=== PATIENT | male | born 1970 | race Caucasian/White ===

== ENCOUNTER 2018-04-11 01:04 | Inpatient (IN) | payer OTHER ==
[~2018-04-11] VITALS: Ht 172.7 cm; Wt 83.9 kg
[2018-04-11] VITALS (7 sets, daily range): BP systolic 115–141; BP diastolic 54–81
[2018-04-11] MEDS ORDERED: LEVETIRACETAM1000 MG ORAL (01:17)
[2018-04-11] MEDS ORDERED: PANTOPRAZOLE SO40 MG ORAL (01:17)
[2018-04-11] MEDS ORDERED: VENTOLIN HFA18 GM INH (01:17)
[2018-04-11] MEDS ORDERED: NICODERM CQ1 EAC3 TD (01:17)
[2018-04-11] MEDS ORDERED: TOPIRAMATE100 MG ORAL (01:17)
[2018-04-11] MEDS ORDERED: NORCO 5-325 TA1 EACH ORAL (01:17)
[2018-04-11] MEDS ORDERED: LORAZEPAM0.5 MG ORAL (01:17)
[2018-04-11] MEDS ORDERED: RISPERDAL1 MG PO (01:17)
[2018-04-11] MEDS ORDERED: ROBAFEN-DM SYR118 ML PO (01:17)
[2018-04-11] MEDS ORDERED: TRIPLE ANTIBIO1 EAC1 TP (01:17)
[2018-04-11 02:54] LABS: BASOPHILS % (AUTO) 0.5 % (0.0-2.0); EOSINOPHILS % (AUTO) 3.7 % (0.0-3.0); HEMATOCRIT 36.6 % (42.0-52.0); HEMOGLOBIN 12.3 G/DL (14.2-18.0); LYMPHOCYTES % (AUTO) 36.9 % (20.0-45.0); MEAN CORPUSCULAR VOLUME 86 FL (80-99); MONOCYTES % (AUTO) 7.9 % (1.0-10.0); NEUTROPHILS % (AUTO) 50.9 % (45.0-75.0); PLATELET COUNT 233 K/UL (150-450); RED BLOOD COUNT 4.25 M/UL (4.70-6.10); WHITE BLOOD COUNT 7.9 K/UL (4.8-10.8)
[2018-04-11 02:56] LABS: ANION GAP 9 mmol/L (5-15); BLOOD UREA NITROGEN 14 mg/dL (7-18); CALCIUM 8.6 MG/DL (8.5-10.1); CARBON DIOXIDE 24 MMOL/L (21-32); CHLORIDE 106 MMOL/L (98-107); CREATININE 0.8 MG/DL (0.55-1.30); POTASSIUM 3.7 MMOL/L (3.5-5.1); SODIUM 139 MMOL/L (136-145)
[2018-04-11 03:00] LABS: ALANINE AMINOTRANSFERASE 15 U/L (12-78); ALBUMIN 3.6 G/DL (3.4-5.0); ALBUMIN/GLOBULIN RATIO 1.1 (1.0-2.7); ALKALINE PHOSPHATASE 45 U/L (46-116); ASPARTATE AMINO TRANSFERASE 12 U/L (15-37); BILIRUBIN,TOTAL 0.2 MG/DL (0.2-1.0)
[2018-04-11] MEDS ORDERED: CARBAMAZEPINE ORAL (03:13)
[2018-04-11] MEDS ORDERED: DULERA 200 MCG/13 GM IH (03:13)
[2018-04-11] MEDS ORDERED: CLOBAZAM10 MG PO (03:13)
[2018-04-11] MEDS ORDERED: TRICOR54 MG ORAL (03:13)
[2018-04-11] MEDS ORDERED: BENZTROPINE ME0.5 MG PO (03:13)
--- NOTE | 2018-04-11 04:45 | Emergency Room Report ---
History of Present Illness General Chief Complaint: Behavioral Complaint Source: Patient, Medical Record, EMS Present Illness HPI Patient presents with agitation. He is at a [facility] facility for seizures and schizoaffective bipolar disorder. Apparently he gets agitated when female nurses to attend to him. They were changing his diaper and he started to become combative. Is also spitting at people. She denies any suicidal or homicidal ideation. However the police are placing him on a 5150 hold. It is uncertain whether he was medicated before he was sent in. No seizure activity was noted. The patient denies pain, shortness of breath, nausea vomiting diarrhea or dysuria. (He seems to understand these questions.) The patient has a history of seizures. The patient has a history of bipolar schizoaffective disorder. Allegedly he's had a CVA with hemiplegia (however, exam is against this). Allergies: Coded Allergies: No Known Allergies (Unverified , 04/11/18) Patient History Limited by: medical condition Past Medical History: see triage record, old chart reviewed Social History: Denies: smoking, alcohol use, drug use Social History Narrative [facility] Reviewed Nursing Documentation: PMH: Agreed; PSxH: Agreed Nursing Documentation-PMH Past Medical History: No History, Except For Hx Gastrointestinal Problems: Yes - dysphagia, muscle weakness Hx Neurological Problems: Yes - history of falling, cerebral palsy Hx Cerebrovascular Accident: Yes - hemiphlegia, Hx Seizures: Yes - epilepsy Review of Systems All Other Systems: limited Physical Exam Vital Signs Date Time Temp Pulse Resp B/P (MAP) Pulse Ox O2 Delivery O2 Flow Rate FiO2 04/11/18 01:05 98.2 70 18 110/70 98 Room Air Sp02 EP Interpretation: reviewed, normal General Appearance: Chronically Ill Head: normocephalic Eyes: bilateral eye normal inspection, bilateral eye PERRL ENT: moist mucus membranes - poor dentition Neck: supple Respiratory: lungs clear, normal breath sounds Cardiovascular #1: regular rate, rhythm Cardiovascular #2: 2+ radial (R) Gastrointestinal: normal inspection, normal bowel sounds, non tender, no mass, non-distended Genitourinary: other - uncircumcised Musculoskeletal: back normal, normal range of motion Neurologic: alert, motor strength/tone normal, DTRs symmetric, sensory intact, other - yes and no answers Psychiatric: no suicidal/homicidal ideation, depressed affect Skin: normal inspection, warm/dry Medical Decision Making Diagnostic Impression: Primary Impression: Violent behavior Additional Impressions: Schizoaffective disorder, bipolar type Delirium ER Course Patient presents with violent behavior with history of schizoaffective bipolar disorder and seizures. Differential includes exacerbation of underlying disease , brain bleed, underlying infection, electrolyte imbalance amongst others. Patient will be evaluated with EKG, CT of the head, and labs. The patient will receive IV hydration. At this time he is no longer threatening staff or violent. The police placed him on a 5150 and therefore either he will need to be admitted to the hospital or evaluated by a psychiatrist in the morning. EKG with normal sinus rhythm, nonspecific ST-T wave changes rate of 67. Labs normal WBC, low H/H. CMP essentially normal. Tox + for benzos. UA with nitrites but few WBC (uncirc). Patient needed sedation for CT of head. Kicking at RN and non-behavioral restraints applied until sedated. Improved with sedation. Still with poor following commands. The facility where he came from is unable to deal with uncontrolled behavior. Due to the abnormal CT and continued ALOC, needs admission for further evaluation of delirium and violent behavior. Admit med with Dr. Jose Carlos tee. Also requested consultation from Dr. Crowley. Laboratory Tests Test 04/11/18 02:20 04/11/18 05:35 White Blood Count 7.9 K/UL (4.8-10.8) Red Blood Count 4.25 M/UL (4.70-6.10) L Hemoglobin 12.3 G/DL (14.2-18.0) L Hematocrit 36.6 % (42.0-52.0) L Mean Corpuscular Volume 86 FL (80-99) Mean Corpuscular Hemoglobin 29.0 PG (27.0-31.0) Mean Corpuscular Hemoglobin Concent 33.6 G/DL (32.0-36.0) Red Cell Distribution Width 11.0 % (11.6-14.8) L Platelet Count 233 K/UL (150-450) Mean Platelet Volume 5.5 FL (6.5-10.1) L Neutrophils (%) (Auto) 50.9 % (45.0-75.0) Lymphocytes (%) (Auto) 36.9 % (20.0-45.0) Monocytes (%) (Auto) 7.9 % (1.0-10.0) Eosinophils (%) (Auto) 3.7 % (0.0-3.0) H Basophils (%) (Auto) 0.5 % (0.0-2.0) Sodium Level 139 MMOL/L (136-145) Potassium Level 3.7 MMOL/L (3.5-5.1) Chloride Level 106 MMOL/L (98-107) Carbon Dioxide Level 24 MMOL/L (21-32) Anion Gap 9 mmol/L (5-15) Blood Urea Nitrogen 14 mg/dL (7-18) Creatinine 0.8 MG/DL (0.55-1.30) Estimate Glomerular Filtration Rate > 60 mL/min (>60) Glucose Level 83 MG/DL (74-106) Calcium Level 8.6 MG/DL (8.5-10.1) Total Bilirubin 0.2 MG/DL (0.2-1.0) Aspartate Amino Transferase (AST) 12 U/L (15-37) L Alanine Aminotransferase (ALT) 15 U/L (12-78) Alkaline Phosphatase 45 U/L (46-116) L Total Protein 7.0 G/DL (6.4-8.2) Albumin 3.6 G/DL (3.4-5.0) Globulin 3.4 g/dL Albumin/Globulin Ratio 1.1 (1.0-2.7) Salicylates Level 0.9 ug/mL (2.8-20) L Acetaminophen Level < 2 MCG/ML (10-30) L Serum Alcohol < 3 mg/dL Urine Opiates Screen Negative (NEGATIVE) Urine Barbiturates Screen Negative (NEGATIVE) Phencyclidine (PCP) Screen Negative (NEGATIVE) Urine Amphetamines Screen Negative (NEGATIVE) Urine Benzodiazepines Screen Positive (NEGATIVE) H Urine Cocaine Screen Negative (NEGATIVE) Urine Marijuana (THC) Screen Negative (NEGATIVE) EKG Diagnostic Results Rate: normal Rhythm: NSR ST Segments: no acute changes Rhythm Strip Diag. Results EP Interpretation: yes Rhythm: NSR, no PVC's, no ectopy Chest X-Ray Diagnostic Results Chest X-Ray Diagnostic Results : Chest X-Ray Ordered: Yes # of Views/Limited/Complete: 1 View Indication: Other EP Interpretation: Yes CT/MRI/US Diagnostic Results CT/MRI/US Diagnostic Results : Imaging Test Ordered: head Impression assymmetric ventricles Last Vital Signs Date Time Temp Pulse Resp B/P (MAP) Pulse Ox O2 Delivery O2 Flow Rate FiO2 04/11/18 08:06 80 15 123/70 99 Room Air 04/11/18 06:00 98.2 Status: improved Disposition: ADMITTED INPATIENT Condition: Serious Referrals: NON PHYSICIAN (PCP) Bo Monreal MD Apr 11, 2018 04:45
[2018-04-11] MEDS ORDERED: LORazepam Inj 2mg/ml 1ml IV ONE (05:45)
[2018-04-11 08:22] LABS: APPEARANCE,URINE SLIGHTLY CLOUDY; BILIRUBIN, URINE NEGATIVE (NEGATIVE); COLOR,URINE PALE YELLOW; GLUCOSE, URINE (UA) NEGATIVE (NEGATIVE); KETONES,URINE NEGATIVE (NEGATIVE); LEUKOCYTE ESTERASE ,URINE NEGATIVE (NEGATIVE); NITRITE,URINE POSITIVE (NEGATIVE); PH,URINE 7 (4.5-8.0); PROTEIN,URINE NEGATIVE (NEGATIVE); UROBILINOGEN,URINE NORMAL MG/DL (0.0-1.0)
--- NOTE | 2018-04-11 09:55 | Diagnostic Imaging Report ---
EXAM: CT Head Without Intravenous Contrast CLINICAL HISTORY: ALOC TECHNIQUE: Axial computed tomography images of the head/brain without intravenous contrast. CTDI is 70.53 mGy and DLP is 1425 mGy-cm. One or more of the following dose reduction techniques were used: automated exposure control, adjustment of the mA and/or kV according to patient size, use of iterative reconstruction technique. COMPARISON: No relevant prior studies available. FINDINGS: Brain: No evidence of acute intracranial hemorrhage or mass effect. There is abnormal configuration of the brain parenchyma, most likely congenital, with offset of the falx cerebri to the left with asymmetric decreased volume of the left cerebral hemisphere relative to the right, with partial extension of the left frontal and parietal lobes to the right of the falx. Ventricles: Unremarkable. No ventriculomegaly. Bones/joints: Unremarkable. No depressed skull fracture. Soft tissues: Unremarkable. Sinuses: Unremarkable as visualized. No acute sinusitis. Mastoid air cells: Unremarkable as visualized. No mastoid effusion. IMPRESSION: 1. No evidence of acute intracranial hemorrhage. 2. 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
--- NOTE | 2018-04-11 10:15 | History and Physical Report ---
DATE OF ADMISSION: 04/11/2018 TIME SEEN: On 04/11/2018 at 9 a.m. CONSULTANTS: 1. Lenora Ponce M.D. 2. Luciano Mcdonald M.D. CHIEF COMPLAINT: Delirium, bipolar, confusion. BRIEF HISTORY: This is a 48-year-old male, who presents to [facility] this morning, very agitated, confused, and had to be sedated. Currently lethargic, sedated, he is on 5150 hold. We will admit shortly for psych evaluation. Currently, lethargic in bed, nonverbal. REVIEW OF SYSTEMS: Unavailable. PAST MEDICAL HISTORY: Include bipolar, violent behavior. PAST SURGICAL HISTORY: Unknown. ALLERGIES: Denies. MEDICATIONS: Include lorazepam. SOCIAL HISTORY: Unable to obtain secondary to the patient being very lethargic and sedated now. PHYSICAL EXAMINATION: GENERAL: Lethargic, sleepy in bed, sedated in the ER [facility]. VITAL SIGNS: Temperature is 98 degrees, pulse 80, respiratory rate 14, blood pressure 119/54. CARDIOVASCULAR: No murmur. LUNGS: Distant and clear. ABDOMEN: Bowel sounds positive. Nontender. Nondistended. EXTREMITIES: No cyanosis or edema. NEUROLOGIC: The patient is flaccid in bed, very sedated currently. LABORATORY AND DIAGNOSTIC DATA: Laboratories at this time show hemoglobin 12.3, otherwise CBC is normal. BMP is normal. Urinalysis is positive nitrites, otherwise negative. Urine-tox is positive for benzo. ASSESSMENT: Delirium, UTI, bipolar, anemia, confusion. PLAN: IV fluid. Dietary followup. Psych treatment. Antibiotics per Infectious Disease, Transfer to psych hospital if possible. We will continue to follow this patient. CBC and BMP in the morning. Jareth Branch D.O. DR: Jessi JOB#: [id number] CC:
[2018-04-11] MEDS ORDERED: Mylanta II UD 30ml ORAL PRN (12:45)
[2018-04-11] MEDS ORDERED: Miralax 17gm pkt ORAL PRN (12:45)
[2018-04-11] MEDS ORDERED: Norco 5mg/325mg tab ORAL PRN (12:45)
[2018-04-11] MEDS ORDERED: LORazepam Inj 2mg/ml 1ml IV PRN (12:45)
[2018-04-11] MEDS ORDERED: Morphine Sulfate 2mg/ml Inj IVP PRN (12:45)
--- NOTE | 2018-04-11 12:57 | Consultation ---
Consult Note Consult Note # [id number] Mc Staples MD Apr 11, 2018 12:57
[2018-04-11] MEDS: Topiramate 100mg tab ORAL SCH (17:39)
--- NOTE | 2018-04-11 18:30 | Consultation ---
DATE OF CONSULTATION: 04/11/2018 INFECTIOUS DISEASE CONSULTATION CONSULTING PHYSICIAN: Mc Staples M.D. REFERRING PHYSICIAN: Jareth Branch D.O. REASON FOR CONSULTATION: Evaluation of the patient for sepsis, possible need for antibiotic treatment. HISTORY OF PRESENT ILLNESS: The patient is a 48-year-old male with multiple medical problems, who was brought to this medical center due to worsening of mental status. Infectious Diseases consultation has been requested for possible sepsis as the main contributing factor. There is not much information available, however, according to nurse, the patient's mental status has changed compared to his baseline. The patient is poor historian. Much of the information is gathered through the chart and speaking to staff. PAST MEDICAL HISTORY: 1. Bipolar disorder. 2. History of cerebral palsy. 3. History of seizure disorder. SOCIAL HISTORY: The patient lives in a longterm. ALLERGIES: No known drug allergies. MEDICATIONS: Currently off of antibiotics. PHYSICAL EXAMINATION: VITAL SIGNS: Temperature 98.2, pulse 86, blood pressure 122/70, respiratory rate 15. HEENT: No pale conjunctivae. No icterus. NECK: No lymphadenopathy. CHEST: Clear. HEART: S1 and S2. ABDOMEN: Soft, nontender. EXTREMITIES: No cyanosis at this time. NEUROLOGIC: Awake, appears to be confused. LABORATORY AND DIAGNOSTIC DATA: UA, nitrite positive, 2-4 white blood cells, red blood cells. Head CT, no acute process. ASSESSMENT: 1. Worsening of mental status compared to the baseline, it appears that the patient has some improvement during this stay. 2. No evidence of infectious process at this time (normal white blood cells, afebrile, no tachycardia or hypertension). We will rule out probable bacteremia, urinary tract infection, or pneumonia. PLAN: 1. We will monitor the patient off of antibiotics at this point. 2. We will send cultures (blood, urine, sputum). 3. We will obtain a chest x-ray. 4. We will monitor the patient's laboratories, cultures. 5. If the patient's medical condition worsens due to significant infection based on laboratories, we will start the patient on antibiotic treatment. Mc Staples M.D. DR: Shad JOB#: [id number] CC:
[2018-04-12] VITALS: BP 125/66
[2018-04-12 04:00] VITALS: BP 132/70
[2018-04-12 08:00] VITALS: BP 114/72
[2018-04-12] MEDS: Topiramate 100mg tab ORAL SCH ×2 (08:10→17:41)
[2018-04-12 08:11] LABS: BASOPHILS % (AUTO) 0.6 % (0.0-2.0); EOSINOPHILS % (AUTO) 3.3 % (0.0-3.0); HEMATOCRIT 36.2 % (42.0-52.0); HEMOGLOBIN 12.5 G/DL (14.2-18.0); LYMPHOCYTES % (AUTO) 29.4 % (20.0-45.0); MEAN CORPUSCULAR VOLUME 85 FL (80-99); MONOCYTES % (AUTO) 6.4 % (1.0-10.0); NEUTROPHILS % (AUTO) 60.3 % (45.0-75.0); PLATELET COUNT 235 K/UL (150-450); RED BLOOD COUNT 4.26 M/UL (4.70-6.10); WHITE BLOOD COUNT 9.4 K/UL (4.8-10.8)
--- NOTE | 2018-04-12 08:37 | General Progress Note ---
Assessment/Plan Problem List: (1) Anemia ICD Codes: D64.9 - Anemia, unspecified SNOMED: 347451861 (2) Delirium ICD Codes: R41.0 - Disorientation, unspecified SNOMED: 4879256 (3) Schizoaffective disorder, bipolar type ICD Codes: F25.0 - Schizoaffective disorder, bipolar type SNOMED: 36404345 (4) Violent behavior ICD Codes: R45.6 - Violent behavior SNOMED: 385277449 Status: unchanged Assessment/Plan ot pt diet psyc tx /transfer cbc bmp am Subjective Constitutional: Reports: weakness Allergies: Coded Allergies: No Known Allergies (Unverified , 04/11/18) All Systems: reviewed and negative except above Subjective calm in bed consfused Objective Last 24 Hour Vital Signs Date Time Temp Pulse Resp B/P (MAP) Pulse Ox O2 Delivery O2 Flow Rate FiO2 04/12/18 08:00 98.4 80 19 114/72 (86) 98 04/12/18 04:00 97.9 71 18 132/70 (90) 97 04/12/18 00:00 98.2 69 20 125/66 (85) 97 04/11/18 20:14 Room Air 04/11/18 20:00 97.7 70 18 129/81 (97) 98 04/11/18 16:00 97.2 70 18 118/72 (87) 99 04/11/18 14:30 Room Air 04/11/18 13:03 97.0 67 18 115/74 (88) 100 Intake and Output 04/11/18 04/12/18 19:00 07:00 Intake Total 620 ml 650 ml Output Total 850 ml Balance 620 ml -200 ml Intake Oral 620 ml 650 ml Output Urine Total 850 ml # Voids 5 Laboratory Tests 04/12/18 06:39: White Blood Count 9.4, Red Blood Count 4.26L, Hemoglobin 12.5L, Hematocrit 36.2L , Mean Corpuscular Volume 85, Mean Corpuscular Hemoglobin 29.3, Mean Corpuscular Hemoglobin Concent 34.5, Red Cell Distribution Width 11.0L, Platelet Count 235, Mean Platelet Volume 5.9L, Neutrophils (%) (Auto) 60.3, Lymphocytes (%) (Auto) 29.4, Monocytes (%) (Auto) 6.4, Eosinophils (%) (Auto) 3.3H, Basophils (%) (Auto) 0.6, Sodium Level [Pending], Potassium Level [Pending ], Chloride Level [Pending], Carbon Dioxide Level [Pending], Blood Urea Nitrogen [Pending], Creatinine [Pending], Estimat Glomerular Filtration Rate [ Pending], Glucose Level [Pending], Calcium Level [Pending], Total Bilirubin [ Pending], Aspartate Amino Transf (AST/SGOT) [Pending], Alanine Aminotransferase (ALT/SGPT) [Pending], Alkaline Phosphatase [Pending], Total Protein [Pending], Albumin [Pending], Globulin [Pending], Triglycerides Level [Pending], Cholesterol Level [Pending], LDL Cholesterol [Pending], HDL Cholesterol [Pending ], Cholesterol/HDL Ratio [Pending], Thyroid Stimulating Hormone (TSH) [Pending] Height (Feet): 5 Height (Inches): 8.00 Weight (Pounds): 203 General Appearance: confused EENT: normal ENT inspection Neck: normal alignment Cardiovascular: normal peripheral pulses, normal rate, regular rhythm Respiratory/Chest: chest wall non-tender, lungs clear, normal breath sounds Abdomen: normal bowel sounds, non tender, soft Extremities: normal inspection Edema: no edema noted Arm (L), no edema noted Arm (R), no edema noted Leg (L), no edema noted Leg (R), no edema noted Pedal (L), no edema noted Pedal (R), no edema noted Generalized Neurologic: motor weakness Skin: normal pigmentation, warm/dry Jareth Branch DO Apr 12, 2018 08:37
[2018-04-12 08:41] LABS: ALANINE AMINOTRANSFERASE 19 U/L (12-78); ALBUMIN 3.8 G/DL (3.4-5.0); ALBUMIN/GLOBULIN RATIO 1.1 (1.0-2.7); ALKALINE PHOSPHATASE 47 U/L (46-116); ANION GAP 12 mmol/L (5-15); ASPARTATE AMINO TRANSFERASE 16 U/L (15-37); BILIRUBIN,TOTAL 0.2 MG/DL (0.2-1.0); BLOOD UREA NITROGEN 8 mg/dL (7-18); CARBON DIOXIDE 20 MMOL/L (21-32); CHLORIDE 104 MMOL/L (98-107); CHOLESTEROL 158 MG/DL (< 200); CREATININE 0.9 MG/DL (0.55-1.30); HDL CHOLESTEROL 48 MG/DL (40-60); POTASSIUM 3.7 MMOL/L (3.5-5.1); SODIUM 136 MMOL/L (136-145); TRIGLYCERIDES 100 MG/DL (30-150)
--- NOTE | 2018-04-12 08:57 | Diagnostic Imaging Report ---
EXAM: XR Chest, 1 View CLINICAL HISTORY: ABN CHST TECHNIQUE: Frontal view of the chest. COMPARISON: No relevant prior studies available. FINDINGS: Lungs: Unremarkable. No consolidation. Pleural space: Unremarkable. No pneumothorax. Heart: Unremarkable. No cardiomegaly. Mediastinum: Unremarkable. Bones/joints: Chronic left rib deformities. IMPRESSION: No evidence of acute pulmonary disease
[2018-04-12 12:00] VITALS: BP 129/82
[2018-04-12 16:00] VITALS: BP 118/79
[2018-04-12] MEDS: LORazepam 0.5mg tab ORAL PRN (16:39)
[2018-04-12 20:00] VITALS: BP 141/64
[2018-04-12] MEDS: Zolpidem 5mg tab ORAL PRN (20:28)
[2018-04-13 04:08] VITALS: BP 137/71
[2018-04-13 06:31] LABS: BASOPHILS % (AUTO) 0.6 % (0.0-2.0); EOSINOPHILS % (AUTO) 3.6 % (0.0-3.0); HEMATOCRIT 40.3 % (42.0-52.0); HEMOGLOBIN 13.9 G/DL (14.2-18.0); LYMPHOCYTES % (AUTO) 35.8 % (20.0-45.0); MEAN CORPUSCULAR VOLUME 86 FL (80-99); MONOCYTES % (AUTO) 7.5 % (1.0-10.0); NEUTROPHILS % (AUTO) 52.5 % (45.0-75.0); PLATELET COUNT 269 K/UL (150-450); WHITE BLOOD COUNT 7.4 K/UL (4.8-10.8)
[2018-04-13 06:54] LABS: ANION GAP 10 mmol/L (5-15); BLOOD UREA NITROGEN 3 mg/dL (7-18); CALCIUM 9.5 MG/DL (8.5-10.1); CARBON DIOXIDE 24 MMOL/L (21-32); CHLORIDE 103 MMOL/L (98-107); CREATININE 0.8 MG/DL (0.55-1.30); POTASSIUM 3.9 MMOL/L (3.5-5.1); SODIUM 136 MMOL/L (136-145)
[2018-04-13 08:00] VITALS: BP 120/76
[2018-04-13] MEDS: Topiramate 100mg tab ORAL SCH ×2 (08:01→17:10)
[2018-04-13] MEDS: LORazepam 0.5mg tab ORAL PRN ×2 (10:41→17:10)
[2018-04-13 12:00] VITALS: BP 118/87
--- NOTE | 2018-04-13 12:23 | Infectious Diseases Prog Note ---
Assessment/Plan Assessment/Plan ASSESSMENT: 1. Worsening of mental status compared to the baseline, it appears that the patient has some improvement during this stay. -CT brain: No evidence of acute intracranial hemorrhage. 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 2. No evidence of infectious process at this time (normal white blood cells, afebrile, no tachycardia or hypertension). -u/a neg, ucx E.coli (colonizer) -Bcx NTD -CXR: no acute diseae -Bipolar disorder. -History of cerebral palsy. -History of seizure disorder. PLAN: 1. We will monitor the patient off of antibiotics at this point. 2. f/u cultures (blood). 3. We will monitor the patient's laboratories, cultures. 4. If the patient's medical condition worsens due to significant infection based on laboratories, we will start the patient on antibiotic treatment. Subjective Allergies: Coded Allergies: No Known Allergies (Unverified , 04/11/18) Subjective afebrile no leukocytosis off abx Objective Vital Signs Last 24 Hour Vital Signs Date Time Temp Pulse Resp B/P (MAP) Pulse Ox O2 Delivery O2 Flow Rate FiO2 04/13/18 12:00 97.2 72 18 118/87 (97) 100 04/13/18 09:00 Room Air 04/13/18 08:00 97.7 67 18 120/76 (91) 98 04/13/18 04:08 98.1 69 19 137/71 (93) 97 04/12/18 20:12 Room Air 04/12/18 20:00 98.3 73 19 141/64 (89) 98 04/12/18 16:00 98.1 72 19 118/79 (92) 98 Height (Feet): 5 Height (Inches): 8.00 Weight (Pounds): 203 Objective HEENT: No pale conjunctivae. No icterus. NECK: No lymphadenopathy. CHEST: Clear. HEART: S1 and S2. ABDOMEN: Soft, nontender. EXTREMITIES: No cyanosis at this time. NEUROLOGIC: Awake, appears to be confused. Microbiology Date/Time Source Procedure Growth Status 12/8/18 13:25 Blood Blood Culture - Preliminary NO GROWTH AFTER 24 HOURS Resulted 04/11/18 13:10 Blood Blood Culture - Preliminary NO GROWTH AFTER 24 HOURS Resulted 04/11/18 05:35 Urine,Clean Catch Urine Culture - Final Escherichia Coli Complete Laboratory Tests Test 04/13/18 05:35 White Blood Count 7.4 K/UL (4.8-10.8) Red Blood Count 4.70 M/UL (4.70-6.10) Hemoglobin 13.9 G/DL (14.2-18.0) L Hematocrit 40.3 % (42.0-52.0) L Mean Corpuscular Volume 86 FL (80-99) Mean Corpuscular Hemoglobin 29.6 PG (27.0-31.0) Mean Corpuscular Hemoglobin Concent 34.6 G/DL (32.0-36.0) Red Cell Distribution Width 11.0 % (11.6-14.8) L Platelet Count 269 K/UL (150-450) Mean Platelet Volume 6.1 FL (6.5-10.1) L Neutrophils (%) (Auto) 52.5 % (45.0-75.0) Lymphocytes (%) (Auto) 35.8 % (20.0-45.0) Monocytes (%) (Auto) 7.5 % (1.0-10.0) Eosinophils (%) (Auto) 3.6 % (0.0-3.0) H Basophils (%) (Auto) 0.6 % (0.0-2.0) Sodium Level 136 MMOL/L (136-145) Potassium Level 3.9 MMOL/L (3.5-5.1) Chloride Level 103 MMOL/L (98-107) Carbon Dioxide Level 24 MMOL/L (21-32) Anion Gap 10 mmol/L (5-15) Blood Urea Nitrogen 3 mg/dL (7-18) L Creatinine 0.8 MG/DL (0.55-1.30) Estimat Glomerular Filtration Rate > 60 mL/min (>60) Glucose Level 120 MG/DL (74-106) H Calcium Level 9.5 MG/DL (8.5-10.1) Current Medications Medications (Trade) Dose Ordered Sig/Con Route PRN Reason Start Time Stop Time Status Last Admin Dose Admin Acetaminophen (Tylenol) 650 mg Q4H PRN ORAL T>100.5 04/11/18 12:45 05/11/18 12:44 Acetaminophen/ Hydrocodone Bitart (Pope 5/325) 1 tab Q6H PRN ORAL PAIN 4-10 04/11/18 12:45 04/18/18 12:44 Al Hydroxide/Mg Hydroxide (Mylanta II) 30 ml Q6H PRN ORAL dyspepsia 04/11/18 12:45 05/11/18 12:44 Dextrose (Dextrose 50%) 25 ml Q30M PRN IV Hypoglycemia 04/11/18 13:00 05/11/18 12:48 Dextrose (Dextrose 50%) 50 ml Q30M PRN IV hypoglycemia 04/11/18 13:00 05/11/18 12:59 Levetiracetam (Keppra) 1,000 mg Q12HR ORAL 04/11/18 21:00 05/11/18 20:59 04/13/18 08:01 Lorazepam (Ativan) 0.5 mg Q4H PRN ORAL For Anxiety 04/12/18 16:30 04/19/18 16:29 04/13/18 10:41 Morphine Sulfate (Morphine Sulfate) 1 mg Q4H PRN IVP Severe Pain (Pain Scale 7-10) 04/11/18 12:45 04/18/18 12:44 Ondansetron HCl (Zofran) 4 mg Q6H PRN ORAL Nausea & Vomiting 04/13/18 10:15 05/13/18 10:14 04/13/18 10:41 Polyethylene Glycol (Miralax) 17 gm HSPRN PRN ORAL Constipation 04/11/18 12:45 05/11/18 12:44 Risperidone (RisperDAL) 1 mg QHS ORAL 04/11/18 21:00 05/11/18 20:59 04/12/18 20:28 Topiramate (Topamax) 100 mg TWICE A DAY ORAL 04/11/18 18:00 05/11/18 17:59 04/13/18 08:01 Zolpidem Tartrate (Ambien) 5 mg HSPRN PRN ORAL Insomnia 04/11/18 21:00 04/18/18 20:59 04/12/18 20:28 Tressa Sanchez M.D. Apr 13, 2018 12:23
--- NOTE | 2018-04-13 12:30 | Consultation ---
History of Present Illness General Date patient seen: Apr 13, 2018 Chief Complaint: Behavioral Complaint Present Illness HPI 48 year old male with hx of CVA with hemiplegia, dysphagia, muscle weakness, cerebral palsy, hemiplegia, schizoaffective bipolar disorder, epilepsy presented to ER from a [facility] with agitation. Apparently he gets agitated when female nurses try to attend to him. They were changing his diaper and he started to become combative. Is also spitting at people. He is admitted because of acute delirium. He was found to have pyuria as well. Allergies: Coded Allergies: No Known Allergies (Unverified , 04/11/18) Medication History Scheduled Albuterol Sulfate (Ventolin Hfa), 2 PUFFS INH EVERY 6 HOURS, (Reported) Carbamazepine (Tegretol Xr), 400 MG ORAL EVERY 12 HOURS, (Reported) Fenofibrate (Fenofibrate), 54 MG ORAL DAILY, (Reported) Levetiracetam (Levetiracetam), 1,000 MG ORAL TWICE A DAY, (Reported) Lorazepam* (Lorazepam*), 0.5 MG ORAL THREE TIMES A DAY, (Reported) Pantoprazole* (Pantoprazole*), 40 MG ORAL DAILY, (Reported) Risperidone* (Risperdal*), 1 MG PO DAILY, (Reported) Topiramate* (Topamax*), 100 MG ORAL TWICE A DAY, (Reported) Scheduled PRN Hydrocodone Bit/Acetaminophen 5-325* ([place] 5-325*), 1 TAB ORAL Q6H PRN for For Pain, (Reported) Miscellaneous Medications Benztropine Mesylate* (Cogentin*), 0.5 MG PO, (Reported) Guaifenesin/Dextromethorphan (Robafen-Dm Syrup), 118 ML PO, (Reported) Mometasone/Formoterol (Dulera 200 Mcg/5 Mcg Inhaler), 13 GM IH, (Reported) Neomy Sulf/Bacitrac Zn/Poly (Triple Antibiotic Ointment), 1 EACH TP, (Reported) Nicotine (Nicoderm Cq), 1 EACH TD, (Reported) cloBAZam (cloBAZam), 10 MG PO, (Reported) Patient History Healthcare decision maker Resuscitation status Full Code Advanced Directive on File Past Medical/Surgical History Past Medical/Surgical History: (1) Seizure disorder (2) Schizoaffective disorder, bipolar type Review of Systems All Other Systems: negative except mentioned in HPI Physical Exam General Appearance: WD/WN Lines, tubes and drains: peripheral HEENT: normocephalic, atraumatic Neck: non-tender, normal alignment Respiratory/Chest: chest wall non-tender, lungs clear Cardiovascular/Chest: normal peripheral pulses, normal rate Abdomen: normal bowel sounds, non tender Genitourinary/Rectal: normal genital exam, normal rectal exam Extremities: normal range of motion, non-tender Skin Exam: normal pigmentation Last 24 Hour Vital Signs Date Time Temp Pulse Resp B/P (MAP) Pulse Ox O2 Delivery O2 Flow Rate FiO2 04/13/18 12:00 97.2 72 18 118/87 (97) 100 04/13/18 09:00 Room Air 04/13/18 08:00 97.7 67 18 120/76 (91) 98 04/13/18 04:08 98.1 69 19 137/71 (93) 97 04/12/18 20:12 Room Air 04/12/18 20:00 98.3 73 19 141/64 (89) 98 04/12/18 16:00 98.1 72 19 118/79 (92) 98 Intake and Output 04/12/18 04/13/18 19:00 07:00 Intake Total 1314 ml 600 ml Balance 1314 ml 600 ml Intake Oral 1314 ml 600 ml # Voids 6 5 # Bowel Movements 1 Laboratory Tests Test 04/13/18 05:35 White Blood Count 7.4 K/UL (4.8-10.8) Red Blood Count 4.70 M/UL (4.70-6.10) Hemoglobin 13.9 G/DL (14.2-18.0) L Hematocrit 40.3 % (42.0-52.0) L Mean Corpuscular Volume 86 FL (80-99) Mean Corpuscular Hemoglobin 29.6 PG (27.0-31.0) Mean Corpuscular Hemoglobin Concent 34.6 G/DL (32.0-36.0) Red Cell Distribution Width 11.0 % (11.6-14.8) L Platelet Count 269 K/UL (150-450) Mean Platelet Volume 6.1 FL (6.5-10.1) L Neutrophils (%) (Auto) 52.5 % (45.0-75.0) Lymphocytes (%) (Auto) 35.8 % (20.0-45.0) Monocytes (%) (Auto) 7.5 % (1.0-10.0) Eosinophils (%) (Auto) 3.6 % (0.0-3.0) H Basophils (%) (Auto) 0.6 % (0.0-2.0) Sodium Level 136 MMOL/L (136-145) Potassium Level 3.9 MMOL/L (3.5-5.1) Chloride Level 103 MMOL/L (98-107) Carbon Dioxide Level 24 MMOL/L (21-32) Anion Gap 10 mmol/L (5-15) Blood Urea Nitrogen 3 mg/dL (7-18) L Creatinine 0.8 MG/DL (0.55-1.30) Estimat Glomerular Filtration Rate > 60 mL/min (>60) Glucose Level 120 MG/DL (74-106) H Calcium Level 9.5 MG/DL (8.5-10.1) Height (Feet): 5 Height (Inches): 8.00 Weight (Pounds): 203 Medications Current Medications Medications (Trade) Dose Ordered Sig/Con Route PRN Reason Start Time Stop Time Status Last Admin Dose Admin Acetaminophen (Tylenol) 650 mg Q4H PRN ORAL T>100.5 04/11/18 12:45 05/11/18 12:44 Acetaminophen/ Hydrocodone Bitart ([place] 5/325) 1 tab Q6H PRN ORAL PAIN 4-10 04/11/18 12:45 04/18/18 12:44 Al Hydroxide/Mg Hydroxide (Mylanta II) 30 ml Q6H PRN ORAL dyspepsia 04/11/18 12:45 05/11/18 12:44 Dextrose (Dextrose 50%) 25 ml Q30M PRN IV Hypoglycemia 04/11/18 13:00 05/11/18 12:48 Dextrose (Dextrose 50%) 50 ml Q30M PRN IV hypoglycemia 04/11/18 13:00 05/11/18 12:59 Levetiracetam (Keppra) 1,000 mg Q12HR ORAL 04/11/18 21:00 05/11/18 20:59 04/13/18 08:01 Lorazepam (Ativan) 0.5 mg Q4H PRN ORAL For Anxiety 04/12/18 16:30 04/19/18 16:29 04/13/18 10:41 Morphine Sulfate (Morphine Sulfate) 1 mg Q4H PRN IVP Severe Pain (Pain Scale 7-10) 04/11/18 12:45 04/18/18 12:44 Ondansetron HCl (Zofran) 4 mg Q6H PRN ORAL Nausea & Vomiting 04/13/18 10:15 05/13/18 10:14 04/13/18 10:41 Polyethylene Glycol (Miralax) 17 gm HSPRN PRN ORAL Constipation 04/11/18 12:45 05/11/18 12:44 Risperidone (RisperDAL) 1 mg QHS ORAL 04/11/18 21:00 05/11/18 20:59 04/12/18 20:28 Topiramate (Topamax) 100 mg TWICE A DAY ORAL 04/11/18 18:00 05/11/18 17:59 04/13/18 08:01 Zolpidem Tartrate (Ambien) 5 mg HSPRN PRN ORAL Insomnia 04/11/18 21:00 04/18/18 20:59 04/12/18 20:28 Assessment/Plan Problem List: (1) Altered level of consciousness ICD Codes: R40.4 - Transient alteration of awareness SNOMED: 5491292 (2) Pyuria ICD Codes: N39.0 - Urinary tract infection, site not specified SNOMED: 4289465, 712691376 (3) Schizoaffective disorder, bipolar type ICD Codes: F25.0 - Schizoaffective disorder, bipolar type SNOMED: 90357955 (4) Delirium ICD Codes: R41.0 - Disorientation, unspecified SNOMED: 8580709 (5) Seizure disorder ICD Codes: G40.909 - Epilepsy, unspecified, not intractable, without status epilepticus SNOMED: 935152105 Assessment/Plan symptomatic treatment psych therapy check urine cultures abx as per ID dvt prophylaxis dc planning Luciano Mcdonald MD Apr 13, 2018 12:30
--- NOTE | 2018-04-13 14:15 | General Progress Note ---
Assessment/Plan Problem List: (1) Anemia ICD Codes: D64.9 - Anemia, unspecified SNOMED: 891335323 (2) Delirium ICD Codes: R41.0 - Disorientation, unspecified SNOMED: 3932138 (3) Schizoaffective disorder, bipolar type ICD Codes: F25.0 - Schizoaffective disorder, bipolar type SNOMED: 71997097 (4) Violent behavior ICD Codes: R45.6 - Violent behavior SNOMED: 139062915 Status: stable, progressing Assessment/Plan ot pt diet psyc tx /transfer cbc bmp am Subjective Constitutional: Reports: weakness Allergies: Coded Allergies: No Known Allergies (Unverified , 04/11/18) All Systems: reviewed and negative except above Subjective calm in wc confused Objective Last 24 Hour Vital Signs Date Time Temp Pulse Resp B/P (MAP) Pulse Ox O2 Delivery O2 Flow Rate FiO2 04/13/18 12:00 97.2 72 18 118/87 (97) 100 04/13/18 09:00 Room Air 04/13/18 08:00 97.7 67 18 120/76 (91) 98 04/13/18 04:08 98.1 69 19 137/71 (93) 97 04/12/18 20:12 Room Air 04/12/18 20:00 98.3 73 19 141/64 (89) 98 04/12/18 16:00 98.1 72 19 118/79 (92) 98 Intake and Output 04/12/18 04/13/18 19:00 07:00 Intake Total 1314 ml 600 ml Balance 1314 ml 600 ml Intake Oral 1314 ml 600 ml # Voids 6 5 # Bowel Movements 1 Laboratory Tests 04/13/18 05:35: White Blood Count 7.4, Red Blood Count 4.70, Hemoglobin 13.9L, Hematocrit 40.3L , Mean Corpuscular Volume 86, Mean Corpuscular Hemoglobin 29.6, Mean Corpuscular Hemoglobin Concent 34.6, Red Cell Distribution Width 11.0L, Platelet Count 269, Mean Platelet Volume 6.1L, Neutrophils (%) (Auto) 52.5, Lymphocytes (%) (Auto) 35.8, Monocytes (%) (Auto) 7.5, Eosinophils (%) (Auto) 3.6H, Basophils (%) (Auto) 0.6, Sodium Level 136, Potassium Level 3.9, Chloride Level 103, Carbon Dioxide Level 24, Anion Gap 10, Blood Urea Nitrogen 3L, Creatinine 0.8, Estimat Glomerular Filtration Rate > 60, Glucose Level 120H, Calcium Level 9.5 Height (Feet): 5 Height (Inches): 8.00 Weight (Pounds): 203 General Appearance: lethargic EENT: normal ENT inspection Neck: normal alignment Cardiovascular: normal peripheral pulses, normal rate, regular rhythm Respiratory/Chest: chest wall non-tender, lungs clear, normal breath sounds Abdomen: normal bowel sounds, non tender, soft Extremities: normal inspection Edema: no edema noted Arm (L), no edema noted Arm (R), no edema noted Leg (L), no edema noted Leg (R), no edema noted Pedal (L), no edema noted Pedal (R), no edema noted Generalized Neurologic: motor weakness Skin: normal pigmentation, warm/dry Jareth Branch DO Apr 13, 2018 14:15
--- NOTE | 2018-04-13 15:30 | Consultation ---
DATE OF CONSULTATION: 04/11/2018 NOTE: POOR AUDIO PSYCHOTHERAPY CONSULTATION PROGRESS NOTE CONSULTING PHYSICIAN: Cornell Morrow PsyD. TREATING ATTENDING PHYSICIAN: . HISTORY OF PRESENT ILLNESS: The patient is a 48-year-old male patient. The patient is from [facility]. The patient was placed on a 5150 hold due to others and staff. The patient has history of schizophrenia and for these reasons, he was admitted to the hospital, and he was also banging his head on wolfe and is incoherent. Clinician assessed this patient. The patient continues to mumble to himself, ramble. His thoughts are disorganized, scattered lethargic, unable to focus and concentrate. He is a poor historian. The patient has been assaulting staff, aggressive, agitated, confused, disorganized, helpless, and anxious. At this time, he continues to be lethargic and unable to focus and concentrate, unable to care for his basic needs. When the patient is cleared, the patient is recommended to discharge to psychiatric facility to continue . PAST MEDICAL HISTORY: Includes history of epilepsy and cerebral palsy. ALLERGIES: The patient has no known drug allergies. SUBSTANCE ABUSE HISTORY: The patient has no history of alcohol use or illicit drug use. PAST PSYCHIATRIC HISTORY: The patient has history of schizophrenia. SOCIAL HISTORY: The patient is a 48-year-old male patient who is , financially supported by [employer]. MENTAL STATUS EXAMINATION: The patient is alert and oriented to person. Mood is irritable. Affect is labile. Thought process is disorganized. Thought content is paranoid. The patient continues to have poor attention and concentration. Poor insight and judgement and impulse control. DIAGNOSIS: Paranoid schizophrenia. PLAN: Assessed this patient, provided the patient with reality orientation. oriented to person, place, time, and situation cognitive behavior; however, the patient is extremely delusional and continues to . Transfer the patient to psychiatric hospital. The patient is on 5150 hold . This clinician has reviewed the patient's chart and discussed the treatment with treatment team. Cornell Morrow PsyD. DR: Dariela JOB#: [id number] CC:
[2018-04-13 16:00] VITALS: BP 129/88
[2018-04-13] MEDS ORDERED: LORazepam Inj 2mg/ml 1ml IM SCH (18:15)
[2018-04-13] MEDS ORDERED: DiphenhydrAMINE 50mg/ml Inj IM SCH (18:15)
[2018-04-13] MEDS ORDERED: Haloperidol 5mg/ml Inj IM SCH (18:15)
[2018-04-13 20:00] VITALS: BP 102/66
[2018-04-14] VITALS (8 sets, daily range): BP systolic 95–118; BP diastolic 55–77
[2018-04-14 07:37] LABS: BASOPHILS % (AUTO) 0.9 % (0.0-2.0); EOSINOPHILS % (AUTO) 3.8 % (0.0-3.0); HEMATOCRIT 37.8 % (42.0-52.0); LYMPHOCYTES % (AUTO) 39.7 % (20.0-45.0); MEAN CORPUSCULAR VOLUME 85 FL (80-99); MONOCYTES % (AUTO) 9.8 % (1.0-10.0); NEUTROPHILS % (AUTO) 45.8 % (45.0-75.0); PLATELET COUNT 251 K/UL (150-450); RED BLOOD COUNT 4.44 M/UL (4.70-6.10); WHITE BLOOD COUNT 6.3 K/UL (4.8-10.8)
[2018-04-14] MEDS: LORazepam 0.5mg tab ORAL PRN (07:51)
[2018-04-14 07:54] LABS: ALANINE AMINOTRANSFERASE 25 U/L (12-78); ALBUMIN 3.7 G/DL (3.4-5.0); ALKALINE PHOSPHATASE 51 U/L (46-116); ANION GAP 10 mmol/L (5-15); ASPARTATE AMINO TRANSFERASE 26 U/L (15-37); BILIRUBIN,TOTAL 0.3 MG/DL (0.2-1.0); BLOOD UREA NITROGEN 8 mg/dL (7-18); CARBON DIOXIDE 22 MMOL/L (21-32); CHLORIDE 108 MMOL/L (98-107); CREATININE 0.9 MG/DL (0.55-1.30); PHOSPHORUS 4.4 MG/DL (2.5-4.9); SODIUM 140 MMOL/L (136-145)
[2018-04-14] MEDS: Topiramate 100mg tab ORAL SCH ×2 (08:57→18:42)
[2018-04-14] MEDS ORDERED: DiphenhydrAMINE 50mg/ml Inj IM SCH (09:45)
[2018-04-14] MEDS ORDERED: LORazepam Inj 2mg/ml 1ml IM SCH (09:45)
[2018-04-14] MEDS ORDERED: Haloperidol 5mg/ml Inj IM SCH (09:45)
--- NOTE | 2018-04-14 10:14 | Infectious Diseases Prog Note ---
Assessment/Plan Assessment/Plan ASSESSMENT: 1. Worsening of mental status compared to the baseline, it appears that the patient has some improvement during this stay. -CT brain: No evidence of acute intracranial hemorrhage. 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 2. No evidence of infectious process at this time (normal white blood cells, afebrile, no tachycardia or hypertension). -u/a neg, ucx E.coli (colonizer) -Bcx NTD -CXR: no acute diseae -Bipolar disorder. -History of cerebral palsy. -History of seizure disorder. PLAN: 1. We will monitor the patient off of antibiotics at this point. 2. f/u cultures (blood). 3. We will monitor the patient's laboratories, cultures. 4. If the patient's medical condition worsens due to significant infection based on laboratories, we will start the patient on antibiotic treatment. Subjective Allergies: Coded Allergies: No Known Allergies (Unverified , 04/11/18) Subjective afebrile no leukocytosis off abx Bcx NTD Objective Vital Signs Last 24 Hour Vital Signs Date Time Temp Pulse Resp B/P (MAP) Pulse Ox O2 Delivery O2 Flow Rate FiO2 04/14/18 08:00 97.0 66 18 118/62 (80) 96 04/14/18 04:00 97.5 62 17 95/56 (69) 04/14/18 00:00 97.7 63 17 104/55 (71) 04/13/18 21:00 Room Air 04/13/18 20:00 97.3 69 16 102/66 (78) 04/13/18 16:00 97.3 78 18 129/88 (102) 78 04/13/18 12:00 97.2 72 18 118/87 (97) 100 Height (Feet): 5 Height (Inches): 8.00 Weight (Pounds): 203 Objective HEENT: No pale conjunctivae. No icterus. NECK: No lymphadenopathy. CHEST: Clear. HEART: S1 and S2. ABDOMEN: Soft, nontender. EXTREMITIES: No cyanosis at this time. NEUROLOGIC: Awake, appears to be confused. Microbiology Date/Time Source Procedure Growth Status 04/11/18 13:25 Blood Blood Culture - Preliminary NO GROWTH AFTER 48 HOURS Resulted 04/11/18 13:10 Blood Blood Culture - Preliminary NO GROWTH AFTER 48 HOURS Resulted 04/11/18 16:50 Nasal Nares MRSA Culture - Final NO METHICILLIN RESISTANT STAPH AUREUS... Complete 04/11/18 16:50 Rectum VRE Culture - Final NO VANCOMYCIN RESISTANT ENTEROCOCCUS ... Complete Laboratory Tests Test 04/14/18 07:26 White Blood Count 6.3 K/UL (4.8-10.8) Red Blood Count 4.44 M/UL (4.70-6.10) L Hemoglobin 13.0 G/DL (14.2-18.0) L Hematocrit 37.8 % (42.0-52.0) L Mean Corpuscular Volume 85 FL (80-99) Mean Corpuscular Hemoglobin 29.3 PG (27.0-31.0) Mean Corpuscular Hemoglobin Concent 34.5 G/DL (32.0-36.0) Red Cell Distribution Width 11.0 % (11.6-14.8) L Platelet Count 251 K/UL (150-450) Mean Platelet Volume 5.8 FL (6.5-10.1) L Neutrophils (%) (Auto) 45.8 % (45.0-75.0) Lymphocytes (%) (Auto) 39.7 % (20.0-45.0) Monocytes (%) (Auto) 9.8 % (1.0-10.0) Eosinophils (%) (Auto) 3.8 % (0.0-3.0) H Basophils (%) (Auto) 0.9 % (0.0-2.0) Sodium Level 140 MMOL/L (136-145) Potassium Level 4.0 MMOL/L (3.5-5.1) Chloride Level 108 MMOL/L (98-107) H Carbon Dioxide Level 22 MMOL/L (21-32) Anion Gap 10 mmol/L (5-15) Blood Urea Nitrogen 8 mg/dL (7-18) Creatinine 0.9 MG/DL (0.55-1.30) Estimat Glomerular Filtration Rate > 60 mL/min (>60) Glucose Level 102 MG/DL (74-106) Calcium Level 9.0 MG/DL (8.5-10.1) Phosphorus Level 4.4 MG/DL (2.5-4.9) Magnesium Level 1.7 MG/DL (1.8-2.4) L Total Bilirubin 0.3 MG/DL (0.2-1.0) Aspartate Amino Transf (AST/SGOT) 26 U/L (15-37) Alanine Aminotransferase (ALT/SGPT) 25 U/L (12-78) Alkaline Phosphatase 51 U/L (46-116) Total Protein 7.3 G/DL (6.4-8.2) Albumin 3.7 G/DL (3.4-5.0) Globulin 3.6 g/dL Albumin/Globulin Ratio 1.0 (1.0-2.7) Current Medications Medications (Trade) Dose Ordered Sig/Con Route PRN Reason Start Time Stop Time Status Last Admin Dose Admin Acetaminophen (Tylenol) 650 mg Q4H PRN ORAL T>100.5 04/11/18 12:45 05/11/18 12:44 Acetaminophen/ Hydrocodone Bitart ([place] 5/325) 1 tab Q6H PRN ORAL PAIN 4-10 04/11/18 12:45 04/18/18 12:44 Al Hydroxide/Mg Hydroxide (Mylanta II) 30 ml Q6H PRN ORAL dyspepsia 04/11/18 12:45 05/11/18 12:44 Dextrose (Dextrose 50%) 25 ml Q30M PRN IV Hypoglycemia 04/11/18 13:00 05/11/18 12:48 Dextrose (Dextrose 50%) 50 ml Q30M PRN IV hypoglycemia 04/11/18 13:00 05/11/18 12:59 Diphenhydramine HCl (Benadryl) 25 mg ONCE IM 04/14/18 09:45 04/14/18 10:45 04/14/18 09:53 Haloperidol Lactate (Haldol) 10 mg ONCE IM 04/14/18 09:45 04/14/18 10:45 04/14/18 09:53 Levetiracetam (Keppra) 1,000 mg Q12HR ORAL 04/11/18 21:00 05/11/18 20:59 04/14/18 08:57 Lorazepam (Ativan 2mg/ml 1ml) 2 mg ONCE IM 04/14/18 09:45 04/14/18 10:45 12/11/18 09:53 Lorazepam (Ativan) 0.5 mg Q4H PRN ORAL For Anxiety 04/12/18 16:30 04/19/18 16:29 04/14/18 07:51 Morphine Sulfate (Morphine Sulfate) 1 mg Q4H PRN IVP Severe Pain (Pain Scale 7-10) 04/11/18 12:45 04/18/18 12:44 Ondansetron HCl (Zofran) 4 mg Q6H PRN ORAL Nausea & Vomiting 04/13/18 10:15 05/13/18 10:14 04/13/18 10:41 Polyethylene Glycol (Miralax) 17 gm HSPRN PRN ORAL Constipation 04/11/18 12:45 05/11/18 12:44 Risperidone (RisperDAL) 1 mg QHS ORAL 04/11/18 21:00 05/11/18 20:59 04/13/18 21:12 Topiramate (Topamax) 100 mg TWICE A DAY ORAL 04/11/18 18:00 05/11/18 17:59 04/14/18 08:57 Zolpidem Tartrate (Ambien) 5 mg HSPRN PRN ORAL Insomnia 04/11/18 21:00 04/18/18 20:59 04/12/18 20:28 Tressa Sanchez M.D. Apr 14, 2018 10:14
--- NOTE | 2018-04-14 11:57 | Pulmonology Progress Note ---
Assessment/Plan Problems: (1) Altered level of consciousness (2) Pyuria (3) Schizoaffective disorder, bipolar type (4) Delirium (5) Seizure disorder Assessment/Plan doing better f/u cultures ID recommendation appreciated seizure precaution dvt prophylaxis Subjective ROS Limited/Unobtainable: No Constitutional: Reports: no symptoms Allergies: Coded Allergies: No Known Allergies (Unverified , 04/11/18) Objective Last 24 Hour Vital Signs Date Time Temp Pulse Resp B/P (MAP) Pulse Ox O2 Delivery O2 Flow Rate FiO2 04/14/18 09:00 Room Air 04/14/18 08:00 97.0 66 18 118/62 (80) 96 04/14/18 04:00 97.5 62 17 95/56 (69) 04/14/18 00:00 97.7 63 17 104/55 (71) 04/13/18 21:00 Room Air 04/13/18 20:00 97.3 69 16 102/66 (78) 04/13/18 16:00 97.3 78 18 129/88 (102) 78 04/13/18 12:00 97.2 72 18 118/87 (97) 100 Intake and Output 04/13/18 04/14/18 19:00 07:00 Intake Total 1980 ml Output Total 1475 ml Balance 505 ml Intake Oral 1980 ml Output Urine Total 1125 ml Stool Total 350 ml # Voids 6 # Bowel Movements 2 General Appearance: WD/WN HEENT: normocephalic, atraumatic Respiratory/Chest: chest wall non-tender, lungs clear Cardiovascular: normal peripheral pulses, normal rate Abdomen: normal bowel sounds, soft, non tender Genitourinary: normal external genitalia Skin: no rash Neurologic/Psychiatric: technical account manager II-XII grossly normal Microbiology Date/Time Source Procedure Growth Status 04/11/18 13:25 Blood Blood Culture - Preliminary NO GROWTH AFTER 48 HOURS Resulted 04/11/18 13:10 Blood Blood Culture - Preliminary NO GROWTH AFTER 48 HOURS Resulted 04/11/18 16:50 Nasal Nares MRSA Culture - Final NO METHICILLIN RESISTANT STAPH AUREUS... Complete 04/11/18 16:50 Rectum VRE Culture - Final NO VANCOMYCIN RESISTANT ENTEROCOCCUS ... Complete Laboratory Tests 04/14/18 07:26: White Blood Count 6.3, Red Blood Count 4.44L, Hemoglobin 13.0L, Hematocrit 37.8L , Mean Corpuscular Volume 85, Mean Corpuscular Hemoglobin 29.3, Mean Corpuscular Hemoglobin Concent 34.5, Red Cell Distribution Width 11.0L, Platelet Count 251, Mean Platelet Volume 5.8L, Neutrophils (%) (Auto) 45.8, Lymphocytes (%) (Auto) 39.7, Monocytes (%) (Auto) 9.8, Eosinophils (%) (Auto) 3.8H, Basophils (%) (Auto) 0.9, Sodium Level 140, Potassium Level 4.0, Chloride Level 108H, Carbon Dioxide Level 22, Anion Gap 10, Blood Urea Nitrogen 8, Creatinine 0.9, Estimat Glomerular Filtration Rate > 60, Glucose Level 102, Calcium Level 9.0, Phosphorus Level 4.4, Magnesium Level 1.7L, Total Bilirubin 0.3, Aspartate Amino Transf (AST/SGOT) 26, Alanine Aminotransferase (ALT/SGPT) 25, Alkaline Phosphatase 51, Total Protein 7.3, Albumin 3.7, Globulin 3.6, Albumin/Globulin Ratio 1.0 Current Medications Medications (Trade) Dose Ordered Sig/Con Route PRN Reason Start Time Stop Time Status Last Admin Dose Admin Acetaminophen (Tylenol) 650 mg Q4H PRN ORAL T>100.5 04/11/18 12:45 05/11/18 12:44 Acetaminophen/ Hydrocodone Bitart ([place] 5/325) 1 tab Q6H PRN ORAL PAIN 4-10 04/11/18 12:45 04/18/18 12:44 Al Hydroxide/Mg Hydroxide (Mylanta II) 30 ml Q6H PRN ORAL dyspepsia 04/11/18 12:45 05/11/18 12:44 Dextrose (Dextrose 50%) 25 ml Q30M PRN IV Hypoglycemia 04/11/18 13:00 05/11/18 12:48 Dextrose (Dextrose 50%) 50 ml Q30M PRN IV hypoglycemia 04/11/18 13:00 05/11/18 12:59 Levetiracetam (Keppra) 1,000 mg Q12HR ORAL 04/11/18 21:00 05/11/18 20:59 04/14/18 08:57 Lorazepam (Ativan) 0.5 mg Q4H PRN ORAL For Anxiety 04/12/18 16:30 04/19/18 16:29 12/11/18 07:51 Morphine Sulfate (Morphine Sulfate) 1 mg Q4H PRN IVP Severe Pain (Pain Scale 7-10) 04/11/18 12:45 04/18/18 12:44 Ondansetron HCl (Zofran) 4 mg Q6H PRN ORAL Nausea & Vomiting 04/13/18 10:15 05/13/18 10:14 04/13/18 10:41 Polyethylene Glycol (Miralax) 17 gm HSPRN PRN ORAL Constipation 04/11/18 12:45 05/11/18 12:44 Risperidone (RisperDAL) 1 mg QHS ORAL 04/11/18 21:00 05/11/18 20:59 04/13/18 21:12 Topiramate (Topamax) 100 mg TWICE A DAY ORAL 04/11/18 18:00 05/11/18 17:59 04/14/18 08:57 Zolpidem Tartrate (Ambien) 5 mg HSPRN PRN ORAL Insomnia 04/11/18 21:00 04/18/18 20:59 04/12/18 20:28 Luciano Mcdonald MD Apr 14, 2018 11:57
--- NOTE | 2018-04-14 15:08 | General Progress Note ---
Assessment/Plan Problem List: (1) Anemia ICD Codes: D64.9 - Anemia, unspecified SNOMED: 672751297 (2) Delirium ICD Codes: R41.0 - Disorientation, unspecified SNOMED: 0997300 (3) Schizoaffective disorder, bipolar type ICD Codes: F25.0 - Schizoaffective disorder, bipolar type SNOMED: 51491899 (4) Violent behavior ICD Codes: R45.6 - Violent behavior SNOMED: 129122225 Status: unchanged Assessment/Plan ot pt diet psyc tx /transfer Subjective Constitutional: Reports: weakness Allergies: Coded Allergies: No Known Allergies (Unverified , 04/11/18) All Systems: reviewed and negative except above Subjective in wc confused Objective Last 24 Hour Vital Signs Date Time Temp Pulse Resp B/P (MAP) Pulse Ox O2 Delivery O2 Flow Rate FiO2 04/14/18 12:00 97.5 66 18 117/77 (90) 96 04/14/18 09:00 Room Air 04/14/18 08:00 97.0 66 18 118/62 (80) 96 04/14/18 04:00 97.5 62 17 95/56 (69) 04/14/18 00:00 97.7 63 17 104/55 (71) 04/13/18 21:00 Room Air 04/13/18 20:00 97.3 69 16 102/66 (78) 04/13/18 16:00 97.3 78 18 129/88 (102) 78 Intake and Output 04/13/18 04/14/18 19:00 07:00 Intake Total 1980 ml Output Total 1475 ml Balance 505 ml Intake Oral 1980 ml Output Urine Total 1125 ml Stool Total 350 ml # Voids 6 # Bowel Movements 2 Laboratory Tests 04/14/18 07:26: White Blood Count 6.3, Red Blood Count 4.44L, Hemoglobin 13.0L, Hematocrit 37.8L , Mean Corpuscular Volume 85, Mean Corpuscular Hemoglobin 29.3, Mean Corpuscular Hemoglobin Concent 34.5, Red Cell Distribution Width 11.0L, Platelet Count 251, Mean Platelet Volume 5.8L, Neutrophils (%) (Auto) 45.8, Lymphocytes (%) (Auto) 39.7, Monocytes (%) (Auto) 9.8, Eosinophils (%) (Auto) 3.8H, Basophils (%) (Auto) 0.9, Sodium Level 140, Potassium Level 4.0, Chloride Level 108H, Carbon Dioxide Level 22, Anion Gap 10, Blood Urea Nitrogen 8, Creatinine 0.9, Estimat Glomerular Filtration Rate > 60, Glucose Level 102, Calcium Level 9.0, Phosphorus Level 4.4, Magnesium Level 1.7L, Total Bilirubin 0.3, Aspartate Amino Transf (AST/SGOT) 26, Alanine Aminotransferase (ALT/SGPT) 25, Alkaline Phosphatase 51, Total Protein 7.3, Albumin 3.7, Globulin 3.6, Albumin/Globulin Ratio 1.0 Height (Feet): 5 Height (Inches): 8.00 Weight (Pounds): 203 General Appearance: confused EENT: normal ENT inspection Neck: normal alignment Cardiovascular: normal peripheral pulses, normal rate, regular rhythm Respiratory/Chest: chest wall non-tender, lungs clear, normal breath sounds Abdomen: normal bowel sounds, non tender, soft Extremities: normal inspection Edema: no edema noted Arm (L), no edema noted Arm (R), no edema noted Leg (L), no edema noted Leg (R), no edema noted Pedal (L), no edema noted Pedal (R), no edema noted Generalized Neurologic: motor weakness Skin: normal pigmentation, warm/dry Jareth Branch DO Apr 14, 2018 15:08
[2018-04-14] MEDS: LORazepam Inj 2mg/ml 1ml IM PRN (15:14)
[2018-04-14] MEDS: Zolpidem 5mg tab ORAL PRN (21:04)
[2018-04-15] VITALS: BP 130/77
[2018-04-15] MEDS: LORazepam Inj 2mg/ml 1ml IM PRN ×3 (03:25→20:54)
[2018-04-15 04:00] VITALS: BP 120/74
[2018-04-15 06:01] LABS: BASOPHILS % (AUTO) 0.6 % (0.0-2.0); EOSINOPHILS % (AUTO) 1.3 % (0.0-3.0); HEMATOCRIT 38.1 % (42.0-52.0); LYMPHOCYTES % (AUTO) 29.4 % (20.0-45.0); MEAN CORPUSCULAR VOLUME 85 FL (80-99); MONOCYTES % (AUTO) 7.3 % (1.0-10.0); NEUTROPHILS % (AUTO) 61.5 % (45.0-75.0); PLATELET COUNT 265 K/UL (150-450); RED BLOOD COUNT 4.46 M/UL (4.70-6.10); WHITE BLOOD COUNT 7.3 K/UL (4.8-10.8)
[2018-04-15 06:21] LABS: ALANINE AMINOTRANSFERASE 28 U/L (12-78); ALKALINE PHOSPHATASE 53 U/L (46-116); ANION GAP 12 mmol/L (5-15); ASPARTATE AMINO TRANSFERASE 46 U/L (15-37); BILIRUBIN,TOTAL 0.2 MG/DL (0.2-1.0); BLOOD UREA NITROGEN 12 mg/dL (7-18); CARBON DIOXIDE 20 MMOL/L (21-32); CHLORIDE 107 MMOL/L (98-107); CREATININE 0.7 MG/DL (0.55-1.30); PHOSPHORUS 3.4 MG/DL (2.5-4.9); POTASSIUM 3.8 MMOL/L (3.5-5.1); SODIUM 139 MMOL/L (136-145)
[2018-04-15] MEDS ORDERED: Haloperidol 5mg/ml Inj IM SCH (06:45)
[2018-04-15] MEDS ORDERED: LORazepam Inj 2mg/ml 1ml IM SCH (06:45)
[2018-04-15] MEDS ORDERED: DiphenhydrAMINE 50mg/ml Inj IM SCH (06:45)
[2018-04-15 08:06] VITALS: BP 131/77
[2018-04-15] MEDS: Topiramate 100mg tab ORAL SCH ×2 (09:16→17:00)
[2018-04-15] MEDS ORDERED: NovoLOG Insulin Flexpen SUBQ SCH (11:30)
[2018-04-15 12:10] VITALS: BP 117/67
--- NOTE | 2018-04-15 12:20 | General Progress Note ---
Assessment/Plan Problem List: (1) Anemia ICD Codes: D64.9 - Anemia, unspecified SNOMED: 137622970 (2) Delirium ICD Codes: R41.0 - Disorientation, unspecified SNOMED: 6398881 (3) Schizoaffective disorder, bipolar type ICD Codes: F25.0 - Schizoaffective disorder, bipolar type SNOMED: 57386593 (4) Violent behavior ICD Codes: R45.6 - Violent behavior SNOMED: 106329902 Status: stable, progressing Assessment/Plan ot pt diet cbc bmp am psyc tx /transfer Subjective Constitutional: Reports: weakness Allergies: Coded Allergies: No Known Allergies (Unverified , 04/11/18) All Systems: reviewed and negative except above Subjective in wc confused Objective Last 24 Hour Vital Signs Date Time Temp Pulse Resp B/P (MAP) Pulse Ox O2 Delivery O2 Flow Rate FiO2 04/15/18 12:10 99.0 74 20 117/67 (84) 99 04/15/18 08:06 98.2 98 20 131/77 (95) 99 04/15/18 08:02 Room Air 04/15/18 04:00 98.0 78 20 120/74 (89) 98 04/15/18 00:00 98.2 84 20 130/77 (94) 98 04/14/18 21:14 Room Air 04/14/18 20:01 97.7 77 18 117/74 (88) 97 04/14/18 16:00 97.5 75 18 107/71 (83) 96 Intake and Output 04/14/18 04/15/18 19:00 07:00 Intake Total 360 ml 2000 ml Output Total 400 ml 900 ml Balance -40 ml 1100 ml Intake Oral 360 ml 2000 ml Output Urine Total 400 ml 900 ml # Voids 2 5 Laboratory Tests 04/15/18 05:12: White Blood Count 7.3, Red Blood Count 4.46L, Hemoglobin 13.0L, Hematocrit 38.1L , Mean Corpuscular Volume 85, Mean Corpuscular Hemoglobin 29.2, Mean Corpuscular Hemoglobin Concent 34.2, Red Cell Distribution Width 11.0L, Platelet Count 265, Mean Platelet Volume 6.1L, Neutrophils (%) (Auto) 61.5, Lymphocytes (%) (Auto) 29.4, Monocytes (%) (Auto) 7.3, Eosinophils (%) (Auto) 1.3, Basophils (%) (Auto) 0.6, Sodium Level 139, Potassium Level 3.8, Chloride Level 107, Carbon Dioxide Level 20L, Anion Gap 12, Blood Urea Nitrogen 12, Creatinine 0.7, Estimat Glomerular Filtration Rate > 60, Glucose Level 107H, Calcium Level 9.0, Phosphorus Level 3.4, Magnesium Level 1.7L, Total Bilirubin 0.2, Aspartate Amino Transf (AST/SGOT) 46H, Alanine Aminotransferase (ALT/SGPT) 28, Alkaline Phosphatase 53, Total Protein 7.9, Albumin 4.0, Globulin 3.9, Albumin/Globulin Ratio 1.0 Height (Feet): 5 Height (Inches): 8.00 Weight (Pounds): 190 General Appearance: lethargic, confused EENT: normal ENT inspection Neck: normal alignment Cardiovascular: normal peripheral pulses, normal rate, regular rhythm Respiratory/Chest: chest wall non-tender, lungs clear, normal breath sounds Abdomen: normal bowel sounds, non tender, soft Extremities: normal inspection Edema: no edema noted Arm (L), no edema noted Arm (R), no edema noted Leg (L), no edema noted Leg (R), no edema noted Pedal (L), no edema noted Pedal (R), no edema noted Generalized Neurologic: motor weakness Skin: normal pigmentation, warm/dry Jareth Branch DO Apr 15, 2018 12:20
--- NOTE | 2018-04-15 13:08 | Pulmonology Progress Note ---
Assessment/Plan Problems: (1) Altered level of consciousness (2) Pyuria (3) Schizoaffective disorder, bipolar type (4) Delirium (5) Seizure disorder Assessment/Plan doing better f/u cultures seizure precaution dvt prophylaxis Subjective ROS Limited/Unobtainable: No Constitutional: Reports: no symptoms HEENT: Repors: no symptoms Respiratory: Reports: no symptoms Allergies: Coded Allergies: No Known Allergies (Unverified , 04/11/18) Objective Last 24 Hour Vital Signs Date Time Temp Pulse Resp B/P (MAP) Pulse Ox O2 Delivery O2 Flow Rate FiO2 04/15/18 12:10 99.0 74 20 117/67 (84) 99 04/15/18 08:06 98.2 98 20 131/77 (95) 99 04/15/18 08:02 Room Air 04/15/18 04:00 98.0 78 20 120/74 (89) 98 04/15/18 00:00 98.2 84 20 130/77 (94) 98 04/14/18 21:14 Room Air 04/14/18 20:01 97.7 77 18 117/74 (88) 97 04/14/18 16:00 97.5 75 18 107/71 (83) 96 Intake and Output 04/14/18 04/15/18 19:00 07:00 Intake Total 360 ml 2000 ml Output Total 400 ml 900 ml Balance -40 ml 1100 ml Intake Oral 360 ml 2000 ml Output Urine Total 400 ml 900 ml # Voids 2 5 General Appearance: WD/WN, no acute distress HEENT: normocephalic, atraumatic Respiratory/Chest: chest wall non-tender, lungs clear Cardiovascular: normal peripheral pulses, normal rate Laboratory Tests 04/15/18 05:12: White Blood Count 7.3, Red Blood Count 4.46L, Hemoglobin 13.0L, Hematocrit 38.1L , Mean Corpuscular Volume 85, Mean Corpuscular Hemoglobin 29.2, Mean Corpuscular Hemoglobin Concent 34.2, Red Cell Distribution Width 11.0L, Platelet Count 265, Mean Platelet Volume 6.1L, Neutrophils (%) (Auto) 61.5, Lymphocytes (%) (Auto) 29.4, Monocytes (%) (Auto) 7.3, Eosinophils (%) (Auto) 1.3, Basophils (%) (Auto) 0.6, Sodium Level 139, Potassium Level 3.8, Chloride Level 107, Carbon Dioxide Level 20L, Anion Gap 12, Blood Urea Nitrogen 12, Creatinine 0.7, Estimat Glomerular Filtration Rate > 60, Glucose Level 107H, Calcium Level 9.0, Phosphorus Level 3.4, Magnesium Level 1.7L, Total Bilirubin 0.2, Aspartate Amino Transf (AST/SGOT) 46H, Alanine Aminotransferase (ALT/SGPT) 28, Alkaline Phosphatase 53, Total Protein 7.9, Albumin 4.0, Globulin 3.9, Albumin/Globulin Ratio 1.0 Current Medications Medications (Trade) Dose Ordered Sig/Con Route PRN Reason Start Time Stop Time Status Last Admin Dose Admin Acetaminophen (Tylenol) 650 mg Q4H PRN ORAL T>100.5 04/11/18 12:45 05/11/18 12:44 Acetaminophen/ Hydrocodone Bitart ([place] 5/325) 1 tab Q6H PRN ORAL PAIN 4-10 04/11/18 12:45 04/18/18 12:44 Al Hydroxide/Mg Hydroxide (Mylanta II) 30 ml Q6H PRN ORAL dyspepsia 04/11/18 12:45 05/11/18 12:44 Dextrose (Dextrose 50%) 25 ml Q30M PRN IV Hypoglycemia 04/11/18 13:00 05/11/18 12:48 Dextrose (Dextrose 50%) 50 ml Q30M PRN IV hypoglycemia 04/11/18 13:00 05/11/18 12:59 Levetiracetam (Keppra) 1,000 mg Q12HR ORAL 04/11/18 21:00 05/11/18 20:59 04/15/18 09:16 Lorazepam (Ativan 2mg/ml 1ml) 1 mg Q6H PRN IM Agitation 04/14/18 15:00 04/21/18 14:59 04/15/18 03:25 Lorazepam (Ativan) 0.5 mg Q4H PRN ORAL For Anxiety 04/12/18 16:30 04/19/18 16:29 04/14/18 07:51 Morphine Sulfate (Morphine Sulfate) 1 mg Q4H PRN IVP Severe Pain (Pain Scale 7-10) 04/11/18 12:45 04/18/18 12:44 Ondansetron HCl (Zofran) 4 mg Q6H PRN ORAL Nausea & Vomiting 04/13/18 10:15 05/13/18 10:14 04/13/18 10:41 Polyethylene Glycol (Miralax) 17 gm HSPRN PRN ORAL Constipation 04/11/18 12:45 05/11/18 12:44 Risperidone (RisperDAL) 1 mg QHS ORAL 04/11/18 21:00 05/11/18 20:59 04/14/18 20:32 Topiramate (Topamax) 100 mg TWICE A DAY ORAL 04/11/18 18:00 05/11/18 17:59 04/15/18 09:16 Zolpidem Tartrate (Ambien) 5 mg HSPRN PRN ORAL Insomnia 04/11/18 21:00 04/18/18 20:59 04/14/18 21:04 Luciano Mcdonald MD Apr 15, 2018 13:08
[2018-04-15 15:43] VITALS: BP 152/96
--- NOTE | 2018-04-15 18:09 | Infectious Diseases Prog Note ---
Assessment/Plan Assessment/Plan ASSESSMENT: 1. Worsening of mental status compared to the baseline, it appears that the patient has some improvement during this stay. -CT brain: No evidence of acute intracranial hemorrhage. 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 2. No evidence of infectious process at this time (normal white blood cells, afebrile, no tachycardia or hypertension). -u/a neg, ucx E.coli (colonizer) -Bcx NTD -CXR: no acute diseae -Bipolar disorder. -History of cerebral palsy. -History of seizure disorder. PLAN: 1. We will monitor the patient off of antibiotics at this point. 2. f/u cultures (blood). 3. We will monitor the patient's laboratories, cultures. 4. If the patient's medical condition worsens due to significant infection based on laboratories, we will start the patient on antibiotic treatment. Subjective Allergies: Coded Allergies: No Known Allergies (Unverified , 04/11/18) Subjective afebrile no leukocytosis off abx Bcx NTD Objective Vital Signs Last 24 Hour Vital Signs Date Time Temp Pulse Resp B/P (MAP) Pulse Ox O2 Delivery O2 Flow Rate FiO2 04/15/18 15:43 98.1 97 20 152/96 (114) 98 04/15/18 12:10 99.0 74 20 117/67 (84) 99 04/15/18 08:06 98.2 98 20 131/77 (95) 99 04/15/18 08:02 Room Air 04/15/18 04:00 98.0 78 20 120/74 (89) 98 04/15/18 00:00 98.2 84 20 130/77 (94) 98 04/14/18 21:14 Room Air 04/14/18 20:01 97.7 77 18 117/74 (88) 97 Height (Feet): 5 Height (Inches): 8.00 Weight (Pounds): 190 Objective HEENT: No pale conjunctivae. No icterus. NECK: No lymphadenopathy. CHEST: Clear. HEART: S1 and S2. ABDOMEN: Soft, nontender. EXTREMITIES: No cyanosis at this time. NEUROLOGIC: Awake, appears to be confused. Laboratory Tests Test 04/15/18 05:12 White Blood Count 7.3 K/UL (4.8-10.8) Red Blood Count 4.46 M/UL (4.70-6.10) L Hemoglobin 13.0 G/DL (14.2-18.0) L Hematocrit 38.1 % (42.0-52.0) L Mean Corpuscular Volume 85 FL (80-99) Mean Corpuscular Hemoglobin 29.2 PG (27.0-31.0) Mean Corpuscular Hemoglobin Concent 34.2 G/DL (32.0-36.0) Red Cell Distribution Width 11.0 % (11.6-14.8) L Platelet Count 265 K/UL (150-450) Mean Platelet Volume 6.1 FL (6.5-10.1) L Neutrophils (%) (Auto) 61.5 % (45.0-75.0) Lymphocytes (%) (Auto) 29.4 % (20.0-45.0) Monocytes (%) (Auto) 7.3 % (1.0-10.0) Eosinophils (%) (Auto) 1.3 % (0.0-3.0) Basophils (%) (Auto) 0.6 % (0.0-2.0) Sodium Level 139 MMOL/L (136-145) Potassium Level 3.8 MMOL/L (3.5-5.1) Chloride Level 107 MMOL/L (98-107) Carbon Dioxide Level 20 MMOL/L (21-32) L Anion Gap 12 mmol/L (5-15) Blood Urea Nitrogen 12 mg/dL (7-18) Creatinine 0.7 MG/DL (0.55-1.30) Estimat Glomerular Filtration Rate > 60 mL/min (>60) Glucose Level 107 MG/DL (74-106) H Calcium Level 9.0 MG/DL (8.5-10.1) Phosphorus Level 3.4 MG/DL (2.5-4.9) Magnesium Level 1.7 MG/DL (1.8-2.4) L Total Bilirubin 0.2 MG/DL (0.2-1.0) Aspartate Amino Transf (AST/SGOT) 46 U/L (15-37) H Alanine Aminotransferase (ALT/SGPT) 28 U/L (12-78) Alkaline Phosphatase 53 U/L (46-116) Total Protein 7.9 G/DL (6.4-8.2) Albumin 4.0 G/DL (3.4-5.0) Globulin 3.9 g/dL Albumin/Globulin Ratio 1.0 (1.0-2.7) Current Medications Medications (Trade) Dose Ordered Sig/Con Route PRN Reason Start Time Stop Time Status Last Admin Dose Admin Acetaminophen (Tylenol) 650 mg Q4H PRN ORAL T>100.5 04/11/18 12:45 05/11/18 12:44 Acetaminophen/ Hydrocodone Bitart ([place] 5/325) 1 tab Q6H PRN ORAL PAIN 4-10 04/11/18 12:45 04/18/18 12:44 Al Hydroxide/Mg Hydroxide (Mylanta II) 30 ml Q6H PRN ORAL dyspepsia 04/11/18 12:45 05/11/18 12:44 Dextrose (Dextrose 50%) 25 ml Q30M PRN IV Hypoglycemia 04/11/18 13:00 05/11/18 12:48 Dextrose (Dextrose 50%) 50 ml Q30M PRN IV hypoglycemia 04/11/18 13:00 05/11/18 12:59 Levetiracetam (Keppra) 1,000 mg Q12HR ORAL 04/11/18 21:00 05/11/18 20:59 04/15/18 09:16 Lorazepam (Ativan 2mg/ml 1ml) 1 mg Q6H PRN IM Agitation 04/14/18 15:00 04/21/18 14:59 04/15/18 14:32 Lorazepam (Ativan) 0.5 mg Q4H PRN ORAL For Anxiety 04/12/18 16:30 04/19/18 16:29 04/14/18 07:51 Morphine Sulfate (Morphine Sulfate) 1 mg Q4H PRN IVP Severe Pain (Pain Scale 7-10) 04/11/18 12:45 04/18/18 12:44 Ondansetron HCl (Zofran) 4 mg Q6H PRN ORAL Nausea & Vomiting 04/13/18 10:15 05/13/18 10:14 04/13/18 10:41 Polyethylene Glycol (Miralax) 17 gm HSPRN PRN ORAL Constipation 04/11/18 12:45 05/11/18 12:44 Risperidone (RisperDAL) 1 mg QHS ORAL 04/11/18 21:00 05/11/18 20:59 04/14/18 20:32 Topiramate (Topamax) 100 mg TWICE A DAY ORAL 04/11/18 18:00 05/11/18 17:59 04/15/18 17:00 Zolpidem Tartrate (Ambien) 5 mg HSPRN PRN ORAL Insomnia 04/11/18 21:00 04/18/18 20:59 04/14/18 21:04 Tressa Sanchez M.D. Apr 15, 2018 18:09
[2018-04-15 20:00] VITALS: BP 127/82
[2018-04-16] VITALS: BP 121/84
[2018-04-16 04:00] VITALS: BP 120/75
[2018-04-16] MEDS: LORazepam Inj 2mg/ml 1ml IM PRN (04:41)
[2018-04-16 06:46] LABS: ANION GAP 13 mmol/L (5-15); BLOOD UREA NITROGEN 12 mg/dL (7-18); CALCIUM 9.6 MG/DL (8.5-10.1); CARBON DIOXIDE 18 MMOL/L (21-32); CHLORIDE 107 MMOL/L (98-107); CREATININE 0.7 MG/DL (0.55-1.30); POTASSIUM 3.8 MMOL/L (3.5-5.1); SODIUM 138 MMOL/L (136-145)
[2018-04-16 06:53] LABS: EOSINOPHILS % (AUTO) 1.7 % (0.0-3.0); HEMATOCRIT 40.8 % (42.0-52.0); HEMOGLOBIN 13.9 G/DL (14.2-18.0); LYMPHOCYTES % (AUTO) 28.2 % (20.0-45.0); MEAN CORPUSCULAR VOLUME 85 FL (80-99); MONOCYTES % (AUTO) 7.4 % (1.0-10.0); NEUTROPHILS % (AUTO) 61.8 % (45.0-75.0); PLATELET COUNT 271 K/UL (150-450); RED BLOOD COUNT 4.79 M/UL (4.70-6.10); RED CELL DISTRIBUTION WIDTH 10.9 % (11.6-14.8); WHITE BLOOD COUNT 7.8 K/UL (4.8-10.8)
[2018-04-16 07:55] VITALS: BP 141/90
[2018-04-16] MEDS: Topiramate 100mg tab ORAL SCH ×2 (09:43→17:12)
--- NOTE | 2018-04-16 11:48 | Infectious Diseases Prog Note ---
Assessment/Plan Assessment/Plan ASSESSMENT: 1. Worsening of mental status compared to the baseline, it appears that the patient has some improvement during this stay. -CT brain: No evidence of acute intracranial hemorrhage. 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 2. No evidence of infectious process at this time (normal white blood cells, afebrile, no tachycardia or hypertension). -u/a neg, ucx E.coli (colonizer) -Bcx NTD -CXR: no acute diseae -Bipolar disorder. -History of cerebral palsy. -History of seizure disorder. PLAN: 1. We will monitor the patient off of antibiotics at this point. 2. f/u cultures (blood). 3. We will monitor the patient's laboratories, cultures. 4. If the patient's medical condition worsens due to significant infection based on laboratories, we will start the patient on antibiotic treatment. Subjective Allergies: Coded Allergies: No Known Allergies (Unverified , 04/11/18) Subjective afebrile no leukocytosis off abx Bcx NTD Objective Vital Signs Last 24 Hour Vital Signs Date Time Temp Pulse Resp B/P (MAP) Pulse Ox O2 Delivery O2 Flow Rate FiO2 04/16/18 07:55 98.1 98 21 141/90 (107) 97 04/16/18 04:00 97.4 76 18 120/75 (90) 98 04/16/18 00:00 98.5 82 18 121/84 (96) 99 04/15/18 21:00 Room Air 04/15/18 20:00 98.5 84 20 127/82 (97) 97 04/15/18 15:43 98.1 97 20 152/96 (114) 98 04/15/18 12:10 99.0 74 20 117/67 (84) 99 Height (Feet): 5 Height (Inches): 8.00 Weight (Pounds): 190 Objective HEENT: No pale conjunctivae. No icterus. NECK: No lymphadenopathy. CHEST: Clear. HEART: S1 and S2. ABDOMEN: Soft, nontender. EXTREMITIES: No cyanosis at this time. NEUROLOGIC: Awake, appears to be confused. Laboratory Tests Test 04/16/18 05:58 White Blood Count 7.8 K/UL (4.8-10.8) Red Blood Count 4.79 M/UL (4.70-6.10) Hemoglobin 13.9 G/DL (14.2-18.0) L Hematocrit 40.8 % (42.0-52.0) L Mean Corpuscular Volume 85 FL (80-99) Mean Corpuscular Hemoglobin 29.1 PG (27.0-31.0) Mean Corpuscular Hemoglobin Concent 34.2 G/DL (32.0-36.0) Red Cell Distribution Width 10.9 % (11.6-14.8) L Platelet Count 271 K/UL (150-450) Mean Platelet Volume 5.5 FL (6.5-10.1) L Neutrophils (%) (Auto) 61.8 % (45.0-75.0) Lymphocytes (%) (Auto) 28.2 % (20.0-45.0) Monocytes (%) (Auto) 7.4 % (1.0-10.0) Eosinophils (%) (Auto) 1.7 % (0.0-3.0) Basophils (%) (Auto) 1.0 % (0.0-2.0) Sodium Level 138 MMOL/L (136-145) Potassium Level 3.8 MMOL/L (3.5-5.1) Chloride Level 107 MMOL/L (98-107) Carbon Dioxide Level 18 MMOL/L (21-32) L Anion Gap 13 mmol/L (5-15) Blood Urea Nitrogen 12 mg/dL (7-18) Creatinine 0.7 MG/DL (0.55-1.30) Estimat Glomerular Filtration Rate > 60 mL/min (>60) Glucose Level 114 MG/DL (74-106) H Calcium Level 9.6 MG/DL (8.5-10.1) Current Medications Medications (Trade) Dose Ordered Sig/Con Route PRN Reason Start Time Stop Time Status Last Admin Dose Admin Acetaminophen (Tylenol) 650 mg Q4H PRN ORAL T>100.5 04/11/18 12:45 05/11/18 12:44 Acetaminophen/ Hydrocodone Bitart ([place] 5/325) 1 tab Q6H PRN ORAL PAIN 4-10 04/11/18 12:45 04/18/18 12:44 Al Hydroxide/Mg Hydroxide (Mylanta II) 30 ml Q6H PRN ORAL dyspepsia 04/11/18 12:45 05/11/18 12:44 Dextrose (Dextrose 50%) 25 ml Q30M PRN IV Hypoglycemia 04/11/18 13:00 05/11/18 12:48 Dextrose (Dextrose 50%) 50 ml Q30M PRN IV hypoglycemia 04/11/18 13:00 05/11/18 12:59 Levetiracetam (Keppra) 1,000 mg Q12HR ORAL 04/11/18 21:00 05/11/18 20:59 04/16/18 09:44 Lorazepam (Ativan 2mg/ml 1ml) 1 mg Q6H PRN IM Agitation 04/14/18 15:00 04/21/18 14:59 04/16/18 04:41 Lorazepam (Ativan) 0.5 mg Q4H PRN ORAL For Anxiety 04/12/18 16:30 04/19/18 16:29 04/14/18 07:51 Morphine Sulfate (Morphine Sulfate) 1 mg Q4H PRN IVP Severe Pain (Pain Scale 7-10) 04/11/18 12:45 04/18/18 12:44 Ondansetron HCl (Zofran) 4 mg Q6H PRN ORAL Nausea & Vomiting 04/13/18 10:15 05/13/18 10:14 04/13/18 10:41 Polyethylene Glycol (Miralax) 17 gm HSPRN PRN ORAL Constipation 04/11/18 12:45 05/11/18 12:44 Risperidone (RisperDAL) 1 mg QHS ORAL 04/11/18 21:00 05/11/18 20:59 04/15/18 20:53 Topiramate (Topamax) 100 mg TWICE A DAY ORAL 04/11/18 18:00 05/11/18 17:59 04/16/18 09:43 Zolpidem Tartrate (Ambien) 5 mg HSPRN PRN ORAL Insomnia 04/11/18 21:00 04/18/18 20:59 04/14/18 21:04 Tressa Sanchez M.D. Apr 16, 2018 11:48
[2018-04-16 12:25] VITALS: BP 121/80
--- NOTE | 2018-04-16 12:58 | Pulmonology Progress Note ---
Assessment/Plan Problems: (1) Altered level of consciousness (2) Pyuria (3) Schizoaffective disorder, bipolar type (4) Delirium (5) Seizure disorder Assessment/Plan sitter at bed site doing better f/u cultures seizure precaution dvt prophylaxis Subjective ROS Limited/Unobtainable: No Constitutional: Reports: no symptoms HEENT: Repors: no symptoms Respiratory: Reports: no symptoms Allergies: Coded Allergies: No Known Allergies (Unverified , 04/11/18) Objective Last 24 Hour Vital Signs Date Time Temp Pulse Resp B/P (MAP) Pulse Ox O2 Delivery O2 Flow Rate FiO2 04/16/18 12:25 97.8 90 18 121/80 (94) 04/16/18 09:00 Room Air 04/16/18 07:55 98.1 98 21 141/90 (107) 97 04/16/18 04:00 97.4 76 18 120/75 (90) 98 04/16/18 00:00 98.5 82 18 121/84 (96) 99 04/15/18 21:00 Room Air 04/15/18 20:00 98.5 84 20 127/82 (97) 97 04/15/18 15:43 98.1 97 20 152/96 (114) 98 Intake and Output 04/15/18 04/16/18 19:00 07:00 Intake Total 480 ml Balance 480 ml Intake Oral 480 ml # Voids 5 2 General Appearance: WD/WN HEENT: normocephalic, atraumatic Respiratory/Chest: chest wall non-tender, lungs clear Cardiovascular: normal peripheral pulses, normal rate Abdomen: normal bowel sounds, non distended Genitourinary: normal external genitalia Extremities: no clubbing Skin: no rash Laboratory Tests 04/16/18 05:58: White Blood Count 7.8, Red Blood Count 4.79, Hemoglobin 13.9L, Hematocrit 40.8L , Mean Corpuscular Volume 85, Mean Corpuscular Hemoglobin 29.1, Mean Corpuscular Hemoglobin Concent 34.2, Red Cell Distribution Width 10.9L, Platelet Count 271, Mean Platelet Volume 5.5L, Neutrophils (%) (Auto) 61.8, Lymphocytes (%) (Auto) 28.2, Monocytes (%) (Auto) 7.4, Eosinophils (%) (Auto) 1.7, Basophils (%) (Auto) 1.0, Sodium Level 138, Potassium Level 3.8, Chloride Level 107, Carbon Dioxide Level 18L, Anion Gap 13, Blood Urea Nitrogen 12, Creatinine 0.7, Estimat Glomerular Filtration Rate > 60, Glucose Level 114H, Calcium Level 9.6 Current Medications Medications (Trade) Dose Ordered Sig/Con Route PRN Reason Start Time Stop Time Status Last Admin Dose Admin Acetaminophen (Tylenol) 650 mg Q4H PRN ORAL T>100.5 04/11/18 12:45 05/11/18 12:44 Acetaminophen/ Hydrocodone Bitart ([place] 5/325) 1 tab Q6H PRN ORAL PAIN 4-10 04/11/18 12:45 04/18/18 12:44 Al Hydroxide/Mg Hydroxide (Mylanta II) 30 ml Q6H PRN ORAL dyspepsia 04/11/18 12:45 05/11/18 12:44 Dextrose (Dextrose 50%) 25 ml Q30M PRN IV Hypoglycemia 04/11/18 13:00 05/11/18 12:48 Dextrose (Dextrose 50%) 50 ml Q30M PRN IV hypoglycemia 04/11/18 13:00 05/11/18 12:59 Levetiracetam (Keppra) 1,000 mg Q12HR ORAL 04/11/18 21:00 05/11/18 20:59 04/16/18 09:44 Lorazepam (Ativan 2mg/ml 1ml) 1 mg Q6H PRN IM Agitation 04/14/18 15:00 04/21/18 14:59 04/16/18 04:41 Lorazepam (Ativan) 0.5 mg Q4H PRN ORAL For Anxiety 04/12/18 16:30 04/19/18 16:29 04/14/18 07:51 Morphine Sulfate (Morphine Sulfate) 1 mg Q4H PRN IVP Severe Pain (Pain Scale 7-10) 04/11/18 12:45 04/18/18 12:44 Ondansetron HCl (Zofran) 4 mg Q6H PRN ORAL Nausea & Vomiting 04/13/18 10:15 05/13/18 10:14 04/13/18 10:41 Polyethylene Glycol (Miralax) 17 gm HSPRN PRN ORAL Constipation 04/11/18 12:45 05/11/18 12:44 Risperidone (RisperDAL) 1 mg QHS ORAL 04/11/18 21:00 05/11/18 20:59 04/15/18 20:53 Topiramate (Topamax) 100 mg TWICE A DAY ORAL 04/11/18 18:00 05/11/18 17:59 04/16/18 09:43 Zolpidem Tartrate (Ambien) 5 mg HSPRN PRN ORAL Insomnia 04/11/18 21:00 04/18/18 20:59 04/14/18 21:04 Luciano Mcdonald MD Apr 16, 2018 12:58
--- NOTE | 2018-04-16 13:24 | General Progress Note ---
Assessment/Plan Problem List: (1) Anemia ICD Codes: D64.9 - Anemia, unspecified SNOMED: 243500650 (2) Delirium ICD Codes: R41.0 - Disorientation, unspecified SNOMED: 5404424 (3) Schizoaffective disorder, bipolar type ICD Codes: F25.0 - Schizoaffective disorder, bipolar type SNOMED: 11919218 (4) Violent behavior ICD Codes: R45.6 - Violent behavior SNOMED: 510039240 Status: unchanged Assessment/Plan ot pt diet psyc tx /transfer Subjective Constitutional: Reports: weakness Allergies: Coded Allergies: No Known Allergies (Unverified , 04/11/18) All Systems: reviewed and negative except above Subjective in wc confused Objective Last 24 Hour Vital Signs Date Time Temp Pulse Resp B/P (MAP) Pulse Ox O2 Delivery O2 Flow Rate FiO2 04/16/18 12:25 97.8 90 18 121/80 (94) 04/16/18 09:00 Room Air 04/16/18 07:55 98.1 98 21 141/90 (107) 97 04/16/18 04:00 97.4 76 18 120/75 (90) 98 04/16/18 00:00 98.5 82 18 121/84 (96) 99 04/15/18 21:00 Room Air 04/15/18 20:00 98.5 84 20 127/82 (97) 97 04/15/18 15:43 98.1 97 20 152/96 (114) 98 Intake and Output 04/15/18 04/16/18 19:00 07:00 Intake Total 480 ml Balance 480 ml Intake Oral 480 ml # Voids 5 2 Laboratory Tests 04/16/18 05:58: White Blood Count 7.8, Red Blood Count 4.79, Hemoglobin 13.9L, Hematocrit 40.8L , Mean Corpuscular Volume 85, Mean Corpuscular Hemoglobin 29.1, Mean Corpuscular Hemoglobin Concent 34.2, Red Cell Distribution Width 10.9L, Platelet Count 271, Mean Platelet Volume 5.5L, Neutrophils (%) (Auto) 61.8, Lymphocytes (%) (Auto) 28.2, Monocytes (%) (Auto) 7.4, Eosinophils (%) (Auto) 1.7, Basophils (%) (Auto) 1.0, Sodium Level 138, Potassium Level 3.8, Chloride Level 107, Carbon Dioxide Level 18L, Anion Gap 13, Blood Urea Nitrogen 12, Creatinine 0.7, Estimat Glomerular Filtration Rate > 60, Glucose Level 114H, Calcium Level 9.6 Height (Feet): 5 Height (Inches): 8.00 Weight (Pounds): 190 General Appearance: lethargic, confused EENT: normal ENT inspection Neck: normal alignment Cardiovascular: normal peripheral pulses, normal rate, regular rhythm Respiratory/Chest: chest wall non-tender, lungs clear, normal breath sounds Abdomen: normal bowel sounds, non tender, soft Extremities: normal inspection Edema: no edema noted Arm (L), no edema noted Arm (R), no edema noted Leg (L), no edema noted Leg (R), no edema noted Pedal (L), no edema noted Pedal (R), no edema noted Generalized Neurologic: motor weakness Skin: normal pigmentation, warm/dry Jareth Branch DO Apr 16, 2018 13:24
[2018-04-16 16:00] VITALS: BP 118/85
[2018-04-16 20:00] VITALS: BP 130/81
[2018-04-17] VITALS: BP 135/89
[2018-04-17 04:00] VITALS: BP 126/81
[2018-04-17 07:48] VITALS: BP 139/87
[2018-04-17] MEDS: Topiramate 100mg tab ORAL SCH ×2 (08:08→18:04)
[2018-04-17] MEDS: LORazepam Inj 2mg/ml 1ml IM PRN (08:09)
--- NOTE | 2018-04-17 11:17 | General Progress Note ---
Assessment/Plan Problem List: (1) Schizoaffective disorder, bipolar type ICD Codes: F25.0 - Schizoaffective disorder, bipolar type SNOMED: 27178455 (2) Violent behavior ICD Codes: R45.6 - Violent behavior SNOMED: 887824506 (3) Anemia ICD Codes: D64.9 - Anemia, unspecified SNOMED: 753902818 (4) Delirium ICD Codes: R41.0 - Disorientation, unspecified SNOMED: 2910263 (5) Seizure ICD Codes: R56.9 - Unspecified convulsions SNOMED: 47687964 Status: stable, progressing Assessment/Plan ot pt diet seizure control neuro tanna eval cbc bmp am psyc tx /transfer Subjective Constitutional: Reports: weakness Allergies: Coded Allergies: No Known Allergies (Unverified , 04/11/18) All Systems: reviewed and negative except above Subjective sleepy had seizure yesterday Objective Last 24 Hour Vital Signs Date Time Temp Pulse Resp B/P (MAP) Pulse Ox O2 Delivery O2 Flow Rate FiO2 04/17/18 09:00 Room Air 04/17/18 07:48 98.4 105 18 139/87 (104) 97 04/17/18 04:00 98.4 87 19 126/81 (96) 96 04/17/18 00:00 97.9 99 18 135/89 (104) 04/16/18 21:00 Room Air 04/16/18 20:00 97.7 94 18 130/81 (97) 04/16/18 16:00 98.1 89 17 118/85 (96) 95 04/16/18 12:25 97.8 90 18 121/80 (94) Intake and Output 04/16/18 04/17/18 19:00 07:00 Intake Total 240 ml Balance 240 ml Intake Oral 240 ml # Voids 3 Height (Feet): 5 Height (Inches): 8.00 Weight (Pounds): 190 General Appearance: lethargic EENT: normal ENT inspection Neck: normal alignment Cardiovascular: normal peripheral pulses, normal rate, regular rhythm Respiratory/Chest: chest wall non-tender, lungs clear, normal breath sounds Abdomen: normal bowel sounds, non tender, soft Extremities: normal inspection Edema: no edema noted Arm (L), no edema noted Arm (R), no edema noted Leg (L), no edema noted Leg (R), no edema noted Pedal (L), no edema noted Pedal (R), no edema noted Generalized Neurologic: motor weakness Skin: normal pigmentation, warm/dry Jareth Branch DO Apr 17, 2018 11:17
[2018-04-17 11:41] VITALS: BP 113/80
--- NOTE | 2018-04-17 11:45 | Infectious Diseases Prog Note ---
Assessment/Plan Assessment/Plan ASSESSMENT: 1. Worsening of mental status compared to the baseline, it appears that the patient has some improvement during this stay. -CT brain: No evidence of acute intracranial hemorrhage. 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 2. No evidence of infectious process at this time (normal white blood cells, afebrile, no tachycardia or hypertension). -u/a neg, ucx E.coli (colonizer) -Bcx Neg -CXR: no acute diseae -Bipolar disorder. -History of cerebral palsy. -History of seizure disorder. PLAN: 1. We will monitor the patient off of antibiotics at this point. 2. f/u cultures (blood). 3. We will monitor the patient's laboratories, cultures. 4. If the patient's medical condition worsens due to significant infection based on laboratories, we will start the patient on antibiotic treatment. Subjective Allergies: Coded Allergies: No Known Allergies (Unverified , 04/11/18) Subjective afebrile no leukocytosis off abx Bcx Neg Objective Vital Signs Last 24 Hour Vital Signs Date Time Temp Pulse Resp B/P (MAP) Pulse Ox O2 Delivery O2 Flow Rate FiO2 04/17/18 11:41 97.7 88 18 113/80 (91) 95 04/17/18 09:00 Room Air 04/17/18 07:48 98.4 105 18 139/87 (104) 97 04/17/18 04:00 98.4 87 19 126/81 (96) 96 04/17/18 00:00 97.9 99 18 135/89 (104) 04/16/18 21:00 Room Air 04/16/18 20:00 97.7 94 18 130/81 (97) 04/16/18 16:00 98.1 89 17 118/85 (96) 95 04/16/18 12:25 97.8 90 18 121/80 (94) Height (Feet): 5 Height (Inches): 8.00 Weight (Pounds): 190 Objective HEENT: No pale conjunctivae. No icterus. NECK: No lymphadenopathy. CHEST: Clear. HEART: S1 and S2. ABDOMEN: Soft, nontender. EXTREMITIES: No cyanosis at this time. NEUROLOGIC: Awake, appears to be confused. Current Medications Medications (Trade) Dose Ordered Sig/Con Route PRN Reason Start Time Stop Time Status Last Admin Dose Admin Acetaminophen (Tylenol) 650 mg Q4H PRN ORAL T>100.5 04/11/18 12:45 05/11/18 12:44 Acetaminophen/ Hydrocodone Bitart ([place] 5/325) 1 tab Q6H PRN ORAL PAIN 4-10 04/11/18 12:45 04/18/18 12:44 Al Hydroxide/Mg Hydroxide (Mylanta II) 30 ml Q6H PRN ORAL dyspepsia 04/11/18 12:45 05/11/18 12:44 Dextrose (Dextrose 50%) 25 ml Q30M PRN IV Hypoglycemia 04/11/18 13:00 05/11/18 12:48 Dextrose (Dextrose 50%) 50 ml Q30M PRN IV hypoglycemia 04/11/18 13:00 05/11/18 12:59 Levetiracetam (Keppra) 1,000 mg Q12HR ORAL 04/11/18 21:00 05/11/18 20:59 04/17/18 08:08 Lorazepam (Ativan 2mg/ml 1ml) 1 mg Q6H PRN IM Agitation 04/14/18 15:00 04/21/18 14:59 04/17/18 08:09 Lorazepam (Ativan) 0.5 mg Q4H PRN ORAL For Anxiety 04/12/18 16:30 04/19/18 16:29 04/14/18 07:51 Morphine Sulfate (Morphine Sulfate) 1 mg Q4H PRN IVP Severe Pain (Pain Scale 7-10) 04/11/18 12:45 04/18/18 12:44 Ondansetron HCl (Zofran) 4 mg Q6H PRN ORAL Nausea & Vomiting 04/13/18 10:15 05/13/18 10:14 04/13/18 10:41 Polyethylene Glycol (Miralax) 17 gm HSPRN PRN ORAL Constipation 04/11/18 12:45 05/11/18 12:44 Risperidone (RisperDAL) 2 mg TID ORAL 04/16/18 18:00 05/11/18 20:59 04/17/18 08:09 Topiramate (Topamax) 100 mg TWICE A DAY ORAL 04/11/18 18:00 05/11/18 17:59 04/17/18 08:08 Zolpidem Tartrate (Ambien) 5 mg HSPRN PRN ORAL Insomnia 04/11/18 21:00 04/18/18 20:59 04/14/18 21:04 Tressa Sanchez M.D. Apr 17, 2018 11:44
--- NOTE | 2018-04-17 15:41 | Pulmonology Progress Note ---
Assessment/Plan Problems: (1) Altered level of consciousness (2) Pyuria (3) Schizoaffective disorder, bipolar type (4) Delirium (5) Seizure disorder Assessment/Plan had seizures earlier increase depakote sitter at bed site doing better f/u cultures seizure precaution dvt prophylaxis Subjective ROS Limited/Unobtainable: No Constitutional: Reports: no symptoms HEENT: Repors: no symptoms Respiratory: Reports: no symptoms Allergies: Coded Allergies: No Known Allergies (Unverified , 04/11/18) Objective Last 24 Hour Vital Signs Date Time Temp Pulse Resp B/P (MAP) Pulse Ox O2 Delivery O2 Flow Rate FiO2 04/17/18 11:41 97.7 88 18 113/80 (91) 95 04/17/18 09:00 Room Air 04/17/18 07:48 98.4 105 18 139/87 (104) 97 04/17/18 04:00 98.4 87 19 126/81 (96) 96 04/17/18 00:00 97.9 99 18 135/89 (104) 04/16/18 21:00 Room Air 04/16/18 20:00 97.7 94 18 130/81 (97) 04/16/18 16:00 98.1 89 17 118/85 (96) 95 Intake and Output 04/16/18 04/17/18 19:00 07:00 Intake Total 240 ml Balance 240 ml Intake Oral 240 ml # Voids 3 General Appearance: WD/WN HEENT: normocephalic Respiratory/Chest: chest wall non-tender, lungs clear Cardiovascular: normal peripheral pulses, regular rhythm Abdomen: normal bowel sounds, non distended Extremities: no clubbing Current Medications Medications (Trade) Dose Ordered Sig/Con Route PRN Reason Start Time Stop Time Status Last Admin Dose Admin Acetaminophen (Tylenol) 650 mg Q4H PRN ORAL T>100.5 04/11/18 12:45 05/11/18 12:44 Acetaminophen/ Hydrocodone Bitart ([place] 5/325) 1 tab Q6H PRN ORAL PAIN 4-10 04/11/18 12:45 04/18/18 12:44 Al Hydroxide/Mg Hydroxide (Mylanta II) 30 ml Q6H PRN ORAL dyspepsia 04/11/18 12:45 05/11/18 12:44 Dextrose (Dextrose 50%) 25 ml Q30M PRN IV Hypoglycemia 04/11/18 13:00 05/11/18 12:48 Dextrose (Dextrose 50%) 50 ml Q30M PRN IV hypoglycemia 04/11/18 13:00 05/11/18 12:59 Levetiracetam (Keppra) 1,000 mg Q12HR ORAL 04/11/18 21:00 05/11/18 20:59 04/17/18 08:08 Lorazepam (Ativan 2mg/ml 1ml) 1 mg Q6H PRN IM Agitation 04/14/18 15:00 04/21/18 14:59 04/17/18 08:09 Lorazepam (Ativan) 0.5 mg Q4H PRN ORAL For Anxiety 04/12/18 16:30 04/19/18 16:29 04/14/18 07:51 Morphine Sulfate (Morphine Sulfate) 1 mg Q4H PRN IVP Severe Pain (Pain Scale 7-10) 04/11/18 12:45 04/18/18 12:44 Ondansetron HCl (Zofran) 4 mg Q6H PRN ORAL Nausea & Vomiting 04/13/18 10:15 05/13/18 10:14 04/13/18 10:41 Polyethylene Glycol (Miralax) 17 gm HSPRN PRN ORAL Constipation 04/11/18 12:45 05/11/18 12:44 Risperidone (RisperDAL) 2 mg TID ORAL 04/16/18 18:00 05/11/18 20:59 04/17/18 12:01 Topiramate (Topamax) 100 mg TWICE A DAY ORAL 04/11/18 18:00 05/11/18 17:59 04/17/18 08:08 Zolpidem Tartrate (Ambien) 5 mg HSPRN PRN ORAL Insomnia 04/11/18 21:00 04/18/18 20:59 04/14/18 21:04 Luciano Mcdonald MD Apr 17, 2018 15:41
[2018-04-17 16:00] VITALS: BP 128/80
[2018-04-17 20:00] VITALS: BP 131/76
[2018-04-17] MEDS: LORazepam Inj 2mg/ml 1ml IVP PRN (20:40)
[2018-04-17] MEDS: Zolpidem 5mg tab ORAL PRN (23:18)
[2018-04-18] VITALS (7 sets, daily range): BP systolic 111–139; BP diastolic 66–92
[2018-04-18] MEDS: LORazepam Inj 2mg/ml 1ml IVP PRN (03:54)
[2018-04-18 07:55] LABS: ANION GAP 15 mmol/L (5-15); BLOOD UREA NITROGEN 13 mg/dL (7-18); CALCIUM 9.7 MG/DL (8.5-10.1); CARBON DIOXIDE 18 MMOL/L (21-32); CHLORIDE 108 MMOL/L (98-107); CREATININE 0.7 MG/DL (0.55-1.30); POTASSIUM 3.3 MMOL/L (3.5-5.1); SODIUM 141 MMOL/L (136-145)
[2018-04-18] MEDS: Topiramate 100mg tab ORAL SCH ×2 (08:26→17:10)
[2018-04-18 08:48] LABS: BASOPHILS % (AUTO) 0.4 % (0.0-2.0); EOSINOPHILS % (AUTO) 0.6 % (0.0-3.0); HEMATOCRIT 42.8 % (42.0-52.0); HEMOGLOBIN 14.4 G/DL (14.2-18.0); LYMPHOCYTES % (AUTO) 22.9 % (20.0-45.0); MEAN CORPUSCULAR VOLUME 85 FL (80-99); MONOCYTES % (AUTO) 7.1 % (1.0-10.0); NEUTROPHILS % (AUTO) 69.1 % (45.0-75.0); PLATELET COUNT 345 K/UL (150-450); RED BLOOD COUNT 5.01 M/UL (4.70-6.10); WHITE BLOOD COUNT 10.1 K/UL (4.8-10.8)
--- NOTE | 2018-04-18 08:50 | Infectious Diseases Prog Note ---
Assessment/Plan Assessment/Plan Worsened of mental status compared to the baseline, it appears that the patient has some improvement during this stay. -CT brain: No evidence of acute intracranial hemorrhage. 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 No evidence of infectious process at this time (normal white blood cells, afebrile, no tachycardia or hypertension). -u/a neg, ucx E.coli (colonizer) -Bcx Neg -CXR: no acute diseae -Bipolar disorder. -History of cerebral palsy. -History of seizure disorder. PLAN: - We will continue to monitor the patient off of antibiotics at this point. - f/u cultures (blood). - We will monitor the patient's laboratories, cultures. - If the patient's medical condition worsens due to significant infection based on laboratories, we will start the patient on antibiotic treatment. Subjective Allergies: Coded Allergies: No Known Allergies (Unverified , 04/11/18) Subjective Patient still confused. Knows name Afebrile No leukocytosis Satting well Objective Vital Signs Last 24 Hour Vital Signs Date Time Temp Pulse Resp B/P (MAP) Pulse Ox O2 Delivery O2 Flow Rate FiO2 04/18/18 08:00 97.8 92 20 136/88 (104) 97 04/18/18 04:00 97.9 89 18 139/92 (108) 96 04/18/18 00:00 97.3 94 18 127/81 (96) 97 04/17/18 21:00 Room Air 04/17/18 20:00 97.9 102 18 131/76 (94) 96 04/17/18 16:00 98.2 91 18 128/80 (96) 94 04/17/18 11:41 97.7 88 18 113/80 (91) 95 04/17/18 09:00 Room Air Height (Feet): 5 Height (Inches): 8.00 Weight (Pounds): 190 Objective HEENT: No pale conjunctivae. No icterus. NECK: No lymphadenopathy. CHEST: Clear. HEART: S1 and S2. ABDOMEN: Soft, nontender. EXTREMITIES: No cyanosis at this time. NEUROLOGIC: Awake and oriented to name, appears to be confused still. Laboratory Tests Test 04/18/18 05:25 White Blood Count Pending Red Blood Count Pending Hemoglobin Pending Hematocrit Pending Mean Corpuscular Volume Pending Mean Corpuscular Hemoglobin Pending Mean Corpuscular Hemoglobin Concent Pending Red Cell Distribution Width Pending Platelet Count Pending Mean Platelet Volume Pending Neutrophils (%) (Auto) Pending Lymphocytes (%) (Auto) Pending Monocytes (%) (Auto) Pending Eosinophils (%) (Auto) Pending Basophils (%) (Auto) Pending Sodium Level 141 MMOL/L (136-145) Potassium Level 3.3 MMOL/L (3.5-5.1) L Chloride Level 108 MMOL/L (98-107) H Carbon Dioxide Level 18 MMOL/L (21-32) L Anion Gap 15 mmol/L (5-15) Blood Urea Nitrogen 13 mg/dL (7-18) Creatinine 0.7 MG/DL (0.55-1.30) Estimat Glomerular Filtration Rate > 60 mL/min (>60) Glucose Level 131 MG/DL (74-106) H Calcium Level 9.7 MG/DL (8.5-10.1) Current Medications Medications (Trade) Dose Ordered Sig/Con Route PRN Reason Start Time Stop Time Status Last Admin Dose Admin Acetaminophen (Tylenol) 650 mg Q4H PRN ORAL T>100.5 04/11/18 12:45 05/11/18 12:44 Acetaminophen/ Hydrocodone Bitart ([place] 5/325) 1 tab Q6H PRN ORAL PAIN 4-10 04/11/18 12:45 04/18/18 12:44 Al Hydroxide/Mg Hydroxide (Mylanta II) 30 ml Q6H PRN ORAL dyspepsia 04/11/18 12:45 05/11/18 12:44 Dextrose (Dextrose 50%) 25 ml Q30M PRN IV Hypoglycemia 04/11/18 13:00 05/11/18 12:48 Dextrose (Dextrose 50%) 50 ml Q30M PRN IV hypoglycemia 04/11/18 13:00 05/11/18 12:59 Levetiracetam (Keppra) 1,500 mg Q12HR ORAL 04/17/18 21:00 05/11/18 20:59 04/18/18 08:26 Lorazepam (Ativan 2mg/ml 1ml) 1 mg Q6H PRN IVP Agitation 04/17/18 15:43 04/21/18 15:42 04/18/18 03:54 Lorazepam (Ativan) 0.5 mg Q4H PRN ORAL For Anxiety 04/12/18 16:30 04/19/18 16:29 04/14/18 07:51 Morphine Sulfate (Morphine Sulfate) 1 mg Q4H PRN IVP Severe Pain (Pain Scale 7-10) 04/11/18 12:45 04/18/18 12:44 Ondansetron HCl (Zofran) 4 mg Q6H PRN ORAL Nausea & Vomiting 04/13/18 10:15 05/13/18 10:14 04/13/18 10:41 Polyethylene Glycol (Miralax) 17 gm HSPRN PRN ORAL Constipation 04/11/18 12:45 05/11/18 12:44 Risperidone (RisperDAL) 2 mg TID ORAL 04/16/18 18:00 05/11/18 20:59 04/18/18 08:27 Topiramate (Topamax) 100 mg TWICE A DAY ORAL 04/11/18 18:00 05/11/18 17:59 04/18/18 08:26 Zolpidem Tartrate (Ambien) 5 mg HSPRN PRN ORAL Insomnia 04/11/18 21:00 04/18/18 20:59 04/17/18 23:18 Bo Sharp MD Apr 18, 2018 08:50
--- NOTE | 2018-04-18 08:56 | General Progress Note ---
Assessment/Plan Problem List: (1) Schizoaffective disorder, bipolar type ICD Codes: F25.0 - Schizoaffective disorder, bipolar type SNOMED: 38121365 (2) Violent behavior ICD Codes: R45.6 - Violent behavior SNOMED: 488470836 (3) Anemia ICD Codes: D64.9 - Anemia, unspecified SNOMED: 699577017 (4) Delirium ICD Codes: R41.0 - Disorientation, unspecified SNOMED: 9019723 (5) Seizure ICD Codes: R56.9 - Unspecified convulsions SNOMED: 52432258 Status: unchanged Assessment/Plan ot pt diet seizure control neuro tanna eval cbc bmp am psyc tx /transfer Subjective Constitutional: Reports: weakness Allergies: Coded Allergies: No Known Allergies (Unverified , 04/11/18) All Systems: reviewed and negative except above Subjective sleepy calm Objective Last 24 Hour Vital Signs Date Time Temp Pulse Resp B/P (MAP) Pulse Ox O2 Delivery O2 Flow Rate FiO2 04/18/18 08:00 97.8 92 20 136/88 (104) 97 04/18/18 04:00 97.9 89 18 139/92 (108) 96 04/18/18 00:00 97.3 94 18 127/81 (96) 97 04/17/18 21:00 Room Air 04/17/18 20:00 97.9 102 18 131/76 (94) 96 04/17/18 16:00 98.2 91 18 128/80 (96) 94 04/17/18 11:41 97.7 88 18 113/80 (91) 95 04/17/18 09:00 Room Air Intake and Output 04/17/18 04/18/18 18:59 06:59 Intake Total 720 ml 360 ml Balance 720 ml 360 ml Intake Oral 720 ml 360 ml # Voids 4 3 Laboratory Tests 04/18/18 05:25: White Blood Count 10.1, Red Blood Count 5.01, Hemoglobin 14.4, Hematocrit 42.8, Mean Corpuscular Volume 85, Mean Corpuscular Hemoglobin 28.6, Mean Corpuscular Hemoglobin Concent 33.5, Red Cell Distribution Width 11.0L, Platelet Count 345, Mean Platelet Volume 5.6L, Neutrophils (%) (Auto) 69.1, Lymphocytes (%) (Auto) 22.9, Monocytes (%) (Auto) 7.1, Eosinophils (%) (Auto) 0.6, Basophils (%) (Auto ) 0.4, Sodium Level 141, Potassium Level 3.3L, Chloride Level 108H, Carbon Dioxide Level 18L, Anion Gap 15, Blood Urea Nitrogen 13, Creatinine 0.7, Estimat Glomerular Filtration Rate > 60, Glucose Level 131H, Calcium Level 9.7 Height (Feet): 5 Height (Inches): 8.00 Weight (Pounds): 190 General Appearance: lethargic EENT: normal ENT inspection Neck: normal alignment Cardiovascular: normal peripheral pulses, normal rate, regular rhythm Respiratory/Chest: chest wall non-tender, lungs clear, normal breath sounds Abdomen: normal bowel sounds, non tender, soft Extremities: normal inspection Edema: no edema noted Arm (L), no edema noted Arm (R), no edema noted Leg (L), no edema noted Leg (R), no edema noted Pedal (L), no edema noted Pedal (R), no edema noted Generalized Neurologic: motor weakness Skin: normal pigmentation, warm/dry Jareth Branch DO Apr 18, 2018 08:56
[2018-04-18] MEDS: Docusate 100mg cap ORAL SCH ×2 (12:03→17:10)
[2018-04-19 04:00] VITALS: BP 129/78
[2018-04-19 07:35] LABS: BASOPHILS % (AUTO) 0.7 % (0.0-2.0); EOSINOPHILS % (AUTO) 1.4 % (0.0-3.0); HEMATOCRIT 40.5 % (42.0-52.0); HEMOGLOBIN 13.9 G/DL (14.2-18.0); LYMPHOCYTES % (AUTO) 30.8 % (20.0-45.0); MEAN CORPUSCULAR VOLUME 85 FL (80-99); MONOCYTES % (AUTO) 7.5 % (1.0-10.0); NEUTROPHILS % (AUTO) 59.6 % (45.0-75.0); PLATELET COUNT 329 K/UL (150-450); RED BLOOD COUNT 4.76 M/UL (4.70-6.10); RED CELL DISTRIBUTION WIDTH 11.1 % (11.6-14.8); WHITE BLOOD COUNT 8.1 K/UL (4.8-10.8)
[2018-04-19 07:56] LABS: ANION GAP 14 mmol/L (5-15); BLOOD UREA NITROGEN 15 mg/dL (7-18); CALCIUM 9.3 MG/DL (8.5-10.1); CARBON DIOXIDE 20 MMOL/L (21-32); CHLORIDE 110 MMOL/L (98-107); CREATININE 0.8 MG/DL (0.55-1.30); POTASSIUM 3.5 MMOL/L (3.5-5.1); SODIUM 143 MMOL/L (136-145)
[2018-04-19 08:00] VITALS: BP 126/88
--- NOTE | 2018-04-19 08:50 | General Progress Note ---
Assessment/Plan Problem List: (1) Schizoaffective disorder, bipolar type ICD Codes: F25.0 - Schizoaffective disorder, bipolar type SNOMED: 02009558 (2) Violent behavior ICD Codes: R45.6 - Violent behavior SNOMED: 674567530 (3) Anemia ICD Codes: D64.9 - Anemia, unspecified SNOMED: 160515002 (4) Delirium ICD Codes: R41.0 - Disorientation, unspecified SNOMED: 2075747 (5) Seizure ICD Codes: R56.9 - Unspecified convulsions SNOMED: 39152232 Status: unchanged Assessment/Plan ot pt diet seizure control neuro tanna eval cbc bmp am psyc tx /transfer Subjective Constitutional: Reports: weakness Allergies: Coded Allergies: No Known Allergies (Unverified , 04/11/18) All Systems: reviewed and negative except above Subjective sleepy calm Objective Last 24 Hour Vital Signs Date Time Temp Pulse Resp B/P (MAP) Pulse Ox O2 Delivery O2 Flow Rate FiO2 04/19/18 08:00 97.8 77 18 126/88 (101) 98 04/19/18 04:00 97.9 78 18 129/78 (95) 97 04/18/18 23:04 98.5 94 20 111/76 (88) 98 04/18/18 21:00 Room Air 04/18/18 20:00 97.5 100 20 114/66 (82) 97 04/18/18 16:00 97.7 95 18 114/75 (88) 100 04/18/18 11:55 97.7 70 18 125/74 (91) 96 04/18/18 09:00 Room Air Intake and Output 04/18/18 04/19/18 19:00 07:00 Intake Total 240 ml 240 ml Balance 240 ml 240 ml Intake Oral 240 ml 240 ml # Voids 4 2 # Bowel Movements 1 Laboratory Tests 04/19/18 05:15: White Blood Count 8.1, Red Blood Count 4.76, Hemoglobin 13.9L, Hematocrit 40.5L , Mean Corpuscular Volume 85, Mean Corpuscular Hemoglobin 29.3, Mean Corpuscular Hemoglobin Concent 34.5, Red Cell Distribution Width 11.1L, Platelet Count 329, Mean Platelet Volume 5.4L, Neutrophils (%) (Auto) 59.6, Lymphocytes (%) (Auto) 30.8, Monocytes (%) (Auto) 7.5, Eosinophils (%) (Auto) 1.4, Basophils (%) (Auto) 0.7, Sodium Level 143, Potassium Level 3.5, Chloride Level 110H, Carbon Dioxide Level 20L, Anion Gap 14, Blood Urea Nitrogen 15, Creatinine 0.8, Estimat Glomerular Filtration Rate > 60, Glucose Level 118H, Calcium Level 9.3 Height (Feet): 5 Height (Inches): 8.00 Weight (Pounds): 190 General Appearance: lethargic EENT: normal ENT inspection Neck: normal alignment Cardiovascular: normal peripheral pulses, normal rate, regular rhythm Respiratory/Chest: chest wall non-tender, lungs clear, normal breath sounds Abdomen: normal bowel sounds, non tender, soft Extremities: normal inspection Edema: no edema noted Arm (L), no edema noted Arm (R), no edema noted Leg (L), no edema noted Leg (R), no edema noted Pedal (L), no edema noted Pedal (R), no edema noted Generalized Neurologic: motor weakness Skin: normal pigmentation, warm/dry Jareth Branch DO Apr 19, 2018 08:50
[2018-04-19] MEDS: Topiramate 100mg tab ORAL SCH ×2 (10:01→17:35)
[2018-04-19] MEDS: Docusate 100mg cap ORAL SCH ×2 (10:01→17:35)
[2018-04-19 12:00] VITALS: BP 135/87
[2018-04-19 16:00] VITALS: BP 134/86
[2018-04-19 19:45] VITALS: BP 120/79
[2018-04-20] VITALS: BP 106/78
[2018-04-20 04:00] VITALS: BP 144/94
[2018-04-20 07:52] VITALS: BP 108/71
[2018-04-20 09:03] LABS: ANION GAP 15 mmol/L (5-15); BLOOD UREA NITROGEN 19 mg/dL (7-18); CALCIUM 9.1 MG/DL (8.5-10.1); CARBON DIOXIDE 19 MMOL/L (21-32); CHLORIDE 111 MMOL/L (98-107); CREATININE 0.8 MG/DL (0.55-1.30); POTASSIUM 3.2 MMOL/L (3.5-5.1); SODIUM 145 MMOL/L (136-145)
[2018-04-20 09:11] LABS: BASOPHILS % (AUTO) 0.6 % (0.0-2.0); EOSINOPHILS % (AUTO) 1.2 % (0.0-3.0); HEMATOCRIT 41.2 % (42.0-52.0); HEMOGLOBIN 13.9 G/DL (14.2-18.0); LYMPHOCYTES % (AUTO) 25.2 % (20.0-45.0); MEAN CORPUSCULAR VOLUME 86 FL (80-99); PLATELET COUNT 317 K/UL (150-450); RED BLOOD COUNT 4.77 M/UL (4.70-6.10); RED CELL DISTRIBUTION WIDTH 11.2 % (11.6-14.8); WHITE BLOOD COUNT 8.8 K/UL (4.8-10.8)
[2018-04-20] MEDS: D5NS 1,000 ML IV SCH (09:24)
[2018-04-20] MEDS: Docusate 100mg cap ORAL SCH ×2 (09:30→18:19)
[2018-04-20] MEDS ORDERED: Mylanta II UD 30ml ORAL PRN (09:30)
[2018-04-20] MEDS: Topiramate 100mg tab ORAL SCH ×2 (09:31→23:07)
[2018-04-20] MEDS ORDERED: LORazepam Inj 2mg/ml 1ml IVP PRN ×2 (09:45→10:00)
--- NOTE | 2018-04-20 11:41 | Infectious Diseases Prog Note ---
Assessment/Plan Assessment/Plan Assessment/Plan Worsened of mental status compared to the baseline, it appears that the patient has some improvement during this stay. -CT brain: No evidence of acute intracranial hemorrhage. 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 No evidence of infectious process at this time (normal white blood cells, afebrile, no tachycardia or hypertension). -u/a neg, ucx E.coli (colonizer) -Bcx Neg -CXR: no acute diseae -Bipolar disorder. -History of cerebral palsy. -History of seizure disorder. PLAN: - We will continue to monitor the patient off of antibiotics at this point. - f/u cultures (blood). - We will monitor the patient's laboratories, cultures. - If the patient's medical condition worsens due to significant infection based on laboratories, we will start the patient on antibiotic treatment. Subjective Allergies: Coded Allergies: No Known Allergies (Unverified , 04/11/18) Subjective afebrile no leukocytosis off abx Bcx Neg Objective Vital Signs Last 24 Hour Vital Signs Date Time Temp Pulse Resp B/P (MAP) Pulse Ox O2 Delivery O2 Flow Rate FiO2 04/20/18 09:00 Room Air 04/20/18 08:15 103 04/20/18 07:52 98.1 92 21 108/71 (83) 96 04/20/18 04:00 98.1 102 20 144/94 (111) 98 04/20/18 00:00 97.7 91 20 106/78 (87) 97 04/19/18 21:00 Room Air 04/19/18 19:45 98.1 93 20 120/79 (93) 97 04/19/18 16:00 97.9 74 18 134/86 (102) 98 04/19/18 12:00 97.8 66 20 135/87 (103) 98 Height (Feet): 5 Height (Inches): 8.00 Weight (Pounds): 190 Objective HEENT: No pale conjunctivae. No icterus. NECK: No lymphadenopathy. CHEST: Clear. HEART: S1 and S2. ABDOMEN: Soft, nontender. EXTREMITIES: No cyanosis at this time. NEUROLOGIC: Awake, appears to be confused. Laboratory Tests Test 04/20/18 07:04 White Blood Count 8.8 K/UL (4.8-10.8) Red Blood Count 4.77 M/UL (4.70-6.10) Hemoglobin 13.9 G/DL (14.2-18.0) L Hematocrit 41.2 % (42.0-52.0) L Mean Corpuscular Volume 86 FL (80-99) Mean Corpuscular Hemoglobin 29.3 PG (27.0-31.0) Mean Corpuscular Hemoglobin Concent 33.9 G/DL (32.0-36.0) Red Cell Distribution Width 11.2 % (11.6-14.8) L Platelet Count 317 K/UL (150-450) Mean Platelet Volume 5.4 FL (6.5-10.1) L Neutrophils (%) (Auto) 67.0 % (45.0-75.0) Lymphocytes (%) (Auto) 25.2 % (20.0-45.0) Monocytes (%) (Auto) 6.0 % (1.0-10.0) Eosinophils (%) (Auto) 1.2 % (0.0-3.0) Basophils (%) (Auto) 0.6 % (0.0-2.0) Sodium Level 145 MMOL/L (136-145) Potassium Level 3.2 MMOL/L (3.5-5.1) L Chloride Level 111 MMOL/L (98-107) H Carbon Dioxide Level 19 MMOL/L (21-32) L Anion Gap 15 mmol/L (5-15) Blood Urea Nitrogen 19 mg/dL (7-18) H Creatinine 0.8 MG/DL (0.55-1.30) Estimat Glomerular Filtration Rate > 60 mL/min (>60) Glucose Level 131 MG/DL (74-106) H Calcium Level 9.1 MG/DL (8.5-10.1) Current Medications Medications (Trade) Dose Ordered Sig/Con Route PRN Reason Start Time Stop Time Status Last Admin Dose Admin Acetaminophen (Tylenol) 650 mg Q4H PRN ORAL T>100.5 04/20/18 09:30 05/11/18 09:29 Al Hydroxide/Mg Hydroxide (Mylanta II) 30 ml Q6H PRN ORAL dyspepsia 04/20/18 09:30 05/11/18 09:29 Bisacodyl (Dulcolax) 10 mg DAILYPRN PRN RECTAL Constipation 04/20/18 11:00 05/20/18 10:59 UNV Dextrose (Dextrose 50%) 25 ml Q30M PRN IV Hypoglycemia 04/20/18 09:30 05/11/18 09:29 Dextrose (Dextrose 50%) 50 ml Q30M PRN IV hypoglycemia 04/20/18 09:30 05/11/18 09:29 Dextrose/Sodium Chloride 1,000 ml @ 70 mls/hr [id number] IV 04/20/18 10:00 05/20/18 09:59 04/20/18 09:24 Docusate Sodium (Colace) 100 mg TWICE A DAY ORAL 04/20/18 09:30 05/18/18 09:29 04/20/18 09:30 Levetiracetam (Keppra) 1,500 mg Q12HR ORAL 04/20/18 09:30 05/11/18 09:29 04/20/18 09:30 Lorazepam (Ativan 2mg/ml 1ml) 1 mg Q6H PRN IVP For Seizures 04/20/18 10:00 04/21/18 09:59 04/20/18 10:13 Ondansetron HCl (Zofran) 4 mg Q6H PRN ORAL Nausea & Vomiting 04/20/18 10:15 05/13/18 10:14 UNV Polyethylene Glycol (Miralax) 17 gm HSPRN PRN ORAL Constipation 04/20/18 12:45 05/11/18 12:44 UNV Risperidone (RisperDAL) 2 mg TID ORAL 04/20/18 09:30 05/11/18 09:29 04/20/18 09:32 Topiramate (Topamax) 100 mg Q12HR ORAL 04/20/18 09:30 05/20/18 09:29 04/20/18 09:31 Tressa Sanchez M.D. Apr 20, 2018 11:41
[2018-04-20 11:54] VITALS: BP 102/68
[2018-04-20] MEDS ORDERED: Miralax 17gm pkt ORAL PRN ×2 (12:45→17:00)
--- NOTE | 2018-04-20 13:52 | Nephrology Progress Note ---
Assessment/Plan Plan [id number] full note dictated Objective Objective Last 24 Hour Vital Signs Date Time Temp Pulse Resp B/P (MAP) Pulse Ox O2 Delivery O2 Flow Rate FiO2 04/20/18 11:54 98.2 70 18 102/68 (79) 97 04/20/18 09:00 Room Air 04/20/18 08:15 103 04/20/18 07:52 98.1 92 21 108/71 (83) 96 04/20/18 04:00 98.1 102 20 144/94 (111) 98 04/20/18 00:00 97.7 91 20 106/78 (87) 97 04/19/18 21:00 Room Air 04/19/18 19:45 98.1 93 20 120/79 (93) 97 04/19/18 16:00 97.9 74 18 134/86 (102) 98 Intake and Output 04/19/18 04/20/18 18:59 06:59 Intake Total 1680 ml 120 ml Balance 1680 ml 120 ml Intake Oral 1680 ml 120 ml # Voids 6 2 # Bowel Movements 2 Laboratory Tests 04/20/18 07:04: White Blood Count 8.8, Red Blood Count 4.77, Hemoglobin 13.9L, Hematocrit 41.2L , Mean Corpuscular Volume 86, Mean Corpuscular Hemoglobin 29.3, Mean Corpuscular Hemoglobin Concent 33.9, Red Cell Distribution Width 11.2L, Platelet Count 317, Mean Platelet Volume 5.4L, Neutrophils (%) (Auto) 67.0, Lymphocytes (%) (Auto) 25.2, Monocytes (%) (Auto) 6.0, Eosinophils (%) (Auto) 1.2, Basophils (%) (Auto) 0.6, Sodium Level 145, Potassium Level 3.2L, Chloride Level 111H, Carbon Dioxide Level 19L, Anion Gap 15, Blood Urea Nitrogen 19H, Creatinine 0.8, Estimat Glomerular Filtration Rate > 60, Glucose Level 131H, Calcium Level 9.1 Height (Feet): 5 Height (Inches): 8.00 Weight (Pounds): 190 Marley Arango MD Apr 20, 2018 13:52
--- NOTE | 2018-04-20 14:58 | General Progress Note ---
Assessment/Plan Problem List: (1) Schizoaffective disorder, bipolar type ICD Codes: F25.0 - Schizoaffective disorder, bipolar type SNOMED: 24723344 (2) Violent behavior ICD Codes: R45.6 - Violent behavior SNOMED: 518696161 (3) Anemia ICD Codes: D64.9 - Anemia, unspecified SNOMED: 378312305 (4) Delirium ICD Codes: R41.0 - Disorientation, unspecified SNOMED: 5596726 (5) Seizure ICD Codes: R56.9 - Unspecified convulsions SNOMED: 80776252 Status: unchanged Assessment/Plan ot pt diet seizure control neuro tanna eval cbc bmp am psyc tx /transfer Subjective Constitutional: Reports: weakness Allergies: Coded Allergies: No Known Allergies (Unverified , 04/11/18) All Systems: reviewed and negative except above Subjective o2nc sleepy calm Objective Last 24 Hour Vital Signs Date Time Temp Pulse Resp B/P (MAP) Pulse Ox O2 Delivery O2 Flow Rate FiO2 04/20/18 11:54 98.2 70 18 102/68 (79) 97 04/20/18 11:53 70 04/20/18 09:00 Room Air 04/20/18 08:15 103 04/20/18 07:52 98.1 92 21 108/71 (83) 96 04/20/18 04:00 98.1 102 20 144/94 (111) 98 04/20/18 00:00 97.7 91 20 106/78 (87) 97 04/19/18 21:00 Room Air 04/19/18 19:45 98.1 93 20 120/79 (93) 97 04/19/18 16:00 97.9 74 18 134/86 (102) 98 Intake and Output 04/19/18 04/20/18 18:59 06:59 Intake Total 1680 ml 120 ml Balance 1680 ml 120 ml Intake Oral 1680 ml 120 ml # Voids 6 2 # Bowel Movements 2 Laboratory Tests 04/20/18 07:04: White Blood Count 8.8, Red Blood Count 4.77, Hemoglobin 13.9L, Hematocrit 41.2L , Mean Corpuscular Volume 86, Mean Corpuscular Hemoglobin 29.3, Mean Corpuscular Hemoglobin Concent 33.9, Red Cell Distribution Width 11.2L, Platelet Count 317, Mean Platelet Volume 5.4L, Neutrophils (%) (Auto) 67.0, Lymphocytes (%) (Auto) 25.2, Monocytes (%) (Auto) 6.0, Eosinophils (%) (Auto) 1.2, Basophils (%) (Auto) 0.6, Sodium Level 145, Potassium Level 3.2L, Chloride Level 111H, Carbon Dioxide Level 19L, Anion Gap 15, Blood Urea Nitrogen 19H, Creatinine 0.8, Estimat Glomerular Filtration Rate > 60, Glucose Level 131H, Calcium Level 9.1 Height (Feet): 5 Height (Inches): 8.00 Weight (Pounds): 190 General Appearance: lethargic EENT: normal ENT inspection Neck: normal alignment Cardiovascular: normal peripheral pulses, normal rate, regular rhythm Respiratory/Chest: chest wall non-tender, lungs clear, normal breath sounds Abdomen: normal bowel sounds, non tender, soft Extremities: normal inspection Edema: no edema noted Arm (L), no edema noted Arm (R), no edema noted Leg (L), no edema noted Leg (R), no edema noted Pedal (L), no edema noted Pedal (R), no edema noted Generalized Neurologic: motor weakness Skin: normal pigmentation, warm/dry Jareth Branch DO Apr 20, 2018 14:58
[2018-04-20 15:53] VITALS: BP 126/61
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
--- NOTE | 2018-04-20 22:30 | Consultation ---
DATE OF CONSULTATION: 04/20/2018 NEPHROLOGY CONSULTATION CONSULTING PHYSICIAN: Marley Arango M.D. REFERRING PHYSICIAN: Jareth Branch D.O. REASON FOR CONSULTATION: Hypokalemia. HISTORY OF PRESENT ILLNESS: The patient is a 48-year-old male with multiple medical problems including history of seizure, history of bipolar disease, and cerebral palsy who was brought in to [facility] for change in altered mental status. The patient was seen, admitted, and started on IV fluids over the course of hospital admission. The patient had one episode of seizure and transferred from the med/surg bed to monitored bed. The patient continued to be hypokalemic. I was called for management of renal disease and electrolyte imbalance. PAST MEDICAL HISTORY: History of cerebral palsy, history of hypertension, and history of bipolar disease. SOCIAL HISTORY: He lives at alf. There is no history of tobacco, alcohol, or drug use. ALLERGIES: No known drug allergies. MEDICATIONS: Medications are includin. Zofran 4 mg p.r.n. 2. Ativan p.r.n. agitation. 3. Colace 100 p.o. daily. 4. Keppra 1500 mg daily. 5. Risperdal 2 mg p.r.n. 6. Topamax 100 mg daily. REVIEW OF SYSTEMS: Unable to obtain due to the patient's condition and mental status. At this point, the patient is postictal and not responsive. PHYSICAL EXAMINATION: VITAL SIGNS: The patient had temperature of 97, blood pressure of 106/78, and pulse oximetry of 91%. HEAD AND NECK: No JVP. No LAD. No thyromegaly. Extraocular movements intact. Pupils are reactive to light and accommodation. LUNGS: Clear to auscultation. CARDIAC: Regular rate and rhythm. S1 and S2. No murmur. No rub. ABDOMEN: Soft, nontender, and nondistended. EXTREMITIES: No edema. No clubbing. No cyanosis. LABORATORY AND DIAGNOSTIC DATA: The patient has sodium 145, potassium 3.2, 111 chloride, 19 bicarbonate, BUN is 19, creatinine of 0.8, and calcium of 9.1. Total protein of 7.1. Albumin of 4. CBC revealed WBC count of 8.8, hemoglobin of 13.9, hematocrit of 41.2, and platelet count of 317,000. UA revealed specific gravity of 1.010, nitrite positive, wbc's 0 to 2, and bacteria many. ASSESSMENT: 1. Hypokalemia, GI versus renal loss. 2. Hypomagnesemia. 3. Dehydration. 4. Recurrent seizure. 5. History of CP. 6. Mild acidosis. PLAN: Replace the potassium. Check the magnesium. Start the patient on IV fluids while the patient is NPO. Monitor renal function and electrolytes closely. Again, I would like to thank, Dr. Jareth Branch, for allowing me to participate in the care of this patient. Marley Arango M.D. DR: DELISA JOB#: [id number] CC:
[2018-04-20] MEDS ORDERED: levETIRAcetam 500mg vial IV ONE (22:47)
[2018-04-20] MEDS ORDERED: [UNRECOGNIZED DRUG - OTHER] IVPB ONE (23:04)
[2018-04-20] MEDS ORDERED: LEVETIRACETAM IVPB ONE (23:04)
[2018-04-20] MEDS: levETIRAcetam 1,500 MG in D5W 95 ML IV SCH (23:12)
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
[2018-04-21] VITALS: BP 111/67
[2018-04-21] MEDS: D5NS 1,000 ML IV SCH ×2 (00:18→15:12)
[2018-04-21 04:00] VITALS: BP 125/66
[2018-04-21 08:05] VITALS: BP 115/71
[2018-04-21] MEDS: Topiramate 100mg tab ORAL SCH ×2 (08:42→21:19)
[2018-04-21] MEDS: levETIRAcetam 1,500 MG in D5W 95 ML IV SCH ×2 (08:42→21:19)
[2018-04-21] MEDS: Docusate 100mg cap ORAL SCH ×2 (08:43→17:04)
--- NOTE | 2018-04-21 09:44 | Nephrology Progress Note ---
Assessment/Plan Assessment 1. Hypokalemia, GI versus renal loss. 2. Hypomagnesemia. 3. Dehydration. 4. Recurrent seizure. 5. History of CP. 6. Mild acidosis. Plan continue current ivf replace k start diet diet monitoring renal function closely avoid NSAID Objective Objective Last 24 Hour Vital Signs Date Time Temp Pulse Resp B/P (MAP) Pulse Ox O2 Delivery O2 Flow Rate FiO2 04/21/18 08:05 99.0 90 20 115/71 (86) 99 04/21/18 04:00 77 04/21/18 04:00 98.0 69 19 125/66 (85) 99 04/21/18 00:00 98.3 68 18 111/67 (82) 97 04/20/18 20:00 Room Air 04/20/18 20:00 98.1 60 19 96 04/20/18 15:53 97.7 89 21 126/61 (82) 96 04/20/18 15:15 88 04/20/18 11:54 98.2 70 18 102/68 (79) 97 04/20/18 11:53 70 Intake and Output 04/20/18 04/21/18 19:00 07:00 Intake Total 1072 ml 140 ml Balance 1072 ml 140 ml IV Total 1072 ml 140 ml # Voids 1 3 # Bowel Movements 1 1 Height (Feet): 5 Height (Inches): 8.00 Weight (Pounds): 190 Objective HEAD AND NECK: No JVP. No LAD. No thyromegaly. Extraocular movements intact. Pupils are reactive to light and accommodation. LUNGS: Clear to auscultation. CARDIAC: Regular rate and rhythm. S1 and S2. No murmur. No rub. ABDOMEN: Soft, nontender, and nondistended. EXTREMITIES: No edema. No clubbing. No cyanosis. Marley Arango MD Apr 21, 2018 09:43
[2018-04-21 10:23] LABS: BASOPHILS % (AUTO) 0.7 % (0.0-2.0); EOSINOPHILS % (AUTO) 1.5 % (0.0-3.0); HEMOGLOBIN 13.6 G/DL (14.2-18.0); LYMPHOCYTES % (AUTO) 17.2 % (20.0-45.0); MEAN CORPUSCULAR VOLUME 88 FL (80-99); MONOCYTES % (AUTO) 5.7 % (1.0-10.0); PLATELET COUNT 256 K/UL (150-450); RED BLOOD COUNT 4.53 M/UL (4.70-6.10); RED CELL DISTRIBUTION WIDTH 10.9 % (11.6-14.8); WHITE BLOOD COUNT 6.8 K/UL (4.8-10.8)
[2018-04-21 10:46] LABS: ANION GAP 15 mmol/L (5-15); BLOOD UREA NITROGEN 14 mg/dL (7-18); CARBON DIOXIDE 18 MMOL/L (21-32); CHLORIDE 110 MMOL/L (98-107); CREATININE 0.7 MG/DL (0.55-1.30); POTASSIUM 3.5 MMOL/L (3.5-5.1); SODIUM 143 MMOL/L (136-145)
[2018-04-21 11:57] VITALS: BP 129/79
--- NOTE | 2018-04-21 12:32 | Infectious Diseases Prog Note ---
Assessment/Plan Assessment/Plan Assessment/Plan Worsened of mental status compared to the baseline, it appears that the patient has some improvement during this stay. -CT brain: No evidence of acute intracranial hemorrhage. 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 No evidence of infectious process at this time (normal white blood cells, afebrile, no tachycardia or hypertension). -u/a neg, ucx E.coli (colonizer) -Bcx Neg -CXR: no acute diseae -Bipolar disorder. -History of cerebral palsy. -History of seizure disorder. PLAN: - We will continue to monitor the patient off of antibiotics at this point. - f/u cultures (blood). - We will monitor the patient's laboratories, cultures. - If the patient's medical condition worsens due to significant infection based on laboratories, we will start the patient on antibiotic treatment. Subjective Allergies: Coded Allergies: No Known Allergies (Unverified , 04/11/18) Subjective afebrile no leukocytosis off abx Bcx Neg Objective Vital Signs Last 24 Hour Vital Signs Date Time Temp Pulse Resp B/P (MAP) Pulse Ox O2 Delivery O2 Flow Rate FiO2 04/21/18 11:57 98.3 84 20 129/79 (96) 97 04/21/18 09:00 Room Air 04/21/18 08:05 99.0 90 20 115/71 (86) 99 04/21/18 08:00 88 04/21/18 04:00 77 04/21/18 04:00 98.0 69 19 125/66 (85) 99 04/21/18 00:00 98.3 68 18 111/67 (82) 97 04/20/18 20:00 Room Air 04/20/18 20:00 98.1 60 19 96 04/20/18 15:53 97.7 89 21 126/61 (82) 96 04/20/18 15:15 88 Height (Feet): 5 Height (Inches): 8.00 Weight (Pounds): 190 Objective HEENT: No pale conjunctivae. No icterus. NECK: No lymphadenopathy. CHEST: Clear. HEART: S1 and S2. ABDOMEN: Soft, nontender. EXTREMITIES: No cyanosis at this time. NEUROLOGIC: Awake, appears to be confused. Laboratory Tests Test 04/21/18 09:40 White Blood Count 6.8 K/UL (4.8-10.8) Red Blood Count 4.53 M/UL (4.70-6.10) L Hemoglobin 13.6 G/DL (14.2-18.0) L Hematocrit 40.0 % (42.0-52.0) L Mean Corpuscular Volume 88 FL (80-99) Mean Corpuscular Hemoglobin 30.1 PG (27.0-31.0) Mean Corpuscular Hemoglobin Concent 34.1 G/DL (32.0-36.0) Red Cell Distribution Width 10.9 % (11.6-14.8) L Platelet Count 256 K/UL (150-450) Mean Platelet Volume 5.7 FL (6.5-10.1) L Neutrophils (%) (Auto) 75.0 % (45.0-75.0) Lymphocytes (%) (Auto) 17.2 % (20.0-45.0) L Monocytes (%) (Auto) 5.7 % (1.0-10.0) Eosinophils (%) (Auto) 1.5 % (0.0-3.0) Basophils (%) (Auto) 0.7 % (0.0-2.0) Sodium Level 143 MMOL/L (136-145) Potassium Level 3.5 MMOL/L (3.5-5.1) Chloride Level 110 MMOL/L (98-107) H Carbon Dioxide Level 18 MMOL/L (21-32) L Anion Gap 15 mmol/L (5-15) Blood Urea Nitrogen 14 mg/dL (7-18) Creatinine 0.7 MG/DL (0.55-1.30) Estimat Glomerular Filtration Rate > 60 mL/min (>60) Glucose Level 131 MG/DL (74-106) H Calcium Level 9.0 MG/DL (8.5-10.1) Current Medications Medications (Trade) Dose Ordered Sig/Con Route PRN Reason Start Time Stop Time Status Last Admin Dose Admin Acetaminophen (Tylenol) 650 mg Q4H PRN ORAL T>100.5 04/20/18 09:30 05/11/18 09:29 Al Hydroxide/Mg Hydroxide (Mylanta II) 30 ml Q6H PRN ORAL dyspepsia 04/20/18 09:30 05/11/18 09:29 Bisacodyl (Dulcolax) 10 mg DAILYPRN PRN RECTAL Constipation 04/20/18 17:00 05/20/18 16:59 Dextrose (Dextrose 50%) 25 ml Q30M PRN IV Hypoglycemia 04/20/18 09:30 05/11/18 09:29 Dextrose (Dextrose 50%) 50 ml Q30M PRN IV hypoglycemia 04/20/18 09:30 05/11/18 09:29 Dextrose/Sodium Chloride 1,000 ml @ 70 mls/hr [id number] IV 04/20/18 10:00 05/20/18 09:59 04/21/18 00:18 Docusate Sodium (Colace) 100 mg TWICE A DAY ORAL 04/20/18 09:30 05/18/18 09:29 04/21/18 08:43 Levetiracetam 1500 mg/Dextrose 110 ml @ 440 mls/hr Q12HR IV 04/20/18 23:00 05/20/18 22:59 04/21/18 08:42 Ondansetron HCl (Zofran) 4 mg Q6H PRN ORAL Nausea & Vomiting 04/20/18 10:15 05/13/18 10:14 Polyethylene Glycol (Miralax) 17 gm DAILYPRN PRN ORAL Constipation 04/20/18 17:00 05/20/18 16:59 Risperidone (RisperDAL) 2 mg TID ORAL 04/20/18 09:30 05/11/18 09:29 04/21/18 08:43 Topiramate (Topamax) 100 mg Q12HR ORAL 04/20/18 09:30 05/20/18 09:29 04/21/18 08:42 Tressa Sanchez M.D. Apr 21, 2018 12:32
--- NOTE | 2018-04-21 14:06 | General Progress Note ---
Assessment/Plan Problem List: (1) Schizoaffective disorder, bipolar type ICD Codes: F25.0 - Schizoaffective disorder, bipolar type SNOMED: 16084747 (2) Violent behavior ICD Codes: R45.6 - Violent behavior SNOMED: 475920443 (3) Anemia ICD Codes: D64.9 - Anemia, unspecified SNOMED: 412235259 (4) Delirium ICD Codes: R41.0 - Disorientation, unspecified SNOMED: 7564519 (5) Seizure ICD Codes: R56.9 - Unspecified convulsions SNOMED: 63908341 Status: unchanged Assessment/Plan ot pt diet seizure control neuro tanna eval cbc bmp am snf if psyc and id clear Subjective Constitutional: Reports: weakness Allergies: Coded Allergies: No Known Allergies (Unverified , 04/11/18) All Systems: reviewed and negative except above Subjective o2nc sleepy calm Objective Last 24 Hour Vital Signs Date Time Temp Pulse Resp B/P (MAP) Pulse Ox O2 Delivery O2 Flow Rate FiO2 04/21/18 12:00 90 04/21/18 11:57 98.3 84 20 129/79 (96) 97 04/21/18 09:00 Room Air 04/21/18 08:05 99.0 90 20 115/71 (86) 99 04/21/18 08:00 88 04/21/18 04:00 77 04/21/18 04:00 98.0 69 19 125/66 (85) 99 04/21/18 00:00 98.3 68 18 111/67 (82) 97 04/20/18 20:00 Room Air 04/20/18 20:00 98.1 60 19 96 04/20/18 15:53 97.7 89 21 126/61 (82) 96 04/20/18 15:15 88 Intake and Output 04/20/18 04/21/18 19:00 07:00 Intake Total 1072 ml 140 ml Balance 1072 ml 140 ml IV Total 1072 ml 140 ml # Voids 1 3 # Bowel Movements 1 1 Laboratory Tests 04/21/18 09:40: White Blood Count 6.8, Red Blood Count 4.53L, Hemoglobin 13.6L, Hematocrit 40.0L , Mean Corpuscular Volume 88, Mean Corpuscular Hemoglobin 30.1, Mean Corpuscular Hemoglobin Concent 34.1, Red Cell Distribution Width 10.9L, Platelet Count 256, Mean Platelet Volume 5.7L, Neutrophils (%) (Auto) 75.0, Lymphocytes (%) (Auto) 17.2L, Monocytes (%) (Auto) 5.7, Eosinophils (%) (Auto) 1.5, Basophils (%) (Auto) 0.7, Sodium Level 143, Potassium Level 3.5, Chloride Level 110H, Carbon Dioxide Level 18L, Anion Gap 15, Blood Urea Nitrogen 14, Creatinine 0.7, Estimat Glomerular Filtration Rate > 60, Glucose Level 131H, Calcium Level 9.0 Height (Feet): 5 Height (Inches): 8.00 Weight (Pounds): 190 General Appearance: lethargic EENT: normal ENT inspection Neck: normal alignment Cardiovascular: normal peripheral pulses, normal rate, regular rhythm Respiratory/Chest: chest wall non-tender, lungs clear, normal breath sounds Abdomen: normal bowel sounds, non tender, soft Extremities: normal inspection Edema: no edema noted Arm (L), no edema noted Arm (R), no edema noted Leg (L), no edema noted Leg (R), no edema noted Pedal (L), no edema noted Pedal (R), no edema noted Generalized Neurologic: motor weakness Skin: normal pigmentation, warm/dry Jareth Branch DO Apr 21, 2018 14:06
[2018-04-21 16:03] VITALS: BP 115/76
[2018-04-21] MEDS: LORazepam 1mg tab ORAL PRN (17:04)
[2018-04-21 20:00] VITALS: BP 120/81
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
[2018-04-22] VITALS: BP 122/67
[2018-04-22 04:00] VITALS: BP 107/65
[2018-04-22] MEDS: D5NS 1,000 ML IV SCH ×2 (05:13→18:25)
[2018-04-22 07:55] LABS: BASOPHILS % (AUTO) 0.8 % (0.0-2.0); HEMATOCRIT 37.2 % (42.0-52.0); HEMOGLOBIN 12.7 G/DL (14.2-18.0); LYMPHOCYTES % (AUTO) 37.3 % (20.0-45.0); MEAN CORPUSCULAR VOLUME 88 FL (80-99); MONOCYTES % (AUTO) 8.1 % (1.0-10.0); NEUTROPHILS % (AUTO) 50.8 % (45.0-75.0); PLATELET COUNT 242 K/UL (150-450); RED BLOOD COUNT 4.22 M/UL (4.70-6.10); WHITE BLOOD COUNT 6.8 K/UL (4.8-10.8)
[2018-04-22 08:00] VITALS: BP 103/60
[2018-04-22 08:09] LABS: ANION GAP 13 mmol/L (5-15); BLOOD UREA NITROGEN 9 mg/dL (7-18); CALCIUM 8.6 MG/DL (8.5-10.1); CARBON DIOXIDE 16 MMOL/L (21-32); CHLORIDE 108 MMOL/L (98-107); CREATININE 0.7 MG/DL (0.55-1.30); POTASSIUM 3.3 MMOL/L (3.5-5.1); SODIUM 137 MMOL/L (136-145)
[2018-04-22] MEDS: Docusate 100mg cap ORAL SCH ×3 (09:03→18:00)
[2018-04-22] MEDS: Topiramate 100mg tab ORAL SCH ×4 (09:03→22:00)
[2018-04-22] MEDS: levETIRAcetam 1,500 MG in D5W 95 ML IV SCH ×3 (09:51→21:57)
[2018-04-22 12:00] VITALS: BP 105/62
--- NOTE | 2018-04-22 12:39 | Infectious Diseases Prog Note ---
Assessment/Plan Assessment/Plan Assessment/Plan Worsened of mental status compared to the baseline, it appears that the patient has some improvement during this stay. -CT brain: No evidence of acute intracranial hemorrhage. 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 No evidence of infectious process at this time (normal white blood cells, afebrile, no tachycardia or hypertension). -u/a neg, ucx E.coli (colonizer) -Bcx Neg -CXR: no acute diseae -Bipolar disorder. -History of cerebral palsy. -History of seizure disorder. PLAN: - We will continue to monitor the patient off of antibiotics at this point. - f/u cultures (blood). - We will monitor the patient's laboratories, cultures. - If the patient's medical condition worsens due to significant infection based on laboratories, we will start the patient on antibiotic treatment. Subjective Allergies: Coded Allergies: No Known Allergies (Unverified , 04/11/18) Subjective afebrile no leukocytosis off abx Bcx Neg Objective Vital Signs Last 24 Hour Vital Signs Date Time Temp Pulse Resp B/P (MAP) Pulse Ox O2 Delivery O2 Flow Rate FiO2 04/22/18 09:00 Room Air 04/22/18 08:00 97.5 100 18 103/60 (74) 98 04/22/18 08:00 109 04/22/18 04:07 109 04/22/18 04:00 98.2 102 18 107/65 (79) 98 04/22/18 00:11 86 04/22/18 00:00 97.9 100 18 122/67 (85) 97 04/21/18 21:00 Room Air 04/21/18 20:00 98.4 104 18 120/81 (94) 97 04/21/18 19:52 92 04/21/18 16:03 98.6 102 20 115/76 (89) 98 04/21/18 16:00 91 Height (Feet): 5 Height (Inches): 8.00 Weight (Pounds): 178 Objective HEENT: No pale conjunctivae. No icterus. NECK: No lymphadenopathy. CHEST: Clear. HEART: S1 and S2. ABDOMEN: Soft, nontender. EXTREMITIES: No cyanosis at this time. NEUROLOGIC: Awake, appears to be confused. Laboratory Tests Test 04/22/18 06:45 White Blood Count 6.8 K/UL (4.8-10.8) Red Blood Count 4.22 M/UL (4.70-6.10) L Hemoglobin 12.7 G/DL (14.2-18.0) L Hematocrit 37.2 % (42.0-52.0) L Mean Corpuscular Volume 88 FL (80-99) Mean Corpuscular Hemoglobin 30.1 PG (27.0-31.0) Mean Corpuscular Hemoglobin Concent 34.2 G/DL (32.0-36.0) Red Cell Distribution Width 11.0 % (11.6-14.8) L Platelet Count 242 K/UL (150-450) Mean Platelet Volume 5.5 FL (6.5-10.1) L Neutrophils (%) (Auto) 50.8 % (45.0-75.0) Lymphocytes (%) (Auto) 37.3 % (20.0-45.0) Monocytes (%) (Auto) 8.1 % (1.0-10.0) Eosinophils (%) (Auto) 3.0 % (0.0-3.0) Basophils (%) (Auto) 0.8 % (0.0-2.0) Sodium Level 137 MMOL/L (136-145) Potassium Level 3.3 MMOL/L (3.5-5.1) L Chloride Level 108 MMOL/L (98-107) H Carbon Dioxide Level 16 MMOL/L (21-32) L Anion Gap 13 mmol/L (5-15) Blood Urea Nitrogen 9 mg/dL (7-18) Creatinine 0.7 MG/DL (0.55-1.30) Estimat Glomerular Filtration Rate > 60 mL/min (>60) Glucose Level 122 MG/DL (74-106) H Calcium Level 8.6 MG/DL (8.5-10.1) Current Medications Medications (Trade) Dose Ordered Sig/Con Route PRN Reason Start Time Stop Time Status Last Admin Dose Admin Acetaminophen (Tylenol) 650 mg Q4H PRN ORAL T>100.5 04/20/18 09:30 05/11/18 09:29 Al Hydroxide/Mg Hydroxide (Mylanta II) 30 ml Q6H PRN ORAL dyspepsia 04/20/18 09:30 05/11/18 09:29 Bisacodyl (Dulcolax) 10 mg DAILYPRN PRN RECTAL Constipation 04/20/18 17:00 05/20/18 16:59 Dextrose (Dextrose 50%) 25 ml Q30M PRN IV Hypoglycemia 04/20/18 09:30 05/11/18 09:29 Dextrose (Dextrose 50%) 50 ml Q30M PRN IV hypoglycemia 04/20/18 09:30 05/11/18 09:29 Dextrose/Sodium Chloride 1,000 ml @ 70 mls/hr [id number] IV 04/20/18 10:00 05/20/18 09:59 04/22/18 05:13 Docusate Sodium (Colace) 100 mg TWICE A DAY ORAL 04/20/18 09:30 05/18/18 09:29 04/22/18 09:03 Levetiracetam 1500 mg/Dextrose 110 ml @ 440 mls/hr Q12HR IV 04/20/18 23:00 05/20/18 22:59 04/22/18 09:51 Lorazepam (Ativan) 1 mg Q6H PRN ORAL For Anxiety 04/21/18 15:45 04/28/18 15:44 04/21/18 17:04 Ondansetron HCl (Zofran) 4 mg Q6H PRN ORAL Nausea & Vomiting 04/20/18 10:15 05/13/18 10:14 Polyethylene Glycol (Miralax) 17 gm DAILYPRN PRN ORAL Constipation 04/20/18 17:00 05/20/18 16:59 Potassium Chloride (K-Dur) 40 meq ONCE ORAL 04/22/18 11:42 04/22/18 12:42 04/22/18 11:56 Risperidone (RisperDAL) 2 mg TID ORAL 04/20/18 09:30 05/11/18 09:29 04/22/18 09:04 Topiramate (Topamax) 100 mg Q12HR ORAL 04/20/18 09:30 05/20/18 09:29 04/22/18 09:03 Tressa Sanchez M.D. Apr 22, 2018 12:39
--- NOTE | 2018-04-22 14:58 | General Progress Note ---
Assessment/Plan Problem List: (1) Schizoaffective disorder, bipolar type ICD Codes: F25.0 - Schizoaffective disorder, bipolar type SNOMED: 96655403 (2) Violent behavior ICD Codes: R45.6 - Violent behavior SNOMED: 618662291 (3) Anemia ICD Codes: D64.9 - Anemia, unspecified SNOMED: 238882433 (4) Delirium ICD Codes: R41.0 - Disorientation, unspecified SNOMED: 5410121 (5) Seizure ICD Codes: R56.9 - Unspecified convulsions SNOMED: 75334350 Status: unchanged Assessment/Plan ot pt diet seizure control neuro tanna eval cbc bmp am dc to psyc if all clear Subjective Constitutional: Reports: weakness Allergies: Coded Allergies: No Known Allergies (Unverified , 04/11/18) All Systems: reviewed and negative except above Subjective o2nc sleepy calm Objective Last 24 Hour Vital Signs Date Time Temp Pulse Resp B/P (MAP) Pulse Ox O2 Delivery O2 Flow Rate FiO2 04/22/18 12:00 97.4 100 18 105/62 (76) 97 04/22/18 09:00 Room Air 04/22/18 08:00 97.5 100 18 103/60 (74) 98 04/22/18 08:00 109 04/22/18 04:07 109 04/22/18 04:00 98.2 102 18 107/65 (79) 98 04/22/18 00:11 86 04/22/18 00:00 97.9 100 18 122/67 (85) 97 04/21/18 21:00 Room Air 04/21/18 20:00 98.4 104 18 120/81 (94) 97 04/21/18 19:52 92 04/21/18 16:03 98.6 102 20 115/76 (89) 98 04/21/18 16:00 91 Intake and Output 04/21/18 04/22/18 19:00 07:00 Intake Total 1520 ml Balance 1520 ml Intake Oral 710 ml IV Total 810 ml # Voids 3 3 # Bowel Movements 1 2 Laboratory Tests 04/22/18 06:45: White Blood Count 6.8, Red Blood Count 4.22L, Hemoglobin 12.7L, Hematocrit 37.2L , Mean Corpuscular Volume 88, Mean Corpuscular Hemoglobin 30.1, Mean Corpuscular Hemoglobin Concent 34.2, Red Cell Distribution Width 11.0L, Platelet Count 242, Mean Platelet Volume 5.5L, Neutrophils (%) (Auto) 50.8, Lymphocytes (%) (Auto) 37.3, Monocytes (%) (Auto) 8.1, Eosinophils (%) (Auto) 3.0, Basophils (%) (Auto) 0.8, Sodium Level 137, Potassium Level 3.3L, Chloride Level 108H, Carbon Dioxide Level 16L, Anion Gap 13, Blood Urea Nitrogen 9, Creatinine 0.7, Estimat Glomerular Filtration Rate > 60, Glucose Level 122H, Calcium Level 8.6 Height (Feet): 5 Height (Inches): 8.00 Weight (Pounds): 178 General Appearance: lethargic EENT: normal ENT inspection Neck: normal alignment Cardiovascular: normal peripheral pulses, normal rate, regular rhythm Respiratory/Chest: chest wall non-tender, lungs clear, normal breath sounds Abdomen: normal bowel sounds, non tender, soft Extremities: normal inspection Edema: no edema noted Arm (L), no edema noted Arm (R), no edema noted Leg (L), no edema noted Leg (R), no edema noted Pedal (L), no edema noted Pedal (R), no edema noted Generalized Neurologic: motor weakness Skin: normal pigmentation, warm/dry Jareth Branch DO Apr 22, 2018 14:58
[2018-04-22 16:00] VITALS: BP 128/86
--- NOTE | 2018-04-22 16:35 | Nephrology Progress Note ---
Assessment/Plan Assessment 1. Hypokalemia, GI versus renal loss. 2. Hypomagnesemia. 3. Dehydration. 4. Recurrent seizure. 5. History of CP. 6. Mild acidosis. Plan continue current ivf replace k monitoring renal function closely avoid NSAID Subjective Constitutional: Reports: no symptoms HEENT: Reports: no symptoms Genitourinary: Reports: no symptoms Neurologic/Psychiatric: Reports: no symptoms Subjective no changes in MS Objective Objective Last 24 Hour Vital Signs Date Time Temp Pulse Resp B/P (MAP) Pulse Ox O2 Delivery O2 Flow Rate FiO2 04/22/18 12:00 97.4 100 18 105/62 (76) 97 04/22/18 09:00 Room Air 04/22/18 08:00 97.5 100 18 103/60 (74) 98 04/22/18 08:00 109 04/22/18 04:07 109 04/22/18 04:00 98.2 102 18 107/65 (79) 98 04/22/18 00:11 86 04/22/18 00:00 97.9 100 18 122/67 (85) 97 04/21/18 21:00 Room Air 04/21/18 20:00 98.4 104 18 120/81 (94) 97 04/21/18 19:52 92 Intake and Output 04/21/18 04/22/18 19:00 07:00 Intake Total 1520 ml Balance 1520 ml Intake Oral 710 ml IV Total 810 ml # Voids 3 3 # Bowel Movements 1 2 Laboratory Tests 04/22/18 06:45: White Blood Count 6.8, Red Blood Count 4.22L, Hemoglobin 12.7L, Hematocrit 37.2L , Mean Corpuscular Volume 88, Mean Corpuscular Hemoglobin 30.1, Mean Corpuscular Hemoglobin Concent 34.2, Red Cell Distribution Width 11.0L, Platelet Count 242, Mean Platelet Volume 5.5L, Neutrophils (%) (Auto) 50.8, Lymphocytes (%) (Auto) 37.3, Monocytes (%) (Auto) 8.1, Eosinophils (%) (Auto) 3.0, Basophils (%) (Auto) 0.8, Sodium Level 137, Potassium Level 3.3L, Chloride Level 108H, Carbon Dioxide Level 16L, Anion Gap 13, Blood Urea Nitrogen 9, Creatinine 0.7, Estimat Glomerular Filtration Rate > 60, Glucose Level 122H, Calcium Level 8.6 Height (Feet): 5 Height (Inches): 8.00 Weight (Pounds): 178 Objective HEAD AND NECK: No JVP. No LAD. No thyromegaly. Extraocular movements intact. Pupils are reactive to light and accommodation. LUNGS: Clear to auscultation. CARDIAC: Regular rate and rhythm. S1 and S2. No murmur. No rub. ABDOMEN: Soft, nontender, and nondistended. EXTREMITIES: No edema. No clubbing. No cyanosis. Marley Aarngo MD Apr 22, 2018 16:35
[2018-04-22] MEDS: LORazepam 1mg tab ORAL PRN ×2 (16:40→23:32)
[2018-04-22] MEDS ORDERED: Mylanta II UD 30ml ORAL PRN (17:40)
[2018-04-22] MEDS ORDERED: Miralax 17gm pkt ORAL PRN (17:41)
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
[2018-04-22 20:00] VITALS: BP 135/77
[2018-04-23] VITALS: BP 135/77
[2018-04-23 04:00] VITALS: BP 105/71
[2018-04-23 06:38] LABS: BASOPHILS % (AUTO) 0.6 % (0.0-2.0); EOSINOPHILS % (AUTO) 2.9 % (0.0-3.0); HEMOGLOBIN 12.5 G/DL (14.2-18.0); LYMPHOCYTES % (AUTO) 31.8 % (20.0-45.0); MEAN CORPUSCULAR VOLUME 88 FL (80-99); MONOCYTES % (AUTO) 6.2 % (1.0-10.0); NEUTROPHILS % (AUTO) 58.4 % (45.0-75.0); PLATELET COUNT 226 K/UL (150-450); RED BLOOD COUNT 4.19 M/UL (4.70-6.10); RED CELL DISTRIBUTION WIDTH 10.8 % (11.6-14.8); WHITE BLOOD COUNT 5.7 K/UL (4.8-10.8)
[2018-04-23 07:03] LABS: ANION GAP 13 mmol/L (5-15); BLOOD UREA NITROGEN 8 mg/dL (7-18); CALCIUM 8.7 MG/DL (8.5-10.1); CARBON DIOXIDE 18 MMOL/L (21-32); CHLORIDE 107 MMOL/L (98-107); CREATININE 0.7 MG/DL (0.55-1.30); POTASSIUM 3.6 MMOL/L (3.5-5.1); SODIUM 138 MMOL/L (136-145)
[2018-04-23] MEDS: D5NS 1,000 ML IV SCH ×2 (07:57→22:15)
[2018-04-23 08:00] VITALS: BP 132/79
[2018-04-23] MEDS: Docusate 100mg cap ORAL SCH ×2 (10:03→18:00)
[2018-04-23] MEDS: Topiramate 100mg tab ORAL SCH ×2 (10:03→22:08)
--- NOTE | 2018-04-23 11:10 | Nephrology Progress Note ---
Assessment/Plan Assessment 1. Hypokalemia, GI versus renal loss. 2. Hypomagnesemia. 3. Dehydration. 4. Recurrent seizure. 5. History of CP. 6. Mild acidosis. Plan continue current ivf replace k monitoring renal function closely avoid NSAID Subjective Constitutional: Reports: no symptoms HEENT: Reports: no symptoms Neurologic/Psychiatric: Reports: no symptoms Subjective no changes in MS Objective Objective Last 24 Hour Vital Signs Date Time Temp Pulse Resp B/P (MAP) Pulse Ox O2 Delivery O2 Flow Rate FiO2 04/23/18 04:00 98.7 84 18 105/71 (82) 84 04/23/18 00:00 97.7 85 20 135/77 (96) 98 04/22/18 21:00 Room Air 04/22/18 20:00 97.7 85 20 135/77 (96) 98 04/22/18 16:00 97.7 100 18 128/86 (100) 98 04/22/18 12:00 97.4 100 18 105/62 (76) 97 Intake and Output 04/22/18 04/23/18 19:00 07:00 Intake Total 440 ml Balance 440 ml Intake Oral 440 ml # Voids 4 3 # Bowel Movements 3 Laboratory Tests 04/23/18 05:05: White Blood Count 5.7, Red Blood Count 4.19L, Hemoglobin 12.5L, Hematocrit 37.0L , Mean Corpuscular Volume 88, Mean Corpuscular Hemoglobin 29.8, Mean Corpuscular Hemoglobin Concent 33.8, Red Cell Distribution Width 10.8L, Platelet Count 226, Mean Platelet Volume 5.3L, Neutrophils (%) (Auto) 58.4, Lymphocytes (%) (Auto) 31.8, Monocytes (%) (Auto) 6.2, Eosinophils (%) (Auto) 2.9, Basophils (%) (Auto) 0.6, Sodium Level 138, Potassium Level 3.6, Chloride Level 107, Carbon Dioxide Level 18L, Anion Gap 13, Blood Urea Nitrogen 8, Creatinine 0.7, Estimat Glomerular Filtration Rate > 60, Glucose Level 99, Calcium Level 8.7 Height (Feet): 5 Height (Inches): 8.00 Weight (Pounds): 178 Objective HEAD AND NECK: No JVP. No LAD. No thyromegaly. Extraocular movements intact. Pupils are reactive to light and accommodation. LUNGS: Clear to auscultation. CARDIAC: Regular rate and rhythm. S1 and S2. No murmur. No rub. ABDOMEN: Soft, nontender, and nondistended. EXTREMITIES: No edema. No clubbing. No cyanosis. Marley Arango MD Apr 23, 2018 11:10
[2018-04-23] MEDS ORDERED: Haloperidol 5mg/ml Inj IM SCH (11:30)
[2018-04-23] MEDS ORDERED: DiphenhydrAMINE 50mg/ml Inj IM SCH (11:30)
[2018-04-23] MEDS ORDERED: LORazepam Inj 2mg/ml 1ml IM SCH (11:30)
--- NOTE | 2018-04-23 11:30 | Infectious Diseases Prog Note ---
Assessment/Plan Assessment/Plan Assessment/Plan Worsened of mental status compared to the baseline, it appears that the patient has some improvement during this stay. -CT brain: No evidence of acute intracranial hemorrhage. 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 No evidence of infectious process at this time (normal white blood cells, afebrile, no tachycardia or hypertension). -u/a neg, ucx E.coli (colonizer) -Bcx Neg -CXR: no acute diseae -Bipolar disorder. -History of cerebral palsy. -History of seizure disorder. PLAN: - We will continue to monitor the patient off of antibiotics at this point. - f/u cultures (blood). - We will monitor the patient's laboratories, cultures. - If the patient's medical condition worsens due to significant infection based on laboratories, we will start the patient on antibiotic treatment. Subjective Allergies: Coded Allergies: No Known Allergies (Unverified , 04/11/18) Subjective afebrile no leukocytosis off abx Bcx Neg Objective Vital Signs Last 24 Hour Vital Signs Date Time Temp Pulse Resp B/P (MAP) Pulse Ox O2 Delivery O2 Flow Rate FiO2 04/23/18 09:00 Room Air 04/23/18 08:00 98.1 107 24 132/79 (96) 97 04/23/18 04:00 98.7 84 18 105/71 (82) 84 04/23/18 00:00 97.7 85 20 135/77 (96) 98 04/22/18 21:00 Room Air 04/22/18 20:00 97.7 85 20 135/77 (96) 98 04/22/18 16:00 97.7 100 18 128/86 (100) 98 04/22/18 12:00 97.4 100 18 105/62 (76) 97 Height (Feet): 5 Height (Inches): 8.00 Weight (Pounds): 178 Objective HEENT: No pale conjunctivae. No icterus. NECK: No lymphadenopathy. CHEST: Clear. HEART: S1 and S2. ABDOMEN: Soft, nontender. EXTREMITIES: No cyanosis at this time. NEUROLOGIC: Awake, appears to be confused. Laboratory Tests Test 12/20/18 05:05 White Blood Count 5.7 K/UL (4.8-10.8) Red Blood Count 4.19 M/UL (4.70-6.10) L Hemoglobin 12.5 G/DL (14.2-18.0) L Hematocrit 37.0 % (42.0-52.0) L Mean Corpuscular Volume 88 FL (80-99) Mean Corpuscular Hemoglobin 29.8 PG (27.0-31.0) Mean Corpuscular Hemoglobin Concent 33.8 G/DL (32.0-36.0) Red Cell Distribution Width 10.8 % (11.6-14.8) L Platelet Count 226 K/UL (150-450) Mean Platelet Volume 5.3 FL (6.5-10.1) L Neutrophils (%) (Auto) 58.4 % (45.0-75.0) Lymphocytes (%) (Auto) 31.8 % (20.0-45.0) Monocytes (%) (Auto) 6.2 % (1.0-10.0) Eosinophils (%) (Auto) 2.9 % (0.0-3.0) Basophils (%) (Auto) 0.6 % (0.0-2.0) Sodium Level 138 MMOL/L (136-145) Potassium Level 3.6 MMOL/L (3.5-5.1) Chloride Level 107 MMOL/L (98-107) Carbon Dioxide Level 18 MMOL/L (21-32) L Anion Gap 13 mmol/L (5-15) Blood Urea Nitrogen 8 mg/dL (7-18) Creatinine 0.7 MG/DL (0.55-1.30) Estimat Glomerular Filtration Rate > 60 mL/min (>60) Glucose Level 99 MG/DL (74-106) Calcium Level 8.7 MG/DL (8.5-10.1) Current Medications Medications (Trade) Dose Ordered Sig/Con Route PRN Reason Start Time Stop Time Status Last Admin Dose Admin Acetaminophen (Tylenol) 650 mg Q4H PRN ORAL T>100.5 04/22/18 17:40 05/11/18 17:39 Al Hydroxide/Mg Hydroxide (Mylanta II) 30 ml Q6H PRN ORAL dyspepsia 04/22/18 17:40 05/11/18 17:39 Bisacodyl (Dulcolax) 10 mg DAILYPRN PRN RECTAL Constipation 04/22/18 17:40 05/22/18 17:39 Dextrose (Dextrose 50%) 25 ml Q30M PRN IV Hypoglycemia 04/22/18 18:00 05/11/18 09:29 Dextrose (Dextrose 50%) 50 ml Q30M PRN IV hypoglycemia 04/22/18 18:00 05/11/18 09:29 Dextrose/Sodium Chloride 1,000 ml @ 70 mls/hr [id number] IV 04/22/18 17:39 05/20/18 17:38 04/22/18 18:25 Docusate Sodium (Colace) 100 mg TWICE A DAY ORAL 04/22/18 18:00 05/18/18 09:29 04/23/18 10:03 Levetiracetam (Keppra) 1,500 mg Q12HR ORAL 04/23/18 09:00 05/23/18 08:59 04/23/18 10:04 Lorazepam (Ativan) 1 mg Q6H PRN ORAL For Anxiety 04/22/18 17:41 04/28/18 17:40 04/22/18 23:32 Ondansetron HCl (Zofran) 4 mg Q6H PRN ORAL Nausea & Vomiting 04/22/18 17:41 05/13/18 17:40 Polyethylene Glycol (Miralax) 17 gm DAILYPRN PRN ORAL Constipation 04/22/18 17:41 05/22/18 17:40 Risperidone (RisperDAL) 2 mg TID ORAL 04/22/18 18:00 05/11/18 09:29 04/23/18 10:03 Topiramate (Topamax) 100 mg Q12HR ORAL 04/22/18 22:00 05/22/18 21:59 04/23/18 10:03 Tressa Sanchez M.D. Apr 23, 2018 11:30
[2018-04-23 12:00] VITALS: BP 124/79
--- NOTE | 2018-04-23 14:34 | General Progress Note ---
Assessment/Plan Problem List: (1) Schizoaffective disorder, bipolar type ICD Codes: F25.0 - Schizoaffective disorder, bipolar type SNOMED: 51925511 (2) Violent behavior ICD Codes: R45.6 - Violent behavior SNOMED: 493632145 (3) Anemia ICD Codes: D64.9 - Anemia, unspecified SNOMED: 042561290 (4) Delirium ICD Codes: R41.0 - Disorientation, unspecified SNOMED: 8747420 (5) Seizure ICD Codes: R56.9 - Unspecified convulsions SNOMED: 43833158 Status: stable, progressing Assessment/Plan ot pt diet seizure control neuro tanna eval cbc bmp am dc to psyc if all clear Subjective Constitutional: Reports: weakness Allergies: Coded Allergies: No Known Allergies (Unverified , 04/11/18) All Systems: reviewed and negative except above Subjective o2nc sleepy calm Objective Last 24 Hour Vital Signs Date Time Temp Pulse Resp B/P (MAP) Pulse Ox O2 Delivery O2 Flow Rate FiO2 04/23/18 12:00 97.9 105 24 124/79 (94) 98 04/23/18 09:00 Room Air 04/23/18 08:00 98.1 107 24 132/79 (96) 97 04/23/18 04:00 98.7 84 18 105/71 (82) 84 04/23/18 00:00 97.7 85 20 135/77 (96) 98 04/22/18 21:00 Room Air 04/22/18 20:00 97.7 85 20 135/77 (96) 98 04/22/18 16:00 97.7 100 18 128/86 (100) 98 Intake and Output 04/22/18 04/23/18 19:00 07:00 Intake Total 440 ml Balance 440 ml Intake Oral 440 ml # Voids 4 3 # Bowel Movements 3 Laboratory Tests 04/23/18 05:05: White Blood Count 5.7, Red Blood Count 4.19L, Hemoglobin 12.5L, Hematocrit 37.0L , Mean Corpuscular Volume 88, Mean Corpuscular Hemoglobin 29.8, Mean Corpuscular Hemoglobin Concent 33.8, Red Cell Distribution Width 10.8L, Platelet Count 226, Mean Platelet Volume 5.3L, Neutrophils (%) (Auto) 58.4, Lymphocytes (%) (Auto) 31.8, Monocytes (%) (Auto) 6.2, Eosinophils (%) (Auto) 2.9, Basophils (%) (Auto) 0.6, Sodium Level 138, Potassium Level 3.6, Chloride Level 107, Carbon Dioxide Level 18L, Anion Gap 13, Blood Urea Nitrogen 8, Creatinine 0.7, Estimat Glomerular Filtration Rate > 60, Glucose Level 99, Calcium Level 8.7 Height (Feet): 5 Height (Inches): 8.00 Weight (Pounds): 178 General Appearance: lethargic EENT: normal ENT inspection Neck: normal alignment Cardiovascular: normal peripheral pulses, normal rate, regular rhythm Respiratory/Chest: chest wall non-tender, lungs clear, normal breath sounds Abdomen: normal bowel sounds, non tender, soft Extremities: normal inspection Edema: no edema noted Arm (L), no edema noted Arm (R), no edema noted Leg (L), no edema noted Leg (R), no edema noted Pedal (L), no edema noted Pedal (R), no edema noted Generalized Neurologic: motor weakness Skin: normal pigmentation, warm/dry Jareth Branch DO Apr 23, 2018 14:34
[2018-04-23 16:00] VITALS: BP 109/72
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
[2018-04-23 20:00] VITALS: BP 107/66
[2018-04-23] MEDS: LORazepam 1mg tab ORAL PRN (22:08)
[2018-04-24] VITALS: BP 129/71
[2018-04-24 04:00] VITALS: BP 98/54
[2018-04-24 06:57] LABS: ANION GAP 10 mmol/L (5-15); BLOOD UREA NITROGEN 15 mg/dL (7-18); CALCIUM 8.9 MG/DL (8.5-10.1); CARBON DIOXIDE 20 MMOL/L (21-32); CHLORIDE 112 MMOL/L (98-107); CREATININE 0.8 MG/DL (0.55-1.30); POTASSIUM 3.7 MMOL/L (3.5-5.1); SODIUM 142 MMOL/L (136-145)
[2018-04-24 07:16] LABS: BASOPHILS % (AUTO) 0.7 % (0.0-2.0); EOSINOPHILS % (AUTO) 3.7 % (0.0-3.0); HEMATOCRIT 38.2 % (42.0-52.0); HEMOGLOBIN 12.8 G/DL (14.2-18.0); LYMPHOCYTES % (AUTO) 35.7 % (20.0-45.0); MEAN CORPUSCULAR VOLUME 89 FL (80-99); MONOCYTES % (AUTO) 7.5 % (1.0-10.0); NEUTROPHILS % (AUTO) 52.4 % (45.0-75.0); PLATELET COUNT 246 K/UL (150-450); RED CELL DISTRIBUTION WIDTH 11.2 % (11.6-14.8); WHITE BLOOD COUNT 7.4 K/UL (4.8-10.8)
[2018-04-24 08:00] VITALS: BP 107/68
[2018-04-24] MEDS: Docusate 100mg cap ORAL SCH ×2 (09:15→18:10)
[2018-04-24] MEDS: Topiramate 100mg tab ORAL SCH ×2 (09:15→20:55)
[2018-04-24 12:00] VITALS: BP 128/85
[2018-04-24] MEDS: D5NS 1,000 ML IV SCH (12:33)
--- NOTE | 2018-04-24 13:46 | General Progress Note ---
Assessment/Plan Problem List: (1) Schizoaffective disorder, bipolar type ICD Codes: F25.0 - Schizoaffective disorder, bipolar type SNOMED: 69392988 (2) Violent behavior ICD Codes: R45.6 - Violent behavior SNOMED: 813938756 (3) Anemia ICD Codes: D64.9 - Anemia, unspecified SNOMED: 125391407 (4) Delirium ICD Codes: R41.0 - Disorientation, unspecified SNOMED: 7430953 (5) Seizure ICD Codes: R56.9 - Unspecified convulsions SNOMED: 38432078 Status: stable, progressing Assessment/Plan ot pt diet seizure control neuro tanna eval dc to psyc if all clear Subjective Constitutional: Reports: weakness Allergies: Coded Allergies: No Known Allergies (Unverified , 04/11/18) All Systems: reviewed and negative except above Subjective sleepy calm Objective Last 24 Hour Vital Signs Date Time Temp Pulse Resp B/P (MAP) Pulse Ox O2 Delivery O2 Flow Rate FiO2 04/24/18 09:00 Room Air 04/24/18 08:00 97.4 72 20 107/68 (81) 100 04/24/18 04:00 98.0 108 19 98/54 (69) 95 04/24/18 00:00 98.3 87 19 129/71 (90) 95 04/23/18 21:00 Room Air 04/23/18 20:00 97.7 61 19 107/66 (80) 97 04/23/18 16:00 98.0 107 20 109/72 (84) 98 Intake and Output 04/23/18 04/24/18 19:00 07:00 Intake Total 680 ml Balance 680 ml Intake Oral 680 ml # Voids 7 7 # Bowel Movements 1 3 Laboratory Tests 04/24/18 05:30: White Blood Count 7.4, Red Blood Count 4.30L, Hemoglobin 12.8L, Hematocrit 38.2L , Mean Corpuscular Volume 89, Mean Corpuscular Hemoglobin 29.8, Mean Corpuscular Hemoglobin Concent 33.6, Red Cell Distribution Width 11.2L, Platelet Count 246, Mean Platelet Volume 5.9L, Neutrophils (%) (Auto) 52.4, Lymphocytes (%) (Auto) 35.7, Monocytes (%) (Auto) 7.5, Eosinophils (%) (Auto) 3.7H, Basophils (%) (Auto) 0.7, Sodium Level 142, Potassium Level 3.7, Chloride Level 112H, Carbon Dioxide Level 20L, Anion Gap 10, Blood Urea Nitrogen 15, Creatinine 0.8, Estimat Glomerular Filtration Rate > 60, Glucose Level 115H, Calcium Level 8.9 Height (Feet): 5 Height (Inches): 8.00 Weight (Pounds): 178 General Appearance: lethargic EENT: normal ENT inspection Neck: normal alignment Cardiovascular: normal peripheral pulses, normal rate, regular rhythm Respiratory/Chest: chest wall non-tender, lungs clear, normal breath sounds Abdomen: normal bowel sounds, non tender, soft Extremities: normal inspection Edema: no edema noted Arm (L), no edema noted Arm (R), no edema noted Leg (L), no edema noted Leg (R), no edema noted Pedal (L), no edema noted Pedal (R), no edema noted Generalized Neurologic: motor weakness Skin: normal pigmentation, warm/dry Jareth Branch DO Apr 24, 2018 13:46
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
[2018-04-24 16:00] VITALS: BP 125/77
--- NOTE | 2018-04-24 16:25 | Infectious Diseases Prog Note ---
Assessment/Plan Assessment/Plan Assessment/Plan Worsened of mental status compared to the baseline, it appears that the patient has some improvement during this stay. -CT brain: No evidence of acute intracranial hemorrhage. 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 No evidence of infectious process at this time (normal white blood cells, afebrile, no tachycardia or hypertension). -u/a neg, ucx E.coli (colonizer) -Bcx Neg -CXR: no acute diseae -Bipolar disorder. -History of cerebral palsy. -History of seizure disorder. PLAN: - We will continue to monitor the patient off of antibiotics at this point. - f/u cultures (blood). - We will monitor the patient's laboratories, cultures. - If the patient's medical condition worsens due to significant infection based on laboratories, we will start the patient on antibiotic treatment. Subjective Allergies: Coded Allergies: No Known Allergies (Unverified , 04/11/18) Subjective afebrile no leukocytosis off abx Objective Vital Signs Last 24 Hour Vital Signs Date Time Temp Pulse Resp B/P (MAP) Pulse Ox O2 Delivery O2 Flow Rate FiO2 04/24/18 09:00 Room Air 04/24/18 08:00 97.4 72 20 107/68 (81) 100 04/24/18 04:00 98.0 108 19 98/54 (69) 95 04/24/18 00:00 98.3 87 19 129/71 (90) 95 04/23/18 21:00 Room Air 04/23/18 20:00 97.7 61 19 107/66 (80) 97 Height (Feet): 5 Height (Inches): 8.00 Weight (Pounds): 178 Objective HEENT: No pale conjunctivae. No icterus. NECK: No lymphadenopathy. CHEST: Clear. HEART: S1 and S2. ABDOMEN: Soft, nontender. EXTREMITIES: No cyanosis at this time. NEUROLOGIC: Awake, appears to be confused. Laboratory Tests Test 04/24/18 05:30 White Blood Count 7.4 K/UL (4.8-10.8) Red Blood Count 4.30 M/UL (4.70-6.10) L Hemoglobin 12.8 G/DL (14.2-18.0) L Hematocrit 38.2 % (42.0-52.0) L Mean Corpuscular Volume 89 FL (80-99) Mean Corpuscular Hemoglobin 29.8 PG (27.0-31.0) Mean Corpuscular Hemoglobin Concent 33.6 G/DL (32.0-36.0) Red Cell Distribution Width 11.2 % (11.6-14.8) L Platelet Count 246 K/UL (150-450) Mean Platelet Volume 5.9 FL (6.5-10.1) L Neutrophils (%) (Auto) 52.4 % (45.0-75.0) Lymphocytes (%) (Auto) 35.7 % (20.0-45.0) Monocytes (%) (Auto) 7.5 % (1.0-10.0) Eosinophils (%) (Auto) 3.7 % (0.0-3.0) H Basophils (%) (Auto) 0.7 % (0.0-2.0) Sodium Level 142 MMOL/L (136-145) Potassium Level 3.7 MMOL/L (3.5-5.1) Chloride Level 112 MMOL/L (98-107) H Carbon Dioxide Level 20 MMOL/L (21-32) L Anion Gap 10 mmol/L (5-15) Blood Urea Nitrogen 15 mg/dL (7-18) Creatinine 0.8 MG/DL (0.55-1.30) Estimat Glomerular Filtration Rate > 60 mL/min (>60) Glucose Level 115 MG/DL (74-106) H Calcium Level 8.9 MG/DL (8.5-10.1) Current Medications Medications (Trade) Dose Ordered Sig/Con Route PRN Reason Start Time Stop Time Status Last Admin Dose Admin Acetaminophen (Tylenol) 650 mg Q4H PRN ORAL T>100.5 04/22/18 17:40 05/11/18 17:39 Al Hydroxide/Mg Hydroxide (Mylanta II) 30 ml Q6H PRN ORAL dyspepsia 04/22/18 17:40 05/11/18 17:39 Bisacodyl (Dulcolax) 10 mg DAILYPRN PRN RECTAL Constipation 04/22/18 17:40 05/22/18 17:39 Dextrose (Dextrose 50%) 25 ml Q30M PRN IV Hypoglycemia 04/22/18 18:00 05/11/18 09:29 Dextrose (Dextrose 50%) 50 ml Q30M PRN IV hypoglycemia 04/22/18 18:00 05/11/18 09:29 Dextrose/Sodium Chloride 1,000 ml @ 70 mls/hr [id number] IV 04/22/18 17:39 05/20/18 17:38 04/22/18 18:25 Docusate Sodium (Colace) 100 mg TWICE A DAY ORAL 04/22/18 18:00 05/18/18 09:29 04/24/18 09:15 Levetiracetam (Keppra) 1,500 mg Q12HR ORAL 04/23/18 09:00 05/23/18 08:59 04/24/18 09:15 Lorazepam (Ativan) 1 mg Q6H PRN ORAL For Anxiety 04/22/18 17:41 04/28/18 17:40 04/23/18 22:08 Ondansetron HCl (Zofran) 4 mg Q6H PRN ORAL Nausea & Vomiting 04/22/18 17:41 05/13/18 17:40 Polyethylene Glycol (Miralax) 17 gm DAILYPRN PRN ORAL Constipation 04/22/18 17:41 05/22/18 17:40 Risperidone (RisperDAL) 2 mg TID ORAL 04/22/18 18:00 05/11/18 09:29 04/24/18 12:55 Topiramate (Topamax) 100 mg Q12HR ORAL 04/22/18 22:00 05/22/18 21:59 04/24/18 09:15 Tressa Sanchez M.D. Apr 24, 2018 16:25
[2018-04-24 20:00] VITALS: BP 140/84
--- NOTE | 2018-04-24 21:24 | Nephrology Progress Note ---
Assessment/Plan Assessment 1. Hypokalemia, GI versus renal loss. 2. Hypomagnesemia. 3. Dehydration. 4. Recurrent seizure. 5. History of CP. 6. Mild acidosis. Plan continue current ivf replace k monitoring renal function closely avoid NSAID Subjective ROS Limited/Unobtainable: Yes Constitutional: Reports: no symptoms HEENT: Reports: no symptoms Genitourinary: Reports: no symptoms Neurologic/Psychiatric: Reports: no symptoms Subjective no changes in MS Objective Objective Last 24 Hour Vital Signs Date Time Temp Pulse Resp B/P (MAP) Pulse Ox O2 Delivery O2 Flow Rate FiO2 04/24/18 16:00 97.1 96 20 125/77 (93) 96 04/24/18 12:00 97.0 83 20 128/85 (99) 99 04/24/18 09:00 Room Air 04/24/18 08:00 97.4 72 20 107/68 (81) 100 04/24/18 04:00 98.0 108 19 98/54 (69) 95 04/24/18 00:00 98.3 87 19 129/71 (90) 95 Intake and Output 04/23/18 04/24/18 19:00 07:00 Intake Total 680 ml Balance 680 ml Intake Oral 680 ml # Voids 7 7 # Bowel Movements 1 3 Laboratory Tests 04/24/18 05:30: White Blood Count 7.4, Red Blood Count 4.30L, Hemoglobin 12.8L, Hematocrit 38.2L , Mean Corpuscular Volume 89, Mean Corpuscular Hemoglobin 29.8, Mean Corpuscular Hemoglobin Concent 33.6, Red Cell Distribution Width 11.2L, Platelet Count 246, Mean Platelet Volume 5.9L, Neutrophils (%) (Auto) 52.4, Lymphocytes (%) (Auto) 35.7, Monocytes (%) (Auto) 7.5, Eosinophils (%) (Auto) 3.7H, Basophils (%) (Auto) 0.7, Sodium Level 142, Potassium Level 3.7, Chloride Level 112H, Carbon Dioxide Level 20L, Anion Gap 10, Blood Urea Nitrogen 15, Creatinine 0.8, Estimat Glomerular Filtration Rate > 60, Glucose Level 115H, Calcium Level 8.9 Height (Feet): 5 Height (Inches): 8.00 Weight (Pounds): 178 Objective HEAD AND NECK: No JVP. No LAD. No thyromegaly. Extraocular movements intact. Pupils are reactive to light and accommodation. LUNGS: Clear to auscultation. CARDIAC: Regular rate and rhythm. S1 and S2. No murmur. No rub. ABDOMEN: Soft, nontender, and nondistended. EXTREMITIES: No edema. No clubbing. No cyanosis. Marley Arango MD Apr 24, 2018 21:24
[2018-04-25] VITALS: BP 118/75
[2018-04-25] MEDS ORDERED: LORazepam Inj 2mg/ml 1ml IV PRN ×3 (02:00→15:30)
[2018-04-25] MEDS ORDERED: D5NS 1,000 ML IV SCH (02:30)
--- NOTE | 2018-04-25 02:36 | Diagnostic Imaging Report ---
EXAM: CT Head Without Intravenous Contrast CLINICAL HISTORY: SZ TECHNIQUE: Axial computed tomography images of the head/brain without intravenous contrast. CTDI is 70.38 mGy and DLP is 1432 mGy-cm. One or more of the following dose reduction techniques were used: automated exposure control, adjustment of the mA and/or kV according to patient size, use of iterative reconstruction technique. COMPARISON: 04/11/18 FINDINGS: Brain: No acute intracranial hemorrhage or mass effect. Redemonstration of abnormal brain parenchyma likely developmental variant. Asymmetric volume of the cerebral hemisphere, right greater than left. No hemorrhage. No significant white matter disease. Midline shift: No midline shift. Ventricles: Slight prominence of the atria of the lateral ventricles, unchanged. Bones/joints: Unremarkable. No acute fracture. Soft tissues: Unremarkable. Sinuses: Unremarkable as visualized. No acute sinusitis. Mastoid air cells: Unremarkable as visualized. No mastoid effusion. Other findings: IMPRESSION: No acute intracranial hemorrhage or mass effect. 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
[2018-04-25 04:00] VITALS: BP 125/90
[2018-04-25] MEDS ORDERED: LORazepam 1mg tab ORAL PRN (05:45)
[2018-04-25] MEDS ORDERED: Mylanta II UD 30ml ORAL PRN ×2 (05:45→15:30)
[2018-04-25 08:00] VITALS: BP 152/80
--- NOTE | 2018-04-25 08:42 | General Progress Note ---
Assessment/Plan Problem List: (1) Schizoaffective disorder, bipolar type ICD Codes: F25.0 - Schizoaffective disorder, bipolar type SNOMED: 98640061 (2) Violent behavior ICD Codes: R45.6 - Violent behavior SNOMED: 429229339 (3) Anemia ICD Codes: D64.9 - Anemia, unspecified SNOMED: 209412787 (4) Delirium ICD Codes: R41.0 - Disorientation, unspecified SNOMED: 0707043 (5) Seizure ICD Codes: R56.9 - Unspecified convulsions SNOMED: 24866375 Status: unchanged Assessment/Plan ot pt diet seizure control neuro tanna eval cbc bmp am dc to psyc if all clear Subjective Constitutional: Reports: weakness Allergies: Coded Allergies: No Known Allergies (Unverified , 04/11/18) All Systems: reviewed and negative except above Subjective sleepy calm Objective Last 24 Hour Vital Signs Date Time Temp Pulse Resp B/P (MAP) Pulse Ox O2 Delivery O2 Flow Rate FiO2 04/25/18 04:00 104 04/25/18 04:00 97.7 111 18 125/90 (102) 95 04/25/18 02:33 114 04/25/18 00:00 97.9 81 19 118/75 (89) 96 04/24/18 21:31 Room Air 04/24/18 20:00 97.7 89 19 140/84 (102) 96 04/24/18 16:00 97.1 96 20 125/77 (93) 96 04/24/18 12:00 97.0 83 20 128/85 (99) 99 04/24/18 09:00 Room Air Intake and Output 04/24/18 04/25/18 18:59 06:59 Intake Total 720 ml 710 ml Output Total 800 ml Balance -80 ml 710 ml Intake Oral 720 ml 480 ml IV Total 230 ml Output Urine Total 800 ml # Voids 5 # Bowel Movements 2 Laboratory Tests 04/25/18 05:50: Levetiracetam (Keppra) Level [Pending] Height (Feet): 5 Height (Inches): 8.00 Weight (Pounds): 178 General Appearance: lethargic EENT: normal ENT inspection Neck: normal alignment Cardiovascular: normal peripheral pulses, normal rate, regular rhythm Respiratory/Chest: chest wall non-tender, lungs clear, normal breath sounds Abdomen: normal bowel sounds, non tender, soft Extremities: normal inspection Edema: no edema noted Arm (L), no edema noted Arm (R), no edema noted Leg (L), no edema noted Leg (R), no edema noted Pedal (L), no edema noted Pedal (R), no edema noted Generalized Neurologic: motor weakness Skin: normal pigmentation, warm/dry Jareth Branch DO Apr 25, 2018 08:42
[2018-04-25] MEDS ORDERED: Docusate 100mg cap ORAL SCH (09:00)
[2018-04-25] MEDS ORDERED: Topiramate 100mg tab ORAL SCH (09:00)
--- NOTE | 2018-04-25 11:20 | Infectious Diseases Prog Note ---
Assessment/Plan Assessment/Plan Assessment/Plan Worsened of mental status compared to the baseline, it appears that the patient has some improvement during this stay. -CT brain: No evidence of acute intracranial hemorrhage. 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 No evidence of infectious process at this time (normal white blood cells, afebrile, no tachycardia or hypertension). -u/a neg, ucx E.coli (colonizer) -Bcx Neg -CXR: no acute diseae Recurrent seizure episodes -Bipolar disorder. -History of cerebral palsy. -History of seizure disorder. PLAN: - We will continue to monitor the patient off of antibiotics at this point. - We will monitor the patient's laboratories, cultures. - If the patient's medical condition worsens due to significant infection based on laboratories, we will start the patient on antibiotic treatment. Subjective Allergies: Coded Allergies: No Known Allergies (Unverified , 04/11/18) Subjective afebrile no leukocytosis off abx had 2 seizures episodes last night and was transferred to telemetry Objective Vital Signs Last 24 Hour Vital Signs Date Time Temp Pulse Resp B/P (MAP) Pulse Ox O2 Delivery O2 Flow Rate FiO2 04/25/18 09:00 Room Air 04/25/18 08:06 90 04/25/18 08:00 98.2 21 152/80 (104) 97 04/25/18 04:00 104 04/25/18 04:00 97.7 111 18 125/90 (102) 95 04/25/18 02:33 114 04/25/18 00:00 97.9 81 19 118/75 (89) 96 04/24/18 21:31 Room Air 04/24/18 20:00 97.7 89 19 140/84 (102) 96 04/24/18 16:00 97.1 96 20 125/77 (93) 96 04/24/18 12:00 97.0 83 20 128/85 (99) 99 Height (Feet): 5 Height (Inches): 8.00 Weight (Pounds): 178 Objective HEENT: No pale conjunctivae. No icterus. NECK: No lymphadenopathy. CHEST: Clear. HEART: S1 and S2. ABDOMEN: Soft, nontender. EXTREMITIES: No cyanosis at this time. NEUROLOGIC: Awake, appears to be confused. Laboratory Tests Test 04/25/18 05:50 Levetiracetam (Keppra) Level Pending Current Medications Medications (Trade) Dose Ordered Sig/Con Route PRN Reason Start Time Stop Time Status Last Admin Dose Admin Acetaminophen (Tylenol) 650 mg Q4H PRN ORAL T>100.5 04/25/18 05:45 05/11/18 17:39 Al Hydroxide/Mg Hydroxide (Mylanta II) 30 ml Q6H PRN ORAL dyspepsia 04/25/18 05:45 05/11/18 17:39 Bisacodyl (Dulcolax) 10 mg DAILYPRN PRN RECTAL Constipation 04/25/18 17:45 05/22/18 17:39 Dextrose (Dextrose 50%) 25 ml Q30M PRN IV Hypoglycemia 04/25/18 02:30 05/11/18 09:29 Dextrose (Dextrose 50%) 50 ml Q30M PRN IV hypoglycemia 04/25/18 02:30 05/11/18 09:29 Dextrose/Sodium Chloride 1,000 ml @ 70 mls/hr [id number] IV 04/25/18 02:30 05/20/18 17:38 04/25/18 02:43 Docusate Sodium (Colace) 100 mg TWICE A DAY ORAL 04/25/18 09:00 05/18/18 09:29 04/25/18 09:01 Levetiracetam (Keppra) 1,500 mg Q12HR ORAL 04/25/18 09:00 05/23/18 08:59 04/25/18 09:02 Lorazepam (Ativan 2mg/ml 1ml) 2 mg PRN PRN IV For Seizures 04/25/18 07:00 05/02/18 06:59 Lorazepam (Ativan) 1 mg Q6H PRN ORAL For Anxiety 04/25/18 05:45 04/28/18 17:40 Ondansetron HCl (Zofran) 4 mg Q6H PRN ORAL Nausea & Vomiting 04/25/18 05:45 05/13/18 17:40 Polyethylene Glycol (Miralax) 17 gm DAILYPRN PRN ORAL Constipation 04/25/18 17:45 05/22/18 17:40 Risperidone (RisperDAL) 2 mg TID ORAL 04/25/18 09:00 05/11/18 09:29 04/25/18 09:01 Topiramate (Topamax) 100 mg Q12HR ORAL 04/25/18 09:00 05/22/18 21:59 04/25/18 09:01 Tressa Sanchez M.D. Apr 25, 2018 11:20
[2018-04-25 12:00] VITALS: BP 116/78
[2018-04-25] MEDS ORDERED: NS 275ml ONE (13:22)
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
[2018-04-25] MEDS ORDERED: Miralax 17gm pkt ORAL PRN ×2 (15:30→17:45)
[2018-04-25 16:00] VITALS: BP 114/76
[2018-04-25] MEDS: D5NS 1,000 ML IV SCH (16:03)
[2018-04-25] MEDS ORDERED: D5NS 1000ml IV ONE (16:19)
[2018-04-25] MEDS: Docusate 100mg cap ORAL SCH (17:16)
[2018-04-25 20:17] VITALS: BP 125/82
[2018-04-25] MEDS: Topiramate 100mg tab ORAL SCH (20:44)
[2018-04-26 00:50] VITALS: BP 108/65
[2018-04-26 04:39] VITALS: BP 102/67
[2018-04-26] MEDS: D5NS 1,000 ML IV SCH (05:51)
[2018-04-26 07:49] LABS: BASOPHILS % (AUTO) 0.8 % (0.0-2.0); EOSINOPHILS % (AUTO) 3.3 % (0.0-3.0); HEMATOCRIT 39.1 % (42.0-52.0); HEMOGLOBIN 13.3 G/DL (14.2-18.0); LYMPHOCYTES % (AUTO) 30.3 % (20.0-45.0); MEAN CORPUSCULAR VOLUME 87 FL (80-99); MONOCYTES % (AUTO) 9.6 % (1.0-10.0); PLATELET COUNT 267 K/UL (150-450); RED BLOOD COUNT 4.48 M/UL (4.70-6.10); RED CELL DISTRIBUTION WIDTH 11.3 % (11.6-14.8); WHITE BLOOD COUNT 5.8 K/UL (4.8-10.8)
[2018-04-26 07:56] VITALS: BP 122/78
[2018-04-26 08:04] LABS: ANION GAP 13 mmol/L (5-15); BLOOD UREA NITROGEN 7 mg/dL (7-18); CALCIUM 9.2 MG/DL (8.5-10.1); CARBON DIOXIDE 19 MMOL/L (21-32); CHLORIDE 108 MMOL/L (98-107); CREATININE 0.6 MG/DL (0.55-1.30); POTASSIUM 3.4 MMOL/L (3.5-5.1); SODIUM 140 MMOL/L (136-145)
[2018-04-26] MEDS: Topiramate 100mg tab ORAL SCH ×2 (08:05→20:25)
[2018-04-26] MEDS: LORazepam 1mg tab ORAL PRN (08:05)
[2018-04-26] MEDS: Docusate 100mg cap ORAL SCH ×2 (08:05→17:13)
--- NOTE | 2018-04-26 08:08 | General Progress Note ---
Assessment/Plan Problem List: (1) Schizoaffective disorder, bipolar type ICD Codes: F25.0 - Schizoaffective disorder, bipolar type SNOMED: 78397037 (2) Violent behavior ICD Codes: R45.6 - Violent behavior SNOMED: 993437850 (3) Anemia ICD Codes: D64.9 - Anemia, unspecified SNOMED: 155784214 (4) Delirium ICD Codes: R41.0 - Disorientation, unspecified SNOMED: 2946050 (5) Seizure ICD Codes: R56.9 - Unspecified convulsions SNOMED: 19287892 Status: stable, progressing Assessment/Plan ot pt diet seizure control neuro tanna eval cbc bmp am dc to psyc if all clear Subjective Constitutional: Reports: weakness Allergies: Coded Allergies: No Known Allergies (Unverified , 04/11/18) All Systems: reviewed and negative except above Subjective sleepy calm Objective Last 24 Hour Vital Signs Date Time Temp Pulse Resp B/P (MAP) Pulse Ox O2 Delivery O2 Flow Rate FiO2 04/26/18 07:57 Room Air 04/26/18 07:56 98.2 92 21 122/78 (93) 98 04/26/18 04:39 97.0 60 17 102/67 (79) 99 04/26/18 01:05 61 04/26/18 00:50 97.0 55 17 108/65 (79) 100 04/25/18 22:02 Room Air 04/25/18 20:17 98.0 85 18 125/82 (96) 98 04/25/18 16:00 98.5 82 20 114/76 (89) 96 04/25/18 12:00 98.8 78 20 116/78 (91) 99 04/25/18 11:51 80 04/25/18 09:00 Room Air Intake and Output 04/25/18 04/26/18 18:59 06:59 Intake Total 610 ml 820 ml Balance 610 ml 820 ml Intake Oral 400 ml 120 ml IV Total 210 ml 700 ml # Voids 2 1 Laboratory Tests 04/26/18 06:35: White Blood Count 5.8, Red Blood Count 4.48L, Hemoglobin 13.3L, Hematocrit 39.1L , Mean Corpuscular Volume 87, Mean Corpuscular Hemoglobin 29.6, Mean Corpuscular Hemoglobin Concent 33.9, Red Cell Distribution Width 11.3L, Platelet Count 267, Mean Platelet Volume 5.9L, Neutrophils (%) (Auto) 56.0, Lymphocytes (%) (Auto) 30.3, Monocytes (%) (Auto) 9.6, Eosinophils (%) (Auto) 3.3H, Basophils (%) (Auto) 0.8, Sodium Level 140, Potassium Level 3.4L, Chloride Level 108H, Carbon Dioxide Level 19L, Anion Gap 13, Blood Urea Nitrogen 7, Creatinine 0.6, Estimat Glomerular Filtration Rate > 60, Glucose Level 122H, Calcium Level 9.2 Height (Feet): 5 Height (Inches): 8.00 Weight (Pounds): 178 General Appearance: lethargic EENT: normal ENT inspection Neck: normal alignment Cardiovascular: normal peripheral pulses, normal rate, regular rhythm Respiratory/Chest: chest wall non-tender, lungs clear, normal breath sounds Abdomen: normal bowel sounds, non tender, soft Extremities: normal inspection Edema: no edema noted Arm (L), no edema noted Arm (R), no edema noted Leg (L), no edema noted Leg (R), no edema noted Pedal (L), no edema noted Pedal (R), no edema noted Generalized Neurologic: motor weakness Skin: normal pigmentation, warm/dry Jareth Branch DO Apr 26, 2018 08:08
[2018-04-26 12:02] VITALS: BP 114/66
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
--- NOTE | 2018-04-26 14:16 | Nephrology Progress Note ---
Assessment/Plan Assessment 1. Hypokalemia, GI versus renal loss. 2. Hypomagnesemia. 3. Dehydration. 4. Recurrent seizure. 5. History of CP. 6. Mild acidosis. Plan DC current ivf replace k monitoring renal function closely gastric support Subjective ROS Limited/Unobtainable: No Interval Events/Complaints coverage for Dr Arango Constitutional: Reports: malaise Objective Objective Last 24 Hour Vital Signs Date Time Temp Pulse Resp B/P (MAP) Pulse Ox O2 Delivery O2 Flow Rate FiO2 04/26/18 12:02 98.2 64 18 114/66 (82) 99 04/26/18 07:57 Room Air 04/26/18 07:56 98.2 92 21 122/78 (93) 98 04/26/18 04:39 97.0 60 17 102/67 (79) 99 04/26/18 01:05 61 04/26/18 00:50 97.0 55 17 108/65 (79) 100 04/25/18 22:02 Room Air 04/25/18 20:17 98.0 85 18 125/82 (96) 98 04/25/18 16:00 98.5 82 20 114/76 (89) 96 Intake and Output 04/25/18 04/26/18 19:00 07:00 Intake Total 610 ml 750 ml Balance 610 ml 750 ml Intake Oral 400 ml 120 ml IV Total 210 ml 630 ml # Voids 2 1 Laboratory Tests 04/26/18 06:35: White Blood Count 5.8, Red Blood Count 4.48L, Hemoglobin 13.3L, Hematocrit 39.1L , Mean Corpuscular Volume 87, Mean Corpuscular Hemoglobin 29.6, Mean Corpuscular Hemoglobin Concent 33.9, Red Cell Distribution Width 11.3L, Platelet Count 267, Mean Platelet Volume 5.9L, Neutrophils (%) (Auto) 56.0, Lymphocytes (%) (Auto) 30.3, Monocytes (%) (Auto) 9.6, Eosinophils (%) (Auto) 3.3H, Basophils (%) (Auto) 0.8, Sodium Level 140, Potassium Level 3.4L, Chloride Level 108H, Carbon Dioxide Level 19L, Anion Gap 13, Blood Urea Nitrogen 7, Creatinine 0.6, Estimat Glomerular Filtration Rate > 60, Glucose Level 122H, Calcium Level 9.2 Height (Feet): 5 Height (Inches): 8.00 Weight (Pounds): 178 General Appearance: no apparent distress Objective no change Elie Nation MD Apr 26, 2018 14:16
[2018-04-26 14:45] LABS: ALANINE AMINOTRANSFERASE 28 U/L (12-78); ALBUMIN 3.6 G/DL (3.4-5.0); ALKALINE PHOSPHATASE 62 U/L (46-116); ASPARTATE AMINO TRANSFERASE 15 U/L (15-37); BILIRUBIN,DIRECT 0.1 MG/DL (0.0-0.3); BILIRUBIN,TOTAL 0.4 MG/DL (0.2-1.0); PHOSPHORUS 4.7 MG/DL (2.5-4.9)
[2018-04-26 16:00] VITALS: BP 122/74
[2018-04-26 20:00] VITALS: BP 110/74
[2018-04-27 00:10] VITALS: BP 107/65
[2018-04-27 04:37] VITALS: BP 131/96
[2018-04-27 07:28] LABS: BASOPHILS % (AUTO) 0.7 % (0.0-2.0); EOSINOPHILS % (AUTO) 3.3 % (0.0-3.0); HEMATOCRIT 37.8 % (42.0-52.0); HEMOGLOBIN 12.9 G/DL (14.2-18.0); LYMPHOCYTES % (AUTO) 35.9 % (20.0-45.0); MEAN CORPUSCULAR VOLUME 88 FL (80-99); MONOCYTES % (AUTO) 7.2 % (1.0-10.0); NEUTROPHILS % (AUTO) 52.9 % (45.0-75.0); PLATELET COUNT 289 K/UL (150-450); RED BLOOD COUNT 4.32 M/UL (4.70-6.10); RED CELL DISTRIBUTION WIDTH 11.1 % (11.6-14.8); WHITE BLOOD COUNT 6.2 K/UL (4.8-10.8)
[2018-04-27 07:35] LABS: ANION GAP 15 mmol/L (5-15); BLOOD UREA NITROGEN 9 mg/dL (7-18); CALCIUM 9.3 MG/DL (8.5-10.1); CARBON DIOXIDE 17 MMOL/L (21-32); CHLORIDE 110 MMOL/L (98-107); CREATININE 0.6 MG/DL (0.55-1.30); POTASSIUM 3.5 MMOL/L (3.5-5.1); SODIUM 142 MMOL/L (136-145)
[2018-04-27 08:00] VITALS: BP 110/77
[2018-04-27] MEDS: Topiramate 100mg tab ORAL SCH ×2 (08:25→20:46)
[2018-04-27] MEDS: Docusate 100mg cap ORAL SCH ×2 (08:26→17:03)
--- NOTE | 2018-04-27 08:30 | General Progress Note ---
Assessment/Plan Problem List: (1) Schizoaffective disorder, bipolar type ICD Codes: F25.0 - Schizoaffective disorder, bipolar type SNOMED: 17781530 (2) Violent behavior ICD Codes: R45.6 - Violent behavior SNOMED: 943672058 (3) Anemia ICD Codes: D64.9 - Anemia, unspecified SNOMED: 689459566 (4) Delirium ICD Codes: R41.0 - Disorientation, unspecified SNOMED: 8465966 (5) Seizure ICD Codes: R56.9 - Unspecified convulsions SNOMED: 65632284 Status: stable, progressing Assessment/Plan ot pt diet seizure control neuro tanna eval snf if psyc clear Subjective Constitutional: Reports: weakness Allergies: Coded Allergies: No Known Allergies (Unverified , 04/11/18) All Systems: reviewed and negative except above Subjective sleepy calm Objective Last 24 Hour Vital Signs Date Time Temp Pulse Resp B/P (MAP) Pulse Ox O2 Delivery O2 Flow Rate FiO2 04/27/18 04:37 98.2 74 18 131/96 (108) 98 04/27/18 00:10 98.0 72 18 107/65 (79) 99 04/26/18 21:31 Room Air 04/26/18 20:00 97.0 84 18 110/74 (86) 98 04/26/18 16:00 98.0 91 18 122/74 (90) 99 04/26/18 12:02 98.2 64 18 114/66 (82) 99 Intake and Output 04/26/18 04/27/18 19:00 07:00 Intake Total 1100 ml 120 ml Output Total 1400 ml 2 ml Balance -300 ml 118 ml Intake Oral 960 ml 120 ml IV Total 140 ml Output Urine Total 1400 ml 2 ml Laboratory Tests 04/27/18 05:35: White Blood Count 6.2, Red Blood Count 4.32L, Hemoglobin 12.9L, Hematocrit 37.8L , Mean Corpuscular Volume 88, Mean Corpuscular Hemoglobin 29.9, Mean Corpuscular Hemoglobin Concent 34.1, Red Cell Distribution Width 11.1L, Platelet Count 289, Mean Platelet Volume 5.5L, Neutrophils (%) (Auto) 52.9, Lymphocytes (%) (Auto) 35.9, Monocytes (%) (Auto) 7.2, Eosinophils (%) (Auto) 3.3H, Basophils (%) (Auto) 0.7, Sodium Level 142, Potassium Level 3.5, Chloride Level 110H, Carbon Dioxide Level 17L, Anion Gap 15, Blood Urea Nitrogen 9, Creatinine 0.6, Estimat Glomerular Filtration Rate > 60, Glucose Level 109H, Calcium Level 9.3 Height (Feet): 5 Height (Inches): 8.00 Weight (Pounds): 178 General Appearance: lethargic, confused EENT: normal ENT inspection Neck: normal alignment Cardiovascular: normal peripheral pulses, normal rate, regular rhythm Respiratory/Chest: chest wall non-tender, lungs clear, normal breath sounds Abdomen: normal bowel sounds, non tender, soft Extremities: normal inspection Edema: no edema noted Arm (L), no edema noted Arm (R), no edema noted Leg (L), no edema noted Leg (R), no edema noted Pedal (L), no edema noted Pedal (R), no edema noted Generalized Neurologic: motor weakness Skin: normal pigmentation, warm/dry Jareth Branch DO Apr 27, 2018 08:30
--- NOTE | 2018-04-27 11:57 | Infectious Diseases Prog Note ---
Assessment/Plan Assessment/Plan Assessment/Plan Worsened of mental status compared to the baseline, it appears that the patient has some improvement during this stay. -CT brain: No evidence of acute intracranial hemorrhage. 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 No evidence of infectious process at this time (normal white blood cells, afebrile, no tachycardia or hypertension). -u/a neg, ucx E.coli (colonizer) -Bcx Neg -CXR: no acute diseae Recurrent seizure episodes -Bipolar disorder. -History of cerebral palsy. -History of seizure disorder. PLAN: - We will continue to monitor the patient off of antibiotics at this point. - We will monitor the patient's laboratories, cultures. - If the patient's medical condition worsens due to significant infection based on laboratories, we will start the patient on antibiotic treatment. Subjective Allergies: Coded Allergies: No Known Allergies (Unverified , 04/11/18) Subjective afebrile no leukocytosis off abx Objective Vital Signs Last 24 Hour Vital Signs Date Time Temp Pulse Resp B/P (MAP) Pulse Ox O2 Delivery O2 Flow Rate FiO2 04/27/18 09:00 Room Air 04/27/18 08:00 97.4 77 19 110/77 (88) 97 04/27/18 04:37 98.2 74 18 131/96 (108) 98 04/27/18 00:10 98.0 72 18 107/65 (79) 99 04/26/18 21:31 Room Air 04/26/18 20:00 97.0 84 18 110/74 (86) 98 04/26/18 16:00 98.0 91 18 122/74 (90) 99 04/26/18 12:02 98.2 64 18 114/66 (82) 99 Height (Feet): 5 Height (Inches): 8.00 Weight (Pounds): 178 Objective HEENT: No pale conjunctivae. No icterus. NECK: No lymphadenopathy. CHEST: Clear. HEART: S1 and S2. ABDOMEN: Soft, nontender. EXTREMITIES: No cyanosis at this time. NEUROLOGIC: Awake, appears to be confused. Laboratory Tests Test 04/27/18 05:35 White Blood Count 6.2 K/UL (4.8-10.8) Red Blood Count 4.32 M/UL (4.70-6.10) L Hemoglobin 12.9 G/DL (14.2-18.0) L Hematocrit 37.8 % (42.0-52.0) L Mean Corpuscular Volume 88 FL (80-99) Mean Corpuscular Hemoglobin 29.9 PG (27.0-31.0) Mean Corpuscular Hemoglobin Concent 34.1 G/DL (32.0-36.0) Red Cell Distribution Width 11.1 % (11.6-14.8) L Platelet Count 289 K/UL (150-450) Mean Platelet Volume 5.5 FL (6.5-10.1) L Neutrophils (%) (Auto) 52.9 % (45.0-75.0) Lymphocytes (%) (Auto) 35.9 % (20.0-45.0) Monocytes (%) (Auto) 7.2 % (1.0-10.0) Eosinophils (%) (Auto) 3.3 % (0.0-3.0) H Basophils (%) (Auto) 0.7 % (0.0-2.0) Sodium Level 142 MMOL/L (136-145) Potassium Level 3.5 MMOL/L (3.5-5.1) Chloride Level 110 MMOL/L (98-107) H Carbon Dioxide Level 17 MMOL/L (21-32) L Anion Gap 15 mmol/L (5-15) Blood Urea Nitrogen 9 mg/dL (7-18) Creatinine 0.6 MG/DL (0.55-1.30) Estimat Glomerular Filtration Rate > 60 mL/min (>60) Glucose Level 109 MG/DL (74-106) H Calcium Level 9.3 MG/DL (8.5-10.1) Current Medications Medications (Trade) Dose Ordered Sig/Con Route PRN Reason Start Time Stop Time Status Last Admin Dose Admin Acetaminophen (Tylenol) 650 mg Q4H PRN ORAL T>100.5 04/25/18 15:30 05/11/18 15:29 Bisacodyl (Dulcolax) 10 mg DAILYPRN PRN RECTAL Constipation 04/25/18 15:30 05/22/18 15:29 Dextrose (Dextrose 50%) 25 ml Q30M PRN IV Hypoglycemia 04/25/18 15:30 05/11/18 09:29 Dextrose (Dextrose 50%) 50 ml Q30M PRN IV hypoglycemia 04/25/18 15:30 05/11/18 09:29 Docusate Sodium (Colace) 100 mg TWICE A DAY ORAL 04/25/18 18:00 05/18/18 09:29 04/26/18 17:13 Famotidine (Pepcid) 20 mg BID ORAL 04/26/18 18:00 05/26/18 17:59 04/27/18 08:25 Levetiracetam (Keppra) 1,500 mg Q12HR ORAL 04/25/18 21:00 05/23/18 08:59 04/27/18 08:26 Lorazepam (Ativan 2mg/ml 1ml) 2 mg Q5M PRN IV For Seizures 04/25/18 15:30 05/02/18 15:29 Lorazepam (Ativan) 1 mg Q6H PRN ORAL For Anxiety 04/25/18 15:30 04/28/18 15:29 04/26/18 08:05 Ondansetron HCl (Zofran) 4 mg Q6H PRN ORAL Nausea & Vomiting 04/25/18 15:30 05/13/18 15:29 Polyethylene Glycol (Miralax) 17 gm DAILYPRN PRN ORAL Constipation 04/25/18 15:30 05/22/18 15:29 Potassium Chloride (K-Dur) 40 meq DAILY ORAL 04/27/18 09:00 05/27/18 08:59 04/27/18 08:26 Risperidone (RisperDAL) 2 mg TID ORAL 04/25/18 18:00 05/11/18 09:29 04/27/18 08:25 Topiramate (Topamax) 100 mg Q12HR ORAL 04/25/18 21:00 05/22/18 21:59 04/27/18 08:25 Tressa Sanchez M.D. Apr 27, 2018 11:57
[2018-04-27 12:00] VITALS: BP 138/80
--- NOTE | 2018-04-27 13:40 | Nephrology Progress Note ---
Assessment/Plan Problem List: (1) Hypokalemia (2) Dehydration Assessment 1. Hypokalemia, GI versus renal loss. 2. Hypomagnesemia. 3. Dehydration. 4. Recurrent seizure. 5. History of CP. 6. Mild acidosis. Plan DC current ivf replace k monitoring renal function closely gastric support Subjective ROS Limited/Unobtainable: No Objective Objective Last 24 Hour Vital Signs Date Time Temp Pulse Resp B/P (MAP) Pulse Ox O2 Delivery O2 Flow Rate FiO2 04/27/18 12:00 98.3 87 18 138/80 (99) 97 04/27/18 09:00 Room Air 04/27/18 08:00 97.4 77 19 110/77 (88) 97 04/27/18 04:37 98.2 74 18 131/96 (108) 98 04/27/18 00:10 98.0 72 18 107/65 (79) 99 04/26/18 21:31 Room Air 04/26/18 20:00 97.0 84 18 110/74 (86) 98 04/26/18 16:00 98.0 91 18 122/74 (90) 99 Intake and Output 04/26/18 04/27/18 18:59 06:59 Intake Total 1100 ml 120 ml Output Total 1400 ml 2 ml Balance -300 ml 118 ml Intake Oral 960 ml 120 ml IV Total 140 ml Output Urine Total 1400 ml 2 ml Laboratory Tests 04/27/18 05:35: White Blood Count 6.2, Red Blood Count 4.32L, Hemoglobin 12.9L, Hematocrit 37.8L , Mean Corpuscular Volume 88, Mean Corpuscular Hemoglobin 29.9, Mean Corpuscular Hemoglobin Concent 34.1, Red Cell Distribution Width 11.1L, Platelet Count 289, Mean Platelet Volume 5.5L, Neutrophils (%) (Auto) 52.9, Lymphocytes (%) (Auto) 35.9, Monocytes (%) (Auto) 7.2, Eosinophils (%) (Auto) 3.3H, Basophils (%) (Auto) 0.7, Sodium Level 142, Potassium Level 3.5, Chloride Level 110H, Carbon Dioxide Level 17L, Anion Gap 15, Blood Urea Nitrogen 9, Creatinine 0.6, Estimat Glomerular Filtration Rate > 60, Glucose Level 109H, Calcium Level 9.3 Height (Feet): 5 Height (Inches): 8.00 Weight (Pounds): 178 General Appearance: no apparent distress Objective no change Elie Nation MD Apr 27, 2018 13:40
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
[2018-04-27] MEDS: LORazepam 1mg tab ORAL PRN ×2 (14:05→20:46)
--- NOTE | 2018-04-27 14:32 | Cardiology Report ---
APPROVED REPORT EKG Measurement Heart [id number] Normal sinus rhythm Lateral infarct, age undetermined Abnormal ECG
[2018-04-27 15:59] VITALS: BP 120/80
[2018-04-27 20:00] VITALS: BP 135/78
[2018-04-28] VITALS: BP 93/65
[2018-04-28 04:00] VITALS: BP 101/63
[2018-04-28 07:30] LABS: BASOPHILS % (AUTO) 1.1 % (0.0-2.0); EOSINOPHILS % (AUTO) 2.8 % (0.0-3.0); HEMATOCRIT 41.6 % (42.0-52.0); HEMOGLOBIN 13.8 G/DL (14.2-18.0); LYMPHOCYTES % (AUTO) 39.4 % (20.0-45.0); MEAN CORPUSCULAR VOLUME 89 FL (80-99); MONOCYTES % (AUTO) 8.2 % (1.0-10.0); NEUTROPHILS % (AUTO) 48.5 % (45.0-75.0); PLATELET COUNT 269 K/UL (150-450); RED BLOOD COUNT 4.69 M/UL (4.70-6.10); RED CELL DISTRIBUTION WIDTH 11.6 % (11.6-14.8); WHITE BLOOD COUNT 6.6 K/UL (4.8-10.8)
[2018-04-28 07:44] LABS: ANION GAP 14 mmol/L (5-15); BLOOD UREA NITROGEN 10 mg/dL (7-18); CALCIUM 9.5 MG/DL (8.5-10.1); CARBON DIOXIDE 17 MMOL/L (21-32); CHLORIDE 108 MMOL/L (98-107); CREATININE 0.7 MG/DL (0.55-1.30); POTASSIUM 3.9 MMOL/L (3.5-5.1); SODIUM 139 MMOL/L (136-145)
[2018-04-28] MEDS: Topiramate 100mg tab ORAL SCH ×2 (08:54→21:23)
[2018-04-28] MEDS: Docusate 100mg cap ORAL SCH ×2 (08:55→17:24)
[2018-04-28 09:00] VITALS: BP 126/76
[2018-04-28] MEDS: LORazepam 1mg tab ORAL PRN (10:12)
[2018-04-28 12:00] VITALS: BP 103/69
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
[2018-04-28] MEDS ORDERED: LORazepam Inj 2mg/ml 1ml IM SCH (12:30)
[2018-04-28] MEDS ORDERED: Haloperidol 5mg/ml Inj IM SCH (12:30)
[2018-04-28] MEDS ORDERED: DiphenhydrAMINE 50mg/ml Inj IM SCH (12:30)
--- NOTE | 2018-04-28 13:24 | Nephrology Progress Note ---
Assessment/Plan Problem List: (1) Hypokalemia (2) Dehydration Assessment 1. Hypokalemia, GI versus renal loss. 2. Hypomagnesemia. 3. Dehydration. 4. Recurrent seizure. 5. History of CP. 6. Mild acidosis. Plan DC current ivf replace k monitoring renal function closely gastric support Subjective ROS Limited/Unobtainable: No Objective Objective Last 24 Hour Vital Signs Date Time Temp Pulse Resp B/P (MAP) Pulse Ox O2 Delivery O2 Flow Rate FiO2 04/28/18 12:00 98.6 96 18 103/69 (80) 100 04/28/18 09:00 97.6 78 18 126/76 (93) 100 04/28/18 08:18 Room Air 04/28/18 04:00 98.2 58 18 101/63 (76) 100 04/28/18 00:00 97.6 58 17 93/65 (74) 100 04/27/18 21:00 Room Air 04/27/18 20:00 97.4 70 16 135/78 (97) 99 04/27/18 15:59 97.9 67 19 120/80 (93) 97 Intake and Output 04/27/18 04/28/18 19:00 07:00 Intake Total 500 ml Balance 500 ml Intake Oral 500 ml # Voids 6 2 Laboratory Tests 04/28/18 07:12: White Blood Count 6.6, Red Blood Count 4.69L, Hemoglobin 13.8L, Hematocrit 41.6L , Mean Corpuscular Volume 89, Mean Corpuscular Hemoglobin 29.3, Mean Corpuscular Hemoglobin Concent 33.1, Red Cell Distribution Width 11.6, Platelet Count 269, Mean Platelet Volume 5.6L, Neutrophils (%) (Auto) 48.5, Lymphocytes ( %) (Auto) 39.4, Monocytes (%) (Auto) 8.2, Eosinophils (%) (Auto) 2.8, Basophils (%) (Auto) 1.1, Sodium Level 139, Potassium Level 3.9, Chloride Level 108H, Carbon Dioxide Level 17L, Anion Gap 14, Blood Urea Nitrogen 10, Creatinine 0.7, Estimat Glomerular Filtration Rate > 60, Glucose Level 114H, Calcium Level 9.5 Height (Feet): 5 Height (Inches): 8.00 Weight (Pounds): 178 General Appearance: no apparent distress Objective no change Fouladian,Elie MD Apr 28, 2018 13:24
--- NOTE | 2018-04-28 15:44 | General Progress Note ---
Assessment/Plan Assessment/Plan Covering for Dr. Merrill Branch (1) Schizoaffective disorder, bipolar type ICD Codes: F25.0 - Schizoaffective disorder, bipolar type SNOMED: 01018316 (2) Violent behavior ICD Codes: R45.6 - Violent behavior SNOMED: 595652316 (3) Anemia ICD Codes: D64.9 - Anemia, unspecified SNOMED: 177809461 (4) Delirium ICD Codes: R41.0 - Disorientation, unspecified SNOMED: 3672784 (5) Seizure ICD Codes: R56.9 - Unspecified convulsions SNOMED: 27164589 Status: stable, progressing Subjective Constitutional: Denies: no symptoms, chills, diaphoresis, fever, malaise, weakness, other HEENT: Denies: no symptoms, eye pain, blurred vision, tearing, double vision, ear pain, ear discharge, nose pain, nose congestion, throat pain, throat swelling, mouth pain, mouth swelling, other Cardiovascular: Denies: no symptoms, chest pain, edema, irregular heart rate, lightheadedness, palpitations, syncope, other Respiratory: Denies: no symptoms, cough, orthopnea, shortness of breath, SOB with excertion, SOB at rest, sputum, stridor, wheezing, other Gastrointestinal/Abdominal: Denies: no symptoms, abdomen distended, abdominal pain, black stools, tarry stools, blood in stool, constipated, diarrhea, difficulty swallowing, nausea, poor appetite, poor fluid intake, rectal bleeding , vomiting, other Genitourinary: Denies: no symptoms, burning, discharge, frequency, flank pain, hematuria, incontinence, pain, urgency, other Neurologic/Psychiatric: Denies: no symptoms, anxiety, depressed, emotional problems, headache, numbness, paresthesia, pre-existing deficit, seizure, tingling, tremors, weakness, other Endocrine: Denies: no symptoms, excessive sweating, flushing, intolerance to cold, intolerance to heat, increased hunger, increased thirst, increased urine, unexplained weight gain, unexplained weight loss, other Hematologic/Lymphatic: Denies: no symptoms, anemia, easy bleeding, easy bruising, other Allergies: Coded Allergies: No Known Allergies (Unverified , 04/11/18) Subjective 04/28: feeling better overall, eager for dc, seen by neuro, monitoring labs and meds Objective Last 24 Hour Vital Signs Date Time Temp Pulse Resp B/P (MAP) Pulse Ox O2 Delivery O2 Flow Rate FiO2 04/28/18 14:50 17 99 04/28/18 12:00 98.6 96 18 103/69 (80) 100 04/28/18 09:00 97.6 78 18 126/76 (93) 100 04/28/18 08:18 Room Air 04/28/18 04:00 98.2 58 18 101/63 (76) 100 04/28/18 00:00 97.6 58 17 93/65 (74) 100 04/27/18 21:00 Room Air 04/27/18 20:00 97.4 70 16 135/78 (97) 99 04/27/18 15:59 97.9 67 19 120/80 (93) 97 Intake and Output 04/27/18 04/28/18 18:59 06:59 Intake Total 500 ml Balance 500 ml Intake Oral 500 ml # Voids 6 2 Laboratory Tests 04/28/18 07:12: White Blood Count 6.6, Red Blood Count 4.69L, Hemoglobin 13.8L, Hematocrit 41.6L , Mean Corpuscular Volume 89, Mean Corpuscular Hemoglobin 29.3, Mean Corpuscular Hemoglobin Concent 33.1, Red Cell Distribution Width 11.6, Platelet Count 269, Mean Platelet Volume 5.6L, Neutrophils (%) (Auto) 48.5, Lymphocytes ( %) (Auto) 39.4, Monocytes (%) (Auto) 8.2, Eosinophils (%) (Auto) 2.8, Basophils (%) (Auto) 1.1, Sodium Level 139, Potassium Level 3.9, Chloride Level 108H, Carbon Dioxide Level 17L, Anion Gap 14, Blood Urea Nitrogen 10, Creatinine 0.7, Estimat Glomerular Filtration Rate > 60, Glucose Level 114H, Calcium Level 9.5 Height (Feet): 5 Height (Inches): 8.00 Weight (Pounds): 178 General Appearance: alert EENT: normal ENT inspection Neck: supple Cardiovascular: normal rate Abdomen: non tender Extremities: non-tender Edema: no edema noted Leg (L), no edema noted Leg (R) Edema: mild edema Neurologic: alert Skin: warm/dry Mateo Flores MD Apr 28, 2018 15:44
[2018-04-28 15:45] VITALS: BP 108/60
[2018-04-28 20:00] VITALS: BP 102/71
[2018-04-29 01:22] VITALS: BP 97/62
[2018-04-29 04:00] VITALS: BP 98/53
[2018-04-29] MEDS ORDERED: Haloperidol 5mg/ml Inj IM SCH ×2 (04:00→13:45)
[2018-04-29] MEDS ORDERED: DiphenhydrAMINE 50mg/ml Inj IM SCH ×2 (04:00→13:45)
[2018-04-29] MEDS ORDERED: LORazepam Inj 2mg/ml 1ml IV SCH (04:00)
[2018-04-29] MEDS ORDERED: LORazepam Inj 2mg/ml 1ml IM SCH ×2 (04:30→13:45)
[2018-04-29 08:00] VITALS: BP 163/86
[2018-04-29] MEDS: Topiramate 100mg tab ORAL SCH (09:46)
[2018-04-29] MEDS: Docusate 100mg cap ORAL SCH (09:47)
[2018-04-29 12:00] VITALS: BP 108/71
--- NOTE | 2018-04-29 13:01 | Infectious Diseases Prog Note ---
Assessment/Plan Assessment/Plan Assessment/Plan Worsened of mental status compared to the baseline, it appears that the patient has some improvement during this stay. -CT brain: No evidence of acute intracranial hemorrhage. 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 No evidence of infectious process at this time (normal white blood cells, afebrile, no tachycardia or hypertension). -u/a neg, ucx E.coli (colonizer) -Bcx Neg -CXR: no acute diseae Recurrent seizure episodes -Bipolar disorder. -History of cerebral palsy. -History of seizure disorder. PLAN: - We will continue to monitor the patient off of antibiotics at this point. - We will monitor the patient's laboratories, cultures. - If the patient's medical condition worsens due to significant infection based on laboratories, we will start the patient on antibiotic treatment. Subjective Allergies: Coded Allergies: No Known Allergies (Unverified , 04/11/18) Subjective afebrile no leukocytosis off abx Objective Vital Signs Last 24 Hour Vital Signs Date Time Temp Pulse Resp B/P (MAP) Pulse Ox O2 Delivery O2 Flow Rate FiO2 04/29/18 09:00 Room Air 04/29/18 08:00 97.5 114 18 163/86 (111) 96 04/29/18 04:00 97.3 61 18 98/53 (68) 100 04/29/18 01:22 98.0 62 18 97/62 (74) 100 04/28/18 21:00 Room Air 04/28/18 20:00 97.3 69 18 102/71 (81) 99 04/28/18 15:45 97.9 77 18 108/60 (76) 100 04/28/18 14:50 17 99 Height (Feet): 5 Height (Inches): 8.00 Weight (Pounds): 185 Objective HEENT: No pale conjunctivae. No icterus. NECK: No lymphadenopathy. CHEST: Clear. HEART: S1 and S2. ABDOMEN: Soft, nontender. EXTREMITIES: No cyanosis at this time. NEUROLOGIC: Awake, appears to be confused. Current Medications Medications (Trade) Dose Ordered Sig/Con Route PRN Reason Start Time Stop Time Status Last Admin Dose Admin Acetaminophen (Tylenol) 650 mg Q4H PRN ORAL T>100.5 04/25/18 15:30 05/11/18 15:29 Bisacodyl (Dulcolax) 10 mg DAILYPRN PRN RECTAL Constipation 04/25/18 15:30 05/22/18 15:29 Dextrose (Dextrose 50%) 25 ml Q30M PRN IV Hypoglycemia 04/25/18 15:30 05/11/18 09:29 Dextrose (Dextrose 50%) 50 ml Q30M PRN IV hypoglycemia 04/25/18 15:30 05/11/18 09:29 Docusate Sodium (Colace) 100 mg TWICE A DAY ORAL 04/25/18 18:00 05/18/18 09:29 04/29/18 09:47 Famotidine (Pepcid) 20 mg BID ORAL 04/26/18 18:00 05/26/18 17:59 04/29/18 09:51 Levetiracetam (Keppra) 1,500 mg Q12HR ORAL 04/25/18 21:00 05/23/18 08:59 04/29/18 09:46 Lorazepam (Ativan 2mg/ml 1ml) 2 mg Q5M PRN IV For Seizures 04/25/18 15:30 05/02/18 15:29 Ondansetron HCl (Zofran) 4 mg Q6H PRN ORAL Nausea & Vomiting 04/25/18 15:30 05/13/18 15:29 Polyethylene Glycol (Miralax) 17 gm DAILYPRN PRN ORAL Constipation 04/25/18 15:30 05/22/18 15:29 Potassium Chloride (K-Dur) 40 meq DAILY ORAL 04/27/18 09:00 05/27/18 08:59 04/29/18 09:46 Risperidone (RisperDAL) 2 mg TID ORAL 04/25/18 18:00 05/11/18 09:29 04/29/18 09:46 Topiramate (Topamax) 100 mg Q12HR ORAL 04/25/18 21:00 05/22/18 21:59 04/29/18 09:46 Tressa Sanchez M.D. Apr 29, 2018 13:01
[2018-04-29] MEDS ORDERED: ACETAMINOPHEN325 M1 ORAL (14:53)
[2018-04-29] MEDS ORDERED: BISACODYL10 M1 RC (14:54)
[2018-04-29] MEDS ORDERED: DOCUSATE SODIU100 MG ORAL (14:55)
[2018-04-29] MEDS ORDERED: FAMOTIDINE10 MG ORAL (14:56)
[2018-04-29] MEDS ORDERED: KEPPRA500 M4 ORAL (14:57)
[2018-04-29] MEDS ORDERED: ZOFRAN4 M3 ORAL (14:58)
[2018-04-29] MEDS ORDERED: MIRALAX17 G2 ORAL (14:59)
[2018-04-29] MEDS ORDERED: POTASSIUM CHLO20 ME1 ORAL (15:01)
[2018-04-29] MEDS ORDERED: RISPERDAL2 MG ORAL (15:02)
[2018-04-29] MEDS ORDERED: TOPIRAMATE100 MG ORAL (15:03)
[2018-04-29 16:00] VITALS: BP 99/61
--- NOTE | 2018-04-29 16:15 | General Progress Note ---
Assessment/Plan Status: stable Assessment/Plan Covering for Dr. Merrill Branch (1) Schizoaffective disorder, bipolar type ICD Codes: F25.0 - Schizoaffective disorder, bipolar type SNOMED: 70676374 (2) Violent behavior ICD Codes: R45.6 - Violent behavior SNOMED: 523786662 (3) Anemia ICD Codes: D64.9 - Anemia, unspecified SNOMED: 271286784 (4) Delirium ICD Codes: R41.0 - Disorientation, unspecified SNOMED: 5792936 (5) Seizure ICD Codes: R56.9 - Unspecified convulsions SNOMED: 20033711 Status: stable, progressing RECS: - monitor off of abx. Subjective Date patient seen: Apr 29, 2018 Allergies: Coded Allergies: No Known Allergies (Unverified , 04/11/18) All Systems: reviewed and negative except above Subjective 04/28: feeling better overall, eager for dc, seen by neuro, monitoring labs and meds 04/29: Pt awake and agitated. Pt off of abx. No acute events. VS stable. Objective Last 24 Hour Vital Signs Date Time Temp Pulse Resp B/P (MAP) Pulse Ox O2 Delivery O2 Flow Rate FiO2 04/29/18 12:00 97.7 70 20 108/71 (83) 98 04/29/18 09:00 Room Air 04/29/18 08:00 97.5 114 18 163/86 (111) 96 04/29/18 04:00 97.3 61 18 98/53 (68) 100 04/29/18 01:22 98.0 62 18 97/62 (74) 100 04/28/18 21:00 Room Air 04/28/18 20:00 97.3 69 18 102/71 (81) 99 Intake and Output 04/28/18 04/29/18 19:00 07:00 Intake Total 1000 ml Balance 1000 ml Intake Oral 1000 ml # Voids 8 5 # Bowel Movements 2 1 Height (Feet): 5 Height (Inches): 8.00 Weight (Pounds): 185 General Appearance: no apparent distress, agitated EENT: PERRL/EOMI Neck: normal alignment Cardiovascular: normal peripheral pulses Respiratory/Chest: no respiratory distress Abdomen: soft Mateo Flores MD Apr 29, 2018 16:15
[2018-04-29 16:30] VITALS: BP 109/68
--- NOTE | 2018-04-30 16:52 | Diagnostic Imaging Report ---
APPROVED REPORT CPT Code: 12806 Present Symptoms Lower Extremity Pain: Bilateral BILATERAL: Imaging reveals a patent deep venous system bilaterally. There is no evidence of thrombus within the femoral, popliteal or tibial segments. The greater saphenous veins are also within normal limits. Doppler indicates normal spontaneous flow within these segments.
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
== END 2018-04-29 16:35 | DRG 756 ==
LOC: EDBD 01:04 → EMR 01:30 → EDBEDREQ 07:20 → 4E 07:45 → EDBEDREQ 08:59 → 4E 17:04 → 2E 04-20 08:15 → 4E 04-22 17:13 → 2E 04-25 02:13 → 3E 04-25 14:40
DX: R45.6 Violent behavior (principal); E83.42 Hypomagnesemia; E87.2 Acidosis; R41.0 Disorientation, unspecified; F20.0 Paranoid schizophrenia; G40.909 Epilepsy, unspecified, not intractable, without status epilepticus; D64.9 Anemia, unspecified; E87.6 Hypokalemia; F25.0 Schizoaffective disorder, bipolar type; G80.9 Cerebral palsy, unspecified; E86.0 Dehydration; Z87.820 Personal history of traumatic brain injury
CPT/HCPCS: 36415; 70450; 71045; 80048; 80053; 80061; 80076; 80299; 80307; 80329; 81003; 83735; 84100; 84443; 85025; 86140; 87040; 87081; 87086; 87181; 93005; 93970; 96374; 99285; J1815; J8499